=== PATIENT | female | born 1945 | race Caucasian/White ===

== ENCOUNTER → 2016-10-06 | Outpatient (CLI) | payer OTHER, BC ==
[~2016-10-06] MED LIST: CALCTAB5 PO; CENTTAB41; CEPH500C2 PO; CRS10 PO; FRS/40 PO; FSM70 PO; IRON; POTA20TA16 PO; PRM/45 PO; STLS
--- NOTE | 2016-10-06 10:29 | DIAGNOSTIC IMAGING REPORT ---
BILATERAL LOWER EXTREMITY VENOUS DOPPLER HISTORY: Pain BILAT CHRONIC EMBOLISM/THROMBOS COMPARISON STUDY: None. FINDINGS: There is normal compressibility, flow, and augmentation within the bilateral lower extremity deep venous systems. IMPRESSION: No DVT within the right or left lower extremity. Electronically signed by: Franco Hanson M.D. 10/06/2016 10:27 AM Dictated Date/Time: 10/06/2016 10:26 AM
== END | disposition home or self-care (01) ==
LOC: C.ULTR 09:40
PROVIDERS: ATTEND Podiatrist
DX: I70.293 Other atherosclerosis of native arteries of extremities, bilateral legs (principal); M79.675 Pain in left toe(s); M79.674 Pain in right toe(s)

== ENCOUNTER → 2017-11-19 | Outpatient (CLI) | payer OTHER, BC ==
[~2017-11-19] MED LIST changes: +POTA-639 PO; -POTA20TA16 PO
--- NOTE | 2017-11-19 12:46 | DIAGNOSTIC IMAGING REPORT ---
R TIBIA/FIBULA 2 VIEWS ROUTINE HISTORY: 72 years-old Female OSTEOPENIA acute right lower leg pain and swelling with fall. COMPARISON: None available TECHNIQUE: 2 views of the right tibia and fibula FINDINGS: The bones appear mildly demineralized. Mild marginal spurring about the tibial spines with mild medial and lateral compartment degenerative changes. Small calcified about the Achilles insertion site calcaneus. There is no acute fracture or dislocation. Peripheral arterial calcifications are noted. There is a focal area of soft tissue swelling within the superficial subcutaneous pretibial tissues measuring up to 3.6 x 0.8 cm. IMPRESSION: 1. No acute fracture. 2. Focal area of soft tissue swelling within the superficial subcutaneous pretibial tissues measures up to 3.6 cm in length. The above report was generated using voice recognition software. It may contain grammatical, syntax or spelling errors. Electronically signed by: Roger Mccabe M.D. 11/19/2017 12:45 PM Dictated Date/Time: 11/19/2017 12:43 PM
== END | disposition home or self-care (01) ==
LOC: C.RADBC 12:15
PROVIDERS: ATTEND Nurse Practitioner Family
DX: M85.88 Other specified disorders of bone density and structure, other site (principal)

== ENCOUNTER 2023-02-08 12:51 | Observation (INO) ==
[2023-02-08 14:02] LABS: Basophils # (auto) 0.03 K/uL (0.00-0.20); Basophils % (auto) 0.5 %; Eosinophils # (auto) 0.19 K/uL (0.00-0.50); Eosinophils % (auto) 3.1 %; Hematocrit (blood only) 39.1 % (37.0-47.0); Hemoglobin 13.5 g/dl (12.0-16.0); Immature Granulocytes # (auto) 0.01 K/uL (0.01-0.20); Immature Granulocytes % (auto) 0.2 %; Lymphocytes % (auto) 21.5 %; Mean Corpuscular Hemoglobin 32.1 pg (25.0-34.0); Mean Corpuscular Hgb Conc 34.5 g/dL (32.0-36.0); Mean Corpuscular Volume 93.1 fL (80.0-100.0); Monocytes # (auto) 0.33 K/uL (0.11-0.59); Monocytes % (auto) 5.4 %; Neutrophils % (auto) 69.3 %; Platelet Count 210 K/uL (130-400); RDW Coefficient of Variation 12.4 % (11.5-14.5); RDW Standard Deviation 42.2 fL (36.4-46.3); White Blood Count 6.06 K/ul (4.8-10.8)
[2023-02-08 14:19] LABS: Alanine Aminotransferase 12 U/L (7-52); Albumin Globulin Ratio 1.3 (0.9-2); Albumin Level 3.8 gm/dl (3.4-5.0); Alkaline Phosphatase 58 U/L (34-104); Anion Gap 6 (3-11); Aspartate Aminotransferase 18 U/L (13-39); BUN Creatinine Ratio 13.8 (10-20); Bilirubin,Total 0.5 mg/dl (0.2-1.0); Blood Urea Nitrogen 15 mg/dl (6-23); Carbon Dioxide 30 mmol/L (21-32); Chloride 103 mmol/L (98-107); Creatinine Clr Calc Pharmacy 31.5 ml/min; Est GFR (African American) 57.1 ml/min; Est GFR (Non-African American) 49.3 ml/min; Globulin 2.9 gm/dl (2.5-4.0); Glucose 179 mg/dl (70-99(Fasting)); Potassium 3.1 mmol/L (3.5-5.1); Sodium 139 mmol/L (136-145); Total Protein 6.7 gm/dl (6.0-8.3)
[2023-02-08 14:28] LABS: INR 0.9 (0.9-1.1); Partial Thromboplastin Ratio 0.9; Partial Thromboplastin Time 24.3 Seconds (21.0-31.0); Prothrombin Time 9.9 Seconds (9.0-12.0)
--- NOTE | 2023-02-08 16:21 | Ultrasound Report ---
LEFT LOWER EXTREMITY VENOUS DOPPLER HISTORY: Acute pain and swelling of the left lower leg Redness, swelling, pain,DVT COMPARISON STUDY: 01/29/2023. FINDINGS: There is normal compressibility, flow, and augmentation within the left lower extremity [place] p venous system. Subcutaneous edema. IMPRESSION: No DVT within the left lower extremity. ACT 112: Negative or not required by law. Electronically signed by: Zia Mccabe M.D. 02/08/2023 4:19 PM
[2023-02-08] MEDS ORDERED: VANCOMYCIN HCL 1,250 MG in SODIUM CHLORIDE 0.9% 500 ML IV ONE (16:36)
[2023-02-08] MEDS ORDERED: VANCOMYCIN CONSULT ACTIVE PRN (16:36)
--- NOTE | 2023-02-08 16:40 | Emergency Department Note ---
Impression & Plan Cellulitis ED Provider Note NAME: ARGENTINA GIVENS AGE: 77 SEX: F : 1945 ARRIVES VIA: Walk-In INFORMANT: Patient, ED PROVIDER(S): Delano Stock MD CHIEF COMPLAINT worsening cellulitis HPI: This is a 77-year-old female presenting for worsening cellulitis of the left lower extremity. Patient states that previously she had sustained an injury to this left lower extremity. She notes that she was seen in the ER for cellulitis and given Keflex. Since then she has noticed slight worsening of the pain. Similar in terms of her redness, swelling. She was seen at wound care today who advised her to come into the hospital for worsening infection. At this time she has reported no fevers, chills, nausea or vomiting. ROS: See above HPI for pertinent positives & negatives. A total of 10 systems reviewed and were otherwise negative. PAST MEDICAL HISTORY: See Below PAST SURGICAL HISTORY: See Below FAMILY HISTORY: See Below SOCIAL HISTORY: See Below HOME MEDICATIONS: See Below ALLERGIES: See Below VITALS: See Below PHYSICAL EXAMINATION: General: resting comfortably in no acute distress Head: Normocephalic and atraumatic Eyes: Normal inspection, extraocular muscles intact, no conjunctival pallor Ear, nose, throat: Normal external exam Neck: Normal range of motion Respiratory: Patient is in no respiratory distress, lungs clear to auscultation bilaterally Cardiovascular: RRR without murmur appreciated GI: soft, nontender, no guarding or rebound Extremities: No left lower extremity shows multiple wounds, posterior wound with area of opening, no significant pus drainage, significant cellulitis and moderate swelling/fluctuance Neuro: The patient awake and alert, appropriately conversive,no focal decifits Skin: Warm, dry, and intact MEDICAL DECISION MAKING: This is a 77-year-old female presenting for worsening cellulitis of left lower extremity. We will do x-ray to rule out DVT however low likelihood. Patient's DVT study is not revealing of blood clot. Otherwise patient's blood work is reviewed by me showingNo leukocytosis or anemia, electrolytes are within normal limits abdomen/hypokalemia. LFTs within normal limits. Will admit for worsening cellulitis despite p.o. antibiotics. Triage Nursing notes reviewed. Prior medical records reviewed Vital Signs: reviewed and remarkable for no significant abnormalities Differential diagnosis: Low concern for neck Fash, consider cellulitis, DVT ER treatment provided: See below Diagnostics interpreted by me: ECG: None Cardiac Monitoring: An order was placed for continuous cardiac monitoring. The monitor shows a rate of 64 with sinus rhythm. Laboratory studies: As stated above and show below. Imaging studies: See below. Radiographic imaging was reviewed by myself Consultation(s): None Past Med/Surg History Medical History (Updated 02/08/23 @ 18:55 by Delano Stock MD) Hypokalemia Hx of deep venous thrombosis Coronary artery disease HLD (hyperlipidemia) H/O: HTN (hypertension) Cat bite Chronic venous insufficiency Surgical History Status post endovenous radiofrequency ablation of saphenous vein Venoseal procedure done 2020 H/O bladder repair surgery Hx of CABG H/O: hysterectomy H/O hernia repair Family History Other No significant family history Social History Smoking Status: Never smoker Hx Alcohol Use: Yes Alcohol Intake Frequency Comment: Very seldom Hx Substance Use: No Preferred Language: [place]al[place] Communication Ability: Effective Visual Impairment: Limited Hearing Ability: Normal Beliefs That Will Affect Care: None marital status: Current Living Situation: Spouse current occupational status: unemployed How many Children do You have: 3 How many Children do You have Comment: 2 children are local, one may help with care as needed. Spouse also able to assist as needed. Feels Safe at Home: Yes Diet: regular during the past year weight has: remained stable Assistive Devices: Stair Lift Allergies Allergies Allergy/AdvReac Type Severity Reaction Status Date / Time No Known Allergies Allergy Verified 01/31/23 11:36 Home Meds Home Medications Medication Instructions Recorded Confirmed aspirin 81 mg tablet,delayed 81 mg PO QAM 02/14/19 02/08/23 release (Adult Low Dose Aspirin) chlorthalidone 25 mg tablet 25 mg PO QAM 02/14/19 02/08/23 furosemide 40 mg tablet 40 mg PO QAM 02/14/19 02/08/23 multivitamin 1 tab PO HS 02/14/19 02/08/23 rosuvastatin 40 mg tablet (Crestor) 40 mg PO HS 02/14/19 02/08/23 conjugated estrogens 1.25 mg 1.25 mg PO DAILY 08/31/20 02/08/23 tablet (Premarin) cholecalciferol (vitamin D3) 25 25 mcg PO DAILY 08/29/22 02/08/23 mcg (1,000 unit) capsule ferrous sulfate 325 mg (65 mg 325 mg PO DAILY 08/29/22 02/08/23 iron) tablet potassium chloride 20 mEq 60 meq PO TID 01/16/23 02/08/23 tablet,extended release(part/cryst) calcium carbonate 600 mg calcium 600 mg PO BID 02/08/23 02/08/23 (1,500 mg) tablet (Calcium) riboflavin (vitamin B2) 100 mg 100 mg PO QAM 02/08/23 02/08/23 tablet (Vitamin B-2) Results & Data (ED) Vital Signs Vital Signs - 24 hr 02/08/23 13:06 02/08/23 14:54 02/08/23 16:59 Temperature 36.7 C Temperature Source Skin Pulse Rate 84 Pulse Rate [Finger] 67 64 Respiratory Rate 18 16 18 Respiratory Effort / Characteristics Non-Labored Spontaneous Non-Labored Spontaneous Respiratory Depth Normal Normal Respiratory Pattern Regular Blood Pressure 108/63 Blood Pressure [Right Arm] 128/71 113/57 L Blood Pressure Mean 78 Blood Pressure Mean [Right Arm] 90 75 Pulse Oximetry 98 96 98 Oxygen Delivery Method Room Air Room Air Room Air Sepsis Recent Fever Within 48 Hours No Sepsis New/Unexplained Change in Mental Status No Sepsis Action Taken by Nursing No Action Required Laboratory Data 02/08/23 13:34 02/08/23 13:34 Lab Results 02/08/23 Range/Units 13:34 WBC 6.06 (4.8-10.8) K/ul RBC 4.20 (4.20-5.40) M/uL Hgb 13.5 (12.0-16.0) g/dl Hct 39.1 (37.0-47.0) % MCV 93.1 (80.0-100.0) fL MCH 32.1 (25.0-34.0) pg MCHC 34.5 (32.0-36.0) g/dL RDW Std Deviation 42.2 (36.4-46.3) fL RDW Coeff of Vanda 12.4 (11.5-14.5) % Plt Count 210 (130-400) K/uL MPV 11.0 (9.4-12.4) fL Immature Gran % (Auto) 0.2 % Neut % (Auto) 69.3 % Lymph % (Auto) 21.5 % Franklin % (Auto) 5.4 % Eos % (Auto) 3.1 % Baso % (Auto) 0.5 % Neut # (Auto) 4.20 (1.40-6.50) K/uL Lymph # (Auto) 1.30 (1.20-3.40) K/uL Franklin # (Auto) 0.33 (0.11-0.59) K/uL Eos # (Auto) 0.19 (0.00-0.50) K/uL Baso # (Auto) 0.03 (0.00-0.20) K/uL Immature Gran # (Auto) 0.01 (0.01-0.20) K/uL PT 9.9 (9.0-12.0) Seconds INR 0.9 (0.9-1.1) APTT 24.3 (21.0-31.0) Seconds PTT Ratio 0.9 Sodium 139 (136-145) mmol/L Potassium 3.1 L (3.5-5.1) mmol/L Chloride 103 (98-107) mmol/L Carbon Dioxide 30 (21-32) mmol/L Anion Gap 6 (3-11) BUN 15 (6-23) mg/dl Creatinine 1.09 (0.6-1.2) mg/dl Est Cr Clr Drug Dosing 31.5 ml/min Est GFR ( Amer) 57.1 ml/min Est GFR (Non-Af Amer) 49.3 ml/min BUN/Creatinine Ratio 13.8 (10-20) Glucose 179 H (70-99(Fasting)) mg/dl Calcium 10.0 (8.6-10.3) mg/dl Total Bilirubin 0.5 (0.2-1.0) mg/dl AST 18 (13-39) U/L ALT 12 (7-52) U/L Alkaline Phosphatase 58 (34-104) U/L Total Protein 6.7 (6.0-8.3) gm/dl Albumin 3.8 (3.4-5.0) gm/dl Globulin 2.9 (2.5-4.0) gm/dl Albumin/Globulin Ratio 1.3 (0.9-2) Administered Medications Vancomycin HCl 1,250 mg/ (Sodium Chloride) 525 mls @ 200 mls/hr IV NOW ONE Stop: 02/08/23 19:13 Last Admin: 02/08/23 16:54 Dose: 200 mls/hr Documented By: MT Imaging Data Radiologist's Impression: Venous Doppler Study 02/08/23 15:11 LEFT LOWER EXTREMITY VENOUS DOPPLER HISTORY: Acute pain and swelling of the left lower leg Redness, swelling, pain,DVT COMPARISON STUDY: 01/29/2023. FINDINGS: There is normal compressibility, flow, and augmentation within the left lower extremity deep venous system. Subcutaneous edema. IMPRESSION: No DVT within the left lower extremity. ACT 112: Negative or not required by law. Electronically signed by: Zia Mccabe M.D. 02/08/2023 4:19 PM Discharge Plan Visit Data Chief Complaint: Wound Stated Complaint: INFECTION IN WOUND, REF BY WOUND CENTER ED Provider: Delano Stock Discharge Problem: Cellulitis Forms Stand Alone Forms: My [facility] Prescriptions Prescriptions: No Action ferrous sulfate 325 mg (65 mg iron) tablet 325 mg PO DAILY cholecalciferol (vitamin D3) 25 mcg (1,000 unit) capsule 25 mcg PO DAILY aspirin [Adult Low Dose Aspirin] 81 mg tablet,delayed release (DR/EC) 81 mg PO QAM multivitamin tablet 1 tab PO HS Rx Instructions: gummy chlorthalidone 25 mg tablet 25 mg PO QAM furosemide 40 mg tablet 40 mg PO QAM rosuvastatin [Crestor] 40 mg tablet 40 mg PO HS riboflavin (vitamin B2) [Vitamin B-2] 100 mg Tablet 100 mg PO QAM calcium carbonate [Calcium 600] 600 mg calcium (1,500 mg) Tablet 600 mg PO BID Premarin 1.25 mg tablet 1.25 mg PO DAILY potassium chloride 20 mEq tablet,ER particles/crystals 60 meq PO TID Referrals Referrals: Amol Voss MD [Primary Care Provider] -
--- NOTE | 2023-02-08 17:52 | History & Physical Report ---
Date of Service February 08, 2023 Assessment & Plan (1) Cellulitis of left lower leg: Plan: Erythematous, edematous LLE x3 weeks Came in at the [facility] wound clinic Patient recently finished a course of Keflex 500 mg p.o. twice daily x10 days Afebrile No leukocytosis Wound culture pending Started on vancomycin while inpatient Continue vancomycin, will add on Unasyn 3000g IV every 6 hours MRSA nasal swab pending CRP pending Continue Lasix 40 mg p.o. QAM for LLE edema A.m. CBC, BMP (2) H/O: HTN (hypertension): Plan: Continue chlorthalidone, Lasix (3) Hx of deep venous thrombosis: Plan: 5 years ago per patient Venous Doppler of RLE on arrival was negative for DVT (4) HLD (hyperlipidemia): Plan: Continue rosuvastatin (5) Hypokalemia: Plan: K 3.1 on arrival; may be chronic Continue potassium supplementation 60mEq p.o. TID Consider holding Lasix if potassium continues to decline Monitor with daily BMPs Plan Disposition: Obs -admit to [facility] [place] Full code Regular diet VTE PPx: Heparin 5000 units q12h History of Present Illness Chief Complaint: Wound Primary Care Provider: Amol Voss MD Mary Carmen is a 77-year-old female with PMH of venous stasis ulcers, DVT, cellulitis of the LLE. She was referred by the wound clinic for worsening pain and swelling of the left calf x3 weeks. Her lower left calf swelling began after she hit a chair in December causing an open wound that got infected. She then had a second injury to the LLE 3 weeks ago when a car table fell on her lower leg. Patient states that the LLE has been actively draining and hot to touch. Previously seen in the ED on 01/29/2023 and started on a course of cephalexin 500 mg p.o. twice daily x10 days. Patient reports she took the full course of Keflex except for her last pill today. Patient also reports a course of outpatient Doxycycline in early December. She has been taking advil 1 tab in the morning and 2 tabs at night (intermittently) for left calf pain. No radiation above the knee. Left calf pain is alleviated when walking, worse when laying in bed. Venous Doppler today showed no DVT in the LLE. Hx of DVT 5y ago. Vitals stable at time of admission. ED course: Vancomycin 1250 mg ROS: Patient endorses intermittent LLE pain and numbness. Patient denies fever, chills, nightsweat, [place], dizziness, lightheadedness, CP, pleuritic CP, SOB, abdominal pain, N/V/D, urinary s/s, burning with urination. PMHx of DVT in 2018. No PMHx of NH, CVA, diabetes, or cancer. Allergies Allergy/AdvReac Type Severity Reaction Status Date / Time No Known Allergies Allergy Verified 01/31/23 11:36 Home Medications Medication Instructions Recorded Confirmed Type aspirin 81 mg tablet,delayed 81 mg PO QAM 02/14/19 02/08/23 History release (Adult Low Dose Aspirin) chlorthalidone 25 mg tablet 25 mg PO QAM 02/14/19 02/08/23 History furosemide 40 mg tablet 40 mg PO QAM 02/14/19 02/08/23 History multivitamin 1 tab PO HS 02/14/19 02/08/23 History rosuvastatin 40 mg tablet (Crestor) 40 mg PO HS 02/14/19 02/08/23 History conjugated estrogens 1.25 mg 1.25 mg PO DAILY 08/31/20 02/08/23 History tablet (Premarin) cholecalciferol (vitamin D3) 25 25 mcg PO DAILY 08/29/22 02/08/23 History mcg (1,000 unit) capsule ferrous sulfate 325 mg (65 mg 325 mg PO DAILY 08/29/22 02/08/23 History iron) tablet potassium chloride 20 mEq 60 meq PO TID 01/16/23 02/08/23 History tablet,extended release(part/cryst) calcium carbonate 600 mg calcium 600 mg PO BID 02/08/23 02/08/23 History (1,500 mg) tablet (Calcium) riboflavin (vitamin B2) 100 mg 100 mg PO QAM 02/08/23 02/08/23 History tablet (Vitamin B-2) Past Med/Surg History Medical History (Updated 02/08/23 @ 18:55 by Delano Stock MD) Hypokalemia Hx of deep venous thrombosis Coronary artery disease HLD (hyperlipidemia) H/O: HTN (hypertension) Cat bite Chronic venous insufficiency Surgical History Status post endovenous radiofrequency ablation of saphenous vein Venoseal procedure done 2020 H/O bladder repair surgery Hx of CABG H/O: hysterectomy H/O hernia repair Family History Other No significant family history Social History Smoking Status: Former smoker Hx Alcohol Use: No Hx Substance Use: No Preferred Language: Kazakh Communication Ability: Effective Visual Impairment: Limited Hearing Ability: Normal Beliefs That Will Affect Care: None marital status: Current Living Situation: Spouse current occupational status: unemployed How many Children do You have: 3 How many Children do You have Comment: 2 children are local, one may help with care as needed. Spouse also able to assist as needed. Feels Safe at Home: Yes Safety Concerns: Feels Safe At This Time Diet: regular during the past year weight has: remained stable Assistive Devices: None Review of Systems 2 Review of Systems: See HPI above Physical Exam 2 Physical Exam: General: no acute distress; non-toxic appearing; well-nourished; cooperative HEENT: normocephalic, atraumatic; no scleral icterus; PERRLA w/ EOMs intact; moist mucus membrane; vision and hearing grossly intact Neck: supple; no JVD; no lymphadenopathy; trachea midline Skin: warm, dry without signs of tenting; no cyanosis; no rashes, bruising, lesions, or erythema noted CV: chest wall NTP; RRR; S1/S2 normal; no murmurs/rubs/gallops; pulses intact and symmetric at radial, DP, and PT Lungs: no acute respiratory distress; symmetrical chest wall expansion; clear breath sounds across all lung metcalf w/o adventitious sounds; no wheezing ABD: Soft, NTP; BS present; no rebound/guarding; no ascites; no distention; negative CVA tenderness RLE: Not warm to touch; nonerythematous; edematous LLE: Warm to touch; erythematous; edematous; wounds dressed on the posterior lower calf and mid lateral tibia MSK: no tics or fasciculations; patient exhibits the ability to wiggle toes; full ROM of LEs; +5/5 strength in the LEs b/l; bruising on right knee Neuro: A&Ox3; normal mood and affect; fluent speech; no focal deficits; sensation grossly intact in the LEs B/l Results & Data Results & Data Vital Signs (Past 12 Hours) Vital Signs Temp Pulse Pulse Resp BP BP Pulse Ox 02/08/23 16:59 64 18 113/57 L 98 02/08/23 14:54 67 16 128/71 96 02/08/23 13:06 36.7 C 84 18 108/63 98 O2 Del Method 02/08/23 16:59 Room Air 02/08/23 14:54 Room Air 02/08/23 13:06 Room Air Laboratory Results Abnormal lab results 02/08/23 Range/Units 13:34 Potassium 3.1 L (3.5-5.1) mmol/L Glucose 179 H (70-99(Fasting)) mg/dl Diagnostic Findings Venous Doppler Study 02/08/23 15:11 LEFT LOWER EXTREMITY VENOUS DOPPLER HISTORY: Acute pain and swelling of the left lower leg Redness, swelling, pain,DVT COMPARISON STUDY: 01/29/2023. FINDINGS: There is normal compressibility, flow, and augmentation within the left lower extremity deep venous system. Subcutaneous edema. IMPRESSION: No DVT within the left lower extremity. ACT 112: Negative or not required by law. Electronically signed by: Zia Mccabe M.D. 02/08/2023 4:19 PM Code Status & VTE Plan Code Status Full code VTE Prophylaxis Plan VTE Prophylaxis will be ordered: Yes Supervising Physician Co-Signing Physician Notes Patient seen and examined, chart reviewed, case discussed with Georges Valentino PA-C and I agree with the assessment and plan as above except as otherwise noted above. 77yo F who presents with LLE warmth, tenderness, erythema, and swelling unimproved after keflex. ON exam leg is w/ asymmetrical warmth with demarcated erythema, tenderness, and swelling. NO popliteral tenderness. Doppler for DVT. Nontoxic, no sepsis. Agree w/ coverage for cellulitis failing inpatient tx. UNasyn/vanc reasonable, wean vanc if MRSA swab negative. IF improved can target Augmentin for dc. Agree w/ assessment and management above PG Care Time/CCT Total # of Minutes Spent Total Time Spent with Patient: Total time spent is greater than 50% in coordination of care (as documented) at patient's floor/unit and/or counseling patient: Coding [place] [address] INT INP/OBS CARE 40MIN Patient Type Established Medical Decision Making Low Complexity Diagnoses Cellulitis of left lower leg L03.116 H/O: HTN (hypertension) Z86.79 Hx of deep venous thrombosis Z86.718 HLD (hyperlipidemia) E78.5 Hypokalemia E87.6
[2023-02-08 19:08] LABS: C Reactive Protein < 0.50 mg/dl (0-0.5)
[2023-02-08] MEDS ORDERED: ACETAMINOPHEN 325 MG TAB PO PRN (21:09)
[2023-02-08] MEDS: HEPARIN SOD 5,000 UNIT/0.5 ML VIAL SQ SCH (22:21)
[2023-02-08] MEDS: AMPICILLIN/SULBACTAM SOD 3,000 MG in SODIUM CHLOR 0.9% MINI-B 100 ML IV SCH (22:21)
[2023-02-08] MEDS: ROSUVASTATIN CALCIUM 20 MG TAB PO SCH (22:22)
[2023-02-08] MEDS: POTASSIUM CHLORIDE CRTAB 20 MEQ TABCR PO SCH (22:22)
[2023-02-09] MEDS: AMPICILLIN/SULBACTAM SOD 3,000 MG in SODIUM CHLOR 0.9% MINI-B 100 ML IV SCH ×4 (04:02→21:58)
[2023-02-09 07:30] LABS: Basophils # (auto) 0.04 K/uL (0.00-0.20); Basophils % (auto) 0.7 %; Eosinophils # (auto) 0.39 K/uL (0.00-0.50); Eosinophils % (auto) 6.8 %; Hematocrit (blood only) 35.7 % (37.0-47.0); Hemoglobin 12.4 g/dl (12.0-16.0); Immature Granulocytes # (auto) 0.01 K/uL (0.01-0.20); Immature Granulocytes % (auto) 0.2 %; Lymphocytes % (auto) 22.6 %; Mean Corpuscular Hemoglobin 32.3 pg (25.0-34.0); Mean Corpuscular Hgb Conc 34.7 g/dL (32.0-36.0); Mean Platelet Volume 10.8 fL (9.4-12.4); Monocytes # (auto) 0.54 K/uL (0.11-0.59); Monocytes % (auto) 9.4 %; Neutrophils # (auto) 3.46 K/uL (1.40-6.50); Neutrophils % (auto) 60.3 %; Platelet Count 181 K/uL (130-400); RDW Coefficient of Variation 12.5 % (11.5-14.5); RDW Standard Deviation 42.6 fL (36.4-46.3); Red Blood Count 3.84 M/uL (4.20-5.40); White Blood Count 5.74 K/ul (4.8-10.8)
[2023-02-09 07:51] LABS: BUN Creatinine Ratio 14.8 (10-20); Calcium 8.5 mg/dl (8.6-10.3); Creatinine Clr Calc Pharmacy 39.1 ml/min; Est GFR (Non-African American) 63.8 ml/min; Potassium 3.4 mmol/L (3.5-5.1)
[2023-02-09] MEDS: ESTROGENS, CONJUGATED 0.625 MG TAB PO SCH (07:59)
[2023-02-09] MEDS: POTASSIUM CHLORIDE CRTAB 20 MEQ TABCR PO SCH ×3 (08:00→20:21)
[2023-02-09] MEDS: CHLORTHALIDONE 25 MG TAB PO SCH (08:00)
[2023-02-09] MEDS: ASPIRIN 81 MG ECTAB PO SCH (08:00)
[2023-02-09] MEDS: FERROUS SULFATE 325 MG TAB PO SCH (08:00)
[2023-02-09] MEDS: FUROSEMIDE 40 MG TAB PO SCH (08:00)
[2023-02-09] MEDS: HEPARIN SOD 5,000 UNIT/0.5 ML VIAL SQ SCH ×2 (08:01→20:21)
--- NOTE | 2023-02-09 09:36 | Pharmacy Report ---
Pharmacy PK ABX Note - Date of Service February 09, 2023 - Assessment and Plan Assessment 77 year old F receiving empiric vancomycin and ampicillin/sulbactam for treatment of LLE cellulitis. Pertinent microbiologic data includes: MRSA nasal swab is negative, right leg cultures are pending, left leg cultures from December/ this month show no growth. Patient recently finished two outpatient antibiotic courses w/ cephalexin and doxycycline. Day # 2 of antimicrobial therapy. Plan Vancomycin * Loading dose: 1250 mg IV x 1 * Maintenance dose: 1000 mg IV every 24 hours * Regimen is predicted to achieve target AUC/IRVING of 400-600 mg/L.hr * Random level ordered for: 02/11/23 Ampicillin/sulbactam * 3 g IV q6h - appropriately dosed, no change Pharmacy will continue to follow and will adjust dose/frequency as necessary. Thank you. Pharmacy has transitioned to AUC monitoring for vancomycin. AUC/IRVING is the preferred PK/PD target and is associated with decreased risk of nephrotoxicity compared to traditional trough targets.
[2023-02-09] MEDS: VANCOMYCIN HCL 1,000 MG in SODIUM CHLORIDE 0.9% 250 ML IV SCH (11:26)
[2023-02-09] MEDS ORDERED: PNEUMOCOCCAL VACCINE (PCV20) 20-VAL CONJ-DIP CRM/PF 0.5 ML SYR IM ONE (12:45)
[2023-02-09] MEDS ORDERED: VANCOMYCIN HCL 750 MG in SODIUM CHLORIDE 0.9% 250 ML IV SCH (14:00)
[2023-02-09] MEDS: COLLAGENASE OINT 30 GM TUBE EXT SCH (15:44)
--- NOTE | 2023-02-09 16:42 | Hospitalist Progress Note ---
Date of Service February 09, 2023 Assessment & Plan (1) Cellulitis of left lower leg: Plan: Erythematous, edematous LLE x3 weeks referral by wound clinic Patient recently finished a course of Keflex 500 mg p.o. twice daily x10 days Wound culture pending Started on vancomycin and Unasyn 3000g IV every 6 hours MRSA nasal swab negative usually does not correlate will outside of pneumonia Continue Lasix 40 mg p.o. QAM for LLE edema (2) H/O: HTN (hypertension): Plan: Continue chlorthalidone, Lasix (3) Hx of deep venous thrombosis: Plan: 5 years ago per patient Venous Doppler of RLE on arrival was negative for DVT (4) HLD (hyperlipidemia): Plan: Continue rosuvastatin (5) Hypokalemia: Plan: K 3.1 on arrival; may be chronic, repeat 3.4 Continue potassium supplementation 60mEq p.o. TID Consider holding Lasix if potassium continues to decline Plan Full code Regular diet VTE PPx: Heparin 5000 units q12h Admission and Anticipated Discharge Date Admission Date: February 08, 2023 Subjective pt has leg swelling and discoloration to LLE has multiple wounds from self inflicted trauma failed outpt antibiotics now on vancomycin and unasyn Physical Exam Physical Exam: Lower extremities have changes of chronic venous stasis bilaterally. Capillary refill is brisk and equal bilaterally. Patient has some discoloration to her left lower extremity with some swelling mostly in the lower calf area there is no fluctuance or tenderness there are no cords Results & Data Results & Data Vital Signs (Past 12 Hours) Vital Signs Temp Pulse Resp BP Pulse Ox O2 Del Method 02/09/23 15:08 97.7 F 65 16 107/69 97 Room Air 02/09/23 07:48 98.1 F 70 16 101/62 96 Room Air PG Care Time/CCT Total # of Minutes Spent Total Time Spent with Patient: Total time spent is greater than 50% in coordination of care (as documented) at patient's floor/unit and/or counseling patient: Coding Level of Care Code 48315 SUB INP/OBS CARE 2/35MIN Diagnoses Cellulitis of left lower leg L03.116 H/O: HTN (hypertension) Z86.79 Hx of deep venous thrombosis Z86.718 HLD (hyperlipidemia) E78.5 Hypokalemia E87.6
[2023-02-09] MEDS: ROSUVASTATIN CALCIUM 20 MG TAB PO SCH (20:21)
[2023-02-10] MEDS: AMPICILLIN/SULBACTAM SOD 3,000 MG in SODIUM CHLOR 0.9% MINI-B 100 ML IV SCH ×2 (04:00→09:54)
[2023-02-10] MEDS: ASPIRIN 81 MG ECTAB PO SCH (08:35)
[2023-02-10] MEDS: HEPARIN SOD 5,000 UNIT/0.5 ML VIAL SQ SCH (08:35)
[2023-02-10] MEDS: ESTROGENS, CONJUGATED 0.625 MG TAB PO SCH (08:35)
[2023-02-10] MEDS: COLLAGENASE OINT 30 GM TUBE EXT SCH (08:35)
[2023-02-10] MEDS: FERROUS SULFATE 325 MG TAB PO SCH (08:35)
[2023-02-10] MEDS: FUROSEMIDE 40 MG TAB PO SCH (08:35)
[2023-02-10] MEDS: CHLORTHALIDONE 25 MG TAB PO SCH (08:35)
[2023-02-10] MEDS: POTASSIUM CHLORIDE CRTAB 20 MEQ TABCR PO SCH (08:36)
[2023-02-10 10:28] LABS: Basophils # (auto) 0.03 K/uL (0.00-0.20); Basophils % (auto) 0.5 %; Eosinophils # (auto) 0.35 K/uL (0.00-0.50); Eosinophils % (auto) 6.2 %; Hematocrit (blood only) 40.3 % (37.0-47.0); Hemoglobin 13.3 g/dl (12.0-16.0); Immature Granulocytes # (auto) 0.01 K/uL (0.01-0.20); Immature Granulocytes % (auto) 0.2 %; Lymphocytes # (auto) 1.29 K/uL (1.20-3.40); Lymphocytes % (auto) 22.8 %; Mean Corpuscular Volume 96.9 fL (80.0-100.0); Mean Platelet Volume 10.8 fL (9.4-12.4); Monocytes # (auto) 0.56 K/uL (0.11-0.59); Monocytes % (auto) 9.9 %; Neutrophils # (auto) 3.43 K/uL (1.40-6.50); Neutrophils % (auto) 60.4 %; Platelet Count 187 K/uL (130-400); RDW Coefficient of Variation 12.7 % (11.5-14.5); RDW Standard Deviation 44.7 fL (36.4-46.3); Red Blood Count 4.16 M/uL (4.20-5.40); White Blood Count 5.67 K/ul (4.8-10.8)
[2023-02-10] MEDS: VANCOMYCIN HCL 1,000 MG in SODIUM CHLORIDE 0.9% 250 ML IV SCH (10:33)
[2023-02-10 10:38] LABS: BUN Creatinine Ratio 11.1 (10-20); Creatinine Clr Calc Pharmacy 27.3 ml/min; Est GFR (African American) 47.9 ml/min; Est GFR (Non-African American) 41.4 ml/min; Potassium 3.9 mmol/L (3.5-5.1)
--- NOTE | 2023-02-10 12:20 | Discharge Summary ---
Date of Service February 10, 2023 Admission HPI Per Admitting Provider Mary Carmen is a 77-year-old female with PMH of venous stasis ulcers, DVT, cellulitis of the LLE. She was referred by the wound clinic for worsening pain and swelling of the left calf x3 weeks. Her lower left calf swelling began after she hit a chair in December causing an open wound that got infected. She then had a second injury to the LLE 3 weeks ago when a car table fell on her lower leg. Patient states that the LLE has been actively draining and hot to touch. Previously seen in the ED on 01/29/2023 and started on a course of cephalexin 500 mg p.o. twice daily x10 days. Patient reports she took the full course of Keflex except for her last pill today. Patient also reports a course of outpatient Doxycycline in early December. She has been taking advil 1 tab in the morning and 2 tabs at night (intermittently) for left calf pain. No radiation above the knee. Left calf pain is alleviated when walking, worse when laying in bed. Venous Doppler today showed no DVT in the LLE. Hx of DVT 5y ago. Vitals stable at time of admission. ED course: Vancomycin 1250 mg ROS: Patient endorses intermittent LLE pain and numbness. Patient denies fever, chills, nightsweat, [place], dizziness, lightheadedness, CP, p leuritic CP, SOB, abdominal pain, N/V/D, urinary s/s, burning with urination. PMHx of DVT in 2018. No PMHx of HI, CVA, diabetes, or cancer. Principal Diagnosis left lower extremity cellulitis Discharge Exam patient awake alert appropriate. Card exam is regular lungs are clear. Her left lower extremity has improved greatly from 1 day prior and she will be discharged home on linezolid antibiotics Discharge Data Allergies Allergy/AdvReac Type Severity Reaction Status Date / Time No Known Allergies Allergy Verified 01/31/23 11:36 Consultations 02/08/23 17:48 ED Decision to Admit Stat Ordered Studies 02/08/23 15:11 US venous doppler LE Stat Hospital Course (1) Cellulitis of left lower leg: Erythematous, edematous LLE x3 weeks referral by wound clinic Patient recently finished a course of Keflex 500 mg p.o. twice daily x10 days Wound culture pinpoint growth recommitting wound Gram stain showed no growth from 02/08/2023 Started on vancomycin and Unasyn 3000g IV every 6 hourspatient be sent home on linezolid 600 twice daily to complete 1 week total therapy last dose will be 02/15/2023 MRSA nasal swab negative usually does not correlate will outside of pneumonia Continue Lasix 40 mg p.o. QAM for LLE edema (2) H/O: HTN (hypertension): Continue chlorthalidone, Lasix (3) Hx of deep venous thrombosis: 5 years ago per patient Venous Doppler of RLE on arrival was negative for DVT (4) HLD (hyperlipidemia): Continue rosuvastatin (5) Hypokalemia: replete Total Time Total Time Spent Total Time Spent (In Minutes): it required greater than 30 minutes to prepare this patient for discharge Discharge Plan Discharge Items Patient Disposition: Home - Self-Care Reason For Visit: LLE CELLULITIS Discharge Diagnosis: left lower extremity cellulitis Activity: Resume your previous activity Activity Comment: keep legs elevated Non-emergency contact: Primary Care Provider Call non-emergency contact if: your symptoms worsen Follow-up/Referrals: Amol Voss MD [Primary Care Provider] - Diet: Low Sodium (2gm) Addtl Attending Provider Instructions: Please keep legs elevated, eat a lower salt diet and follow up with wound care this coming week please wash wounds daily with gentle soap and water, dry and keep covered Pending Studies at Discharge: No Stand-Alone Forms: My [facility] [place], Smoking Cessation Medications and DC Order Prescriptions: New linezolid 600 mg tablet 600 mg PO BID Qty: 11 0RF Continued ferrous sulfate 325 mg (65 mg iron) tablet 325 mg PO DAILY cholecalciferol (vitamin D3) 25 mcg (1,000 unit) capsule 25 mcg PO DAILY aspirin [Adult Low Dose Aspirin] 81 mg tablet,delayed release (DR/EC) 81 mg PO QAM multivitamin tablet 1 tab PO HS Rx Instructions: gummy chlorthalidone 25 mg tablet 25 mg PO QAM furosemide 40 mg tablet 40 mg PO QAM rosuvastatin [Crestor] 40 mg tablet 40 mg PO HS riboflavin (vitamin B2) [Vitamin B-2] 100 mg Tablet 100 mg PO QAM calcium carbonate [Calcium 600] 600 mg calcium (1,500 mg) Tablet 600 mg PO BID Premarin 1.25 mg tablet 1.25 mg PO DAILY potassium chloride 20 mEq tablet,ER particles/crystals 60 meq PO TID Discharge Orders: Discharge Order (Routine); Ordered 02/10/23 Ordered By: Edwin Donohue Admission Data Admit Date/Time: 02/08/23 18:29 Attending Provider: Edwin Donohue Admit Provider: Spencer Alejandro Primary Care Provider: Amol Voss Other Providers: Spencer Alejandro Other Interventions: Discharge Summary Assessment (RN) Last Done: 02/10/23 11:23 Coding Level of Care Code 76178 INP/OBS DISCH >30 MIN Diagnoses Cellulitis of left lower leg L03.116 H/O: HTN (hypertension) Z86.79 Hx of deep venous thrombosis Z86.718 HLD (hyperlipidemia) E78.5 Hypokalemia E87.6
--- OUTSIDE RECORDS SUMMARY | 2023-02-12 11:50 | External Medical Summary | Continuity of Care Document ---
Author Name Unknown Organization [facility] [address] Address [address] [place], [place] [id number] Care Team Providers Care Private Investigator Name Role Phone Amol Voss Primary Care Physician [phone] [id number] Date(s): 12/11/22 - 12/11/22 [facility] [address] [facility] [address], [address] [place], [place] [phone] Encounter Diagnosis Hypokalemia(Final) - Discharge Disposition: Home or Self Care Attending Physician: MD Voss Michael P Referring Physician: MD Voss Michael P Allergies, Adverse Reactions, Alerts No Known Allergies Immunizations Given and Recorded Vaccine Date Status Refusal Reason SARS-CoV-2 mRNA ([id number]) 1 08/16/21 Recorded SARS-CoV-2 (COVID-19) mRNA BNT-162b2 vax 2 12/29/20 Recorded SARS-CoV-2 (COVID-19) mRNA BNT-162b2 vax 3 05/29/20 Recorded SARS-CoV-2 (COVID-19) mRNA BNT-162b2 vax 4 05/08/20 Recorded influenza virus vaccine, inactivated 12/09/19 Lobito rded zoster vaccine, inactivated 09/20/17 Recorded tetanus toxoids-diphtheria, Td (Adult) 05/23/16 Gi indira zoster vaccine live 05/20/14 Recorded 1Result Comment: 2022-01-05: Historical information-source unspecified 2Result Comment: 2022-01-05: Historical information-source unspecified 3Result Comment: 2022-01-05: Historical information-source unspecified 4Result Comment: 2022-01-05: Historical information-source unspecified Medications Aspirin Low Dose Start: 04/20/15 10:22:00, 81 mg =, PO, Daily Start Date: 04/20/15 Status: Ordered biotin Start: 05/27/20 9:24:00 EST Start Date: 05/27/20 Status: Ordered Calcium 600+D Start: 08/24/10 10:34:00, 1 tab, PO, Daily Start Date: 08/24/10 Status: Ordered chlorthalidone 25 mg oral tablet Start: 08/25/14 11:10:00, 1 tab, PO, Daily Start Date: 08/25/14 Status: Ordered Crestor 40 mg oral tablet Start: 02/08/22 15:17:00 EST, 1 tab, PO, Daily, Disp# 90 tab, Refills: 3, Pharmacy: [facility] Start Date: 02/08/22 Status: Ordered ferrous sulfate Start: 08/24/10 10:33:00, 325 mg =, PO, Daily, tab Start Date: 08/24/10 Status: Ordered Klor-Con M20 oral tablet, extended release Start: 01/16/22 14:45:00 EDT, 3 tab, PO, bid, Disp# 540 tab, Refills: 2, Pharmacy: [facility] Start Date: 01/16/22 Stop Date: 10/13/22 Status: Ordered multivitamin Start: 08/24/10 10:34:00, 1 tab, PO, Daily Start Date: 08/24/10 Status: Ordered Percocet 5 mg-325 mg oral tablet Start: 08/04/22 12:37:00 EDT, 1 tab, PO, q6h, Disp# 20 tab, Refills: 0, PRN: as needed for pain, Pharmacy: [facility] Start Date: 08/04/22 Stop Date: 08/09/22 Status: Ordered Premarin 1.25 mg oral tablet Start: 01/17/22 13:11:00 EDT, See Instructions, Disp# 90 tab, Refills: 3, Take one (1) tablet(s) daily for menopausals ymptoms, Pharmacy: [facility] Start Date: 01/17/22 Status: Ordered Problem List Condition Confirmation Course Effective Dates Status H ealth Status Informant Coronary arteriosclerosis Confirmed Active Difficulty swallowing Confirmed Active Hyperlipidemia Confirmed Active Hypokalemia Confirmed Active Leg wound, right Confirmed Active Procedures Procedure Date Related Diagnosis Body Site Status Shave biopsy and cauterization of skin 04/05/22 Completed Shave biopsy and cauterizati on of skin 1 11/25/19 Completed DXA of axial and appendicular skeleton 01/17/18 Completed Mammogram 2, 3 12/14/15 Completed Mohs surgery 4 09/14/15 Completed Mammogram 5 06/09/15 Completed DEXA - Dual energy X-ray len ton absorptiometry 6 06/03/15 Completed Mammogram 7 06/03/15 Completed PFT - lung volume testing 8 09/01/14 Completed Bypass 9 Completed Hernia 10 Completed Hysterectomy Completed 1left forearm 2Stable sonographic appearance of, located cyst versus benign solid masses on ultrasound in nthe 8:30 right breast, and 11:30 to 12:30 left breast. Although the overall mammographic picture is probably benign, most likely representing fibrocytic changes, another follow-up bilateral mammogram in 6 months is recommended. 3bilat with targeted u/s; stable bilsy mammograms with multi bilat circumscribed subcentimeter massis in breasts as well as diffuse bilat scattered and grouped benign-appearing mircocalcifications-- Repeat 6 months recommended 4SCC, left chest. 51. hypoechoic 9mm mass in the left breast at 11:30, which corresponds with one of the mammographic masses and is probably benign and likely represents a complicated cyst versus a fibroadenpoma. 2. circumscribed 5mm mass in the right breast at 8:30, which corresponds with one of the mammographic masses and and is probaly benign and likely represents a complicated cyst.recommend follow-up diagnostic mammogram in 6 months to comfirm stability. 3.Loosely grouped calcification in the right upper quadrant, which are probaly benign and recommended follow-up diagnostic mammogram in 6 months to comfirm stability. 4. Benign 7mm simple cyst in the left breast at 12;00, which corresponds with the other mammographic mass. A follow-up bilateral diagnostic mammogram and an US in 6months is recommended 6Fracture risk is moderate. Treatment advised. Follow-up exam in May 2017. 7Bilateral breast masses and right upper outer quadrant calcifications, for which additional imagingevaluation is recommended given no priors to document stability. The patient will be called to schedule an appointment. 8Baseline spirometry is within normal limits. 9double bypass of heart 10Repaired Results Laboratory List Name Date Comprehensive Metabolic Panel (COMP META B PANEL) 12/11/22 Most recent to oldest [Reference Range]: 1 eGFR CKD-EPI [>60 mL/min/1.73 m2] 59 mL/ min/1.73 m2 1 *LOW* (12/11/22 10:27 AM) Estimated CrCl 35.14 mL/min (12/11/22 11:16 AM) Anion Gap [5-14 mmol/L] 5 mmol/L (12/11/22 10:27 AM) Alb [3.5-5.0 g/dL] 3.9 g/dL (12/11/22 10:27 AM) Alk Phos [38-126 unit/L] 67 unit/L (12/11/22 10: AM) ALT [<35 unit/L] 18 unit/L (12/11/22 10:27 AM) AST [15-46 unit/L] 25 unit/L (12/11/22 10:27 AM) BUN [7-20 mg/dL] 16 mg/dL (12/11/22 10:27 AM) Ca [8.4-10.2 mg/dL] 9.9 mg/dL (12/11/22 10:27 AM) Cl- [96-107 mmol/L] 100 mmol/L (12/11/22 10:27 AM) HCO3 [22-30 mmol/L] 33 mmol/L *HI* (12/11/22 10:27 AM) Cret [0.60-1.00 mg/dL] 0.99 mg/dL (12/11/22 10:27 AM) Glu [74-106 mg/dL] 89 mg/dL (12/11/22 10:27 AM) K [3.5-5.1 mmol/L] 3.5 mmol/L (12/11/22 10:27 AM) Na [137-145 mmol/L] 138 mmol/L (12/11/22 10:27 AM) T Bili [0.2-1.3 mg/dL] 0.5 mg/dL (12/11/22 10:27 AM) Prot [6.3-8.2 g/dL] 6.9 g/dL (12/11/22 10:27 AM) 1Result Comment: Testing Performed By: Dept of Pathology [facility] [address], [address], [place] [address] Social History Social History Type Response Tobacco Former smoker, Cigar ettes 1 Smoking Status Never smoked cigaret sunny Sex Female 1Quit smoking 10 years ago Patient Care team information Care Team Personnel Name: MD Shanika, Amol Medina Position: Physician - Internal Med Member Role: Primary Care Provider Address: Address: [address] [place] [address] [address] [place] [address] [place] Care Team Related Persons Name: Sabino GIVENS Address: home [address] [place] [address], [place] [id number]
--- OUTSIDE RECORDS SUMMARY | 2023-02-12 11:50 | External Medical Summary | Continuity of Care Document ---
Author Name Unknown Organization [facility] [address] Address [address] [place], [place] [id number] Care Team Providers Care Graduate School Dean Name Role Phone Amol Voss Primary Care Physician [phone] [id number] Date(s): 01/26/23 - 01/26/23 [facility] [address] [facility] [address], [address] [place], [place] [phone] Encounter Diagnosis Hypokalemia(Final) - Discharge Disposition: Home or Self Care Attending Physician: MD Voss Michael P Referring Physician: MD Voss Michael P Allergies, Adverse Reactions, Alerts No Known Allergies Immunizations Given and Recorded Vaccine Date Status Refusal Reason SARS-CoV-2 mRNA ([id number]) 1 08/16/21 Recorded SARS-CoV-2 (COVID-19) mRNA BNT-162b2 [...] Daily, Disp# 90 tab, Refills: 3, Pharmacy: [facility] Start Date: 02/08/22 Status: Ordered ferrous sulfate Start: 08/24/10 10:33:00, 325 mg =, PO, Daily, tab Start Date: 08/24/10 Status: Ordered Klor-Con M20 oral tablet, extended release Start: 01/05/23 17:49:00 EDT, 2 tab, PO, tid, Disp# 180 tab, Refills: 0, Pharmacy: [facility] Start Date: 01/05/23 Stop Date: 02/04/23 Status: Ordered multivitamin Start: 08/24/10 10:34:00, 1 tab, PO, Daily Start Date: 08/24/10 Status: Ordered Premarin 1.25 mg oral tablet Start: 01/09/23 12:10:00 EDT, See Instructions, Disp# 90 tab, Refills: 3, Take one (1) tablet(s) daily for menopausals ymptoms, Pharmacy: [facility] Start Date: 01/09/23 Status: Ordered Vitamin B2 Start: 12/28/22 9:08:00 EDT Start Date: 12/28/22 Status: Ordered Problem List Condition Confirmation Course [...] heart 10Repaired Results Laboratory List Name Date Magnesium Level (MAGNESIUM) 01/26/23 Potassium Level (POTASSIUM) 01/26/23 Most recent to oldest [Reference Range]: 1 K [3.5-5.1 mmol/L] 3.8 mmol/L 1 (01/26/23 9:17 AM) Mg [1.6-2.3 mg/dL] 2.1 mg/dL 2 (01/26/23 9:17 AM) 1Result Comment: Testing Performed By: Dept of Pathology [facility] [address], [address] [place] [address] 2Result Comment: Testing Performed By: Dept of Pathology [facility] [address], [address] [place] [address] Social History Social History Type Response Tobacco Former smoker, Cigar ettes 1 Smoking Status Former Smoker, quit > 1 yr Sex Female 1Quit smoking 10 years ago Patient Care team information Care Team Personnel Name: MD Shanika, Amol Medina Position: Physician - Internal Med Member Role: Primary Care Provider Address: Address: [address] [place] [address], [place] [address] [place] Care Team Related Persons Name: Sabino GIVENS Address: home [address] [place] [address], [place] [phone]
--- OUTSIDE RECORDS SUMMARY | 2023-02-12 11:50 | External Medical Summary | Summary of Care ---
Author Name Unknown Organization [facility] Address [address] [place] [address] Phone [phone] Care Team Providers Care Liner Machine Operator Name Role Phone Ta Voss MD Primary Care Provider + Encounter Details Date Type Department Care Team Description 09/14/2022 Abstract Gastroenterology, [facility] [address] [place] [address] Damaris Abarca MD [address] [facility] [place] [address] Allergies No known active allergiesdocumented as of this encounter (statuses as of 09/14/2022) Medications Medication Sig Dispensed Refills Start Date End Date Status CALCIUM + D 600-200 MG-UNIT PO TABS two daily 0 Active DAILY VITAMINS PO TABS daily 0 Active ASPIRIN EC 81 MG PO TBECIndications:Aorto coronary bypass status 1 TABLET DAILY 90 Tab 99 07/21/2011 Active CRESTOR 40 MG PO TABS Take by mouth. Takes in the evening 0 Active PREMARIN 1.25 MG PO TABS 1 daily 0 Active Ferrous Sulfate (IRON) 325 (65 Fe) MG TABS 1 Tablet in the morning. 0 Active Biotin 1000 MCG Tablet Take 1 Tablet by mouth in the morning. 0 Active Vitamin D 25 MCG (1000 UT) Oral Tablet Take by mouth. 0 Active Vitamin B Complex Oral Tablet Take 1 Tablet by mouth in the morning. 0 Active Probiotic Acidophilus BioBeads Oral Capsule Take by mouth 1 Capsule in the morning. 0 Active Furosemide 40 MG Oral Tablet (Lasix)Indications:Ao rtocoronary bypass status Take 1 Tablet (40 mg) by mouth in the morning. 90 Tablet 4 03/14/2022 Active Potassium Chloride ER 20 MEQ Oral Tablet Extended Release Take 3 Tablets by mouth in the morning and 3 Tablets before bedtime. 0 Active Chlorthalidone 25 MG Oral Tablet (Hygroton)Indications :Aortocoronary bypass status TAKE ONE TABLET BY MOUTH EVERY DAY 90 Tablet 3 04/18/2022 Active Ibuprofen 200 MG Oral Tablet (Motrin IB) Take 1 Tablet by mouth every 4 hours as needed. 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 SUMMARY: Goal: Establish test characteristics (sensitivity, specificity, PPV, NPV) of a circulating tumor DNA (ctDNA)-based test for cancer. Hypothesis: Circulating tumor DNA (ctDNA) and elevated protein biomarkers (together, the marker panel) can be detected in asymptomatic individuals with early cancer. Specific Aim 1: Determine the prevalence of a positive marker panel test in a prospective clinical cohort of 10,000 asymptomatic women ages 65 to 75 years. Specific Aim 2: Determine the sensitivity, specificity, positive predictive value (PPV) and negative predictive value (NPV) of a marker panel test to identify histologically proven cancers that develop within 5-years of the marker panel evaluation. CONTACTS: During normal business hours, contact study staff at ; after hours Tube Room Cashier via the [facility] hospital multiple knife edge trimmer operator . Please contact study team before resolving/deleting from patients problem list. Study phone number: [phone]. Diagnosis changed due to Research Module. Go to Snapshot for study details. Encounter for examination fo r normal comparison and control in clinical research program 11/05/2017 12/01/2021 Overview: DO NOT DELETE - [facility] Study: Project # [id number], Tube Room Cashier: Shankar Wolfe, MS, MPH. SUMMARY: Goal: Establish test characteristics (sensitivity, specificity, PPV, NPV) of a circulating tumor DNA (ctDNA)-based test for cancer. - Hypothesis: Circulating tumor DNA (ctDNA) and elevated protein biomarkers (together, the marker panel) can be detected in asymptomatic individuals with early cancer. - Specific Aim 1: Determine the prevalence of a positive marker panel test in a prospective clinical cohort of 10,000 asymptomatic women ages 65 to 75 years. - Specific Aim 2: Determine the sensitivity, specificity, positive predictive value (PPV) and negative predictive value (NPV) of a marker panel test to identify histologically proven cancers that develop within 5-years of the marker panel evaluation. - CONTACTS: During normal business hours, contact study staff at ; after hours Tube Room Cashier via the [facility] hospital multiple knife edge trimmer operator . - Please contact study team before resolving/deleting from patients problem list. Study phone number: [phone]. Diagnosis changed due to Research Module. Go to [employer] for study details. documented as of this encounter (statuses as of 09/14/2022) Immunizations Name Administration Dates Next Due COVID-19 mRNA, LNP-s, No Pre serve, 2-Dose Series (Verteego (Emerald Vision)) 12/29/2020,05/29/2020,05/08/2020 COVID-19, LNP-s, No Preserve , Delfino-sucrose, Ages 12+ (Pfizer) 08/16/2021 Seasonal Influenza, Quadriva lent Hd (Fluzone Hd) 03/20/2022 TD - Tetanus/Diptheria (ADULT) 05/23/2016 Varicella Zoster Vaccine (Adult) 05/20/2014 Zoster Vaccine Recombinant (Shingrix) 03/15/2018 ,09/20/2017 documented as of this encounter Social History Tobacco Use Types Packs/Day Years Used Date Smoking Tobacco: Former Cigarettes 1 42 Q uit: 07/20/2005 Smokeless Tobacco: Never Tobacco Cessation:Counseling Given: Not Answered Alcohol Use Standard Drinks/Week Comments Yes 0 (1 standard drink = 0.6 oz pur e alcohol) rare Sex Assigned at Date Recorded Not on file Job Start Date Occupation Industry Not on file Not on file Not on file documented as of this encounter Plan of Treatment Upcoming Encounters Date Type Specialty Care Team Description 12/28/2022 Office Visit Gastroenterology Damaris Abarca MD [address] [place] [address] 03/02/2023 Office Visit Cardiology Franco Lindsay PA-C [address] [place] [address] Health Maintenance Due Date Last Done Comments Depression Screening, Annual for Pts 12 and Over 1957 Hepatitis C Screening 1963 Pneumococcal Vaccine: 65+ Years (1 - PCV) 09/11/2011 DTaP,Tdap,and Td Vaccines (1 - Tdap) 05/24/2016 05/23/2016, 05/23/2016 DXA Scan 04/12/2017 04/12/2010 COVID-19 Vaccine (5 - Pfizer series) 10/11/2021 08/16/2021, 12/29/2020, 05/29/2020, Additional history exists Fecal Occult Blood Test Discontinued 01/27/2006 Colonoscopy Discontinued 07/14/2009, 02/14/2006 Colorectal Cancer Screening Discontinued Zoster Vaccines Completed 03/15/2018, 09/01, 05/20/2014 Influenza Vaccine (FLU shot) Completed 03/20/2022 Cologuard Discontinued GARDASIL-HPV IMMUNIZATION SERIES Aged Out No longer eligible based on patient's age to complete this topic Hepatitis B Aged Out No longer eligi ble based on patient's age to complete this topic MENINGOCOCCAL (MENACTRA/MENVEO) Aged Out No longer eligible based on patient's age to complete this topic Sigmoidoscopy Discontinued documented as of this encounter Medical Devices Implanted Type Area Bridge Repairer Device Identifier Shelf Expiration Date Model / Serial / Lot Mx60 Lens Implanted:Qty: 1 on 05/08/2017 by Toro Schultz MD at [facility] Left: Eye 10/30/2018 MX60 / [id number] / Lens 13.0 Mx60 - [id number] - [id number] Implanted:Qty: 1 on 05/15/2017 by Toro Schultz MD at OR [facility] Right: Eye [employer]OM[employer] : SURGICAL 01/30/2018 [id number] / [id number] / documented as of this encounter Advance Directives Latest Code Status on File Code Status Date Activated Date Inactivated Comments Full Code 05/15/2017 6:36 AM 05/15/2017 1:33 PM This order reflects the patients wishes and were consensually agreed upon. Code Status History Code Status Date Activated Date Inactivated Comments Full Code 05/08/2017 8:16 AM 05/08/2017 1:57 PM This or smitha reflects the patients wishes and were consensually agreed upon. Care Teams Liner Machine Operator Relationship Specialty Start Date End Date Ta Voss MD [address] [place] [id number] PCP - General Sports Medicine 08/23/22 documented as of this encounter
--- OUTSIDE RECORDS SUMMARY | 2023-02-12 11:50 | External Medical Summary | Summary of Care ---
Author Name Unknown Organization [facility] Address [address] [place] [address] Phone [phone] Care Team Providers Care Director Decision Support Name Role Phone Unavailable Primary Care Provider Unavailabl e Reason for Visit * Reason Onset Date Comments Appointment 08/16/2022 Encounter Details Date Type Department Care Team Description 08/16/2022 Telephone Cardiology, [facility] [place] [address] Tosin Atkins CRNP [address] [facility] [address] App[facility] Allergies No known active allergiesdocumented as of this encounter (statuses as of 08/16/2022) Medications Medication Sig Dispensed Refills Start Date End Date Status CALCIUM + D 600-200 MG-UNIT PO TABS two daily 0 Active DAILY VITAMINS PO TABS daily 0 Active ASPIRIN EC 81 MG PO TBECIndications:Aorto coronary bypass status 1 TABLET DAILY 90 Tab 99 07/21/2011 Active CRESTOR 40 MG PO TABS 1 daily 0 Act johan PREMARIN 1.25 MG PO TABS 1 daily [...] EVERY DAY 90 Tablet 3 04/18/2022 Active documented as of this encounter (statuses as of 08/16/2022) Active Problems Problem Noted Date Diaphragmatic hernia 09/20/2009 Other acute embolism veins 05/09/2006 Aortocoronary bypass status 05/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 SUMMARY: Goal: Establish test [...] contact study staff at ; after hours Education Program Associate via the [facility] punch operator . Please contact study team before resolving/deleting from patients problem list. Study phone number: [phone]. Diagnosis changed due to Research Module. Go to Snapshot for study details. Encounter for examination fo r normal comparison and control in clinical research program 11/05/2017 12/01/2021 Overview: DO NOT DELETE - [facility] Study: Project # [id number], Education Program Associate: Shankar Wolfe, MS, MPH. SUMMARY: Goal: Establish [...] contact study staff at ; after hours Education Program Associate via the [facility] hospital center punch operator . - Please contact study team before resolving/deleting from patients problem list. Study phone number: [phone]. Diagnosis changed due to Research Module. Go to Snapshot for study details. documented as of this encounter (statuses as of 08/16/2022) Immunizations Name Administration Dates Next Due COVID-19 mRNA, LNP-s, No Pre serve, 2-Dose Series (Weibu) 12/29/2020,05/29/2020,05/08/2020 COVID-19, LNP-s, No Preserve , Delfino-sucrose, Ages 12+ (Weibu) 08/16/2021 Seasonal Influenza, Quadriva lent Hd (Fluzone Hd) 03/20/2022 TD - Tetanus/Diptheria (ADULT) 05/23/2016 Varicella Zoster Vaccine (Adult) 05/20/2014 Zoster Vaccine Recombinant (Shingrix) 03/15/2018 ,09/20/2017 documented as of this encounter Social History Tobacco Use Types Packs/Day Years Used Date Smoking Tobacco: Former Cigarettes 1 42 Q uit: 07/20/2005 Smokeless Tobacco: Never Alcohol Use Standard Drinks/Week Comments Yes 0 (1 standard drink = 0.6 oz pur e alcohol) rare Sex Assigned at Date Recorded Not on file Job Start Date Occupation Industry Not on file Not on file Not on file documented as of this encounter Miscellaneous Notes * Telephone Encounter - CANDY Shabazz - 08/16/2022 1:46 PM EDT Spoke with pt. Pt is scheduled 03/02/23 with Franco. * Telephone Encounter - Felton Burt RN - 08/16/2022 1:40 PM EDT Patient phoned the clinic and is asking who will be taking care of refilling her scripts since Dr. Forte is no longer with us. I told he will will refill her scripts when they are do and she statedshe always has a yearly appointment with cardiology. She was just seen by Dr. Forte in 03/2022. Iexplained scheduling will call her back to schedule yearly appointment. documented in this encounter Plan of Treatment Upcoming Encounters Date Type Specialty Care Team Description 12/28/2022 Office Visit Gastroenterology Damaris Abarca MD [address] [place] [id number] 03/02/2023 Office Visit Cardiology Franco Lindsay PA-C [address] [place] [id number] Health Maintenance Due Date Last Done Comments Depression Screening, Annual for Pts 12 and Over 1957 Hepatitis C Screening 1963 Pneumococcal Vaccine: 65+ Years (1 - PCV) 09/11/2011 DTaP,Tdap,and Td Vaccines (1 - Tdap) 05/24/2016 05/23/2016 DXA Scan 04/12/2017 04/12/2010 COVID-19 Vaccine (5 - Booster for Pfizer series) 10/11/2021 08/16/2021, 12/29/2020, 05/29/2020, Additional [...] this encounter Medical Devices Implanted Type Area Wood Chopper Device Identifier Shelf Expiration Date Model / Serial / Lot Mx60 Lens Implanted:Qty: 1 on 05/08/2017 by Toro Schultz MD at OR [facility] Left: Eye 10/30/2018 MX60 / [id number] / Lens 13.0 Mx60 - [id number] - [id number] Implanted:Qty: 1 on 05/15/2017 by Toro Schultz MD at OR [facility] Right: Eye [employer] : SURGICAL 01/30/2018 MX60-13.0 / [id number] / documented as of this encounter Advance [...]
--- OUTSIDE RECORDS SUMMARY | 2023-02-12 11:50 | External Medical Summary | Continuity of Care Document ---
Author Name Unknown Organization [facility] [address] Address [address] [place], [place] [id number] Care Team Providers Care Creel Operator Name Role Phone Amol Voss Primary Care Physician [phone] [id number]s): 01/03/23 - 01/03/23 [facility] [address] [facility] [address], [address] [place], [place] [phone] Encounter Diagnosis Hypokalemia(Final) - Other specified disorders of veins(Final) - Atherosclerotic heart disease of [place] coronary artery without angina pectoris (Final) - Discharge Disposition: Home or Self Care Attending Physician: MD Voss Michael P Referring Physician: MD Voss Michael P Allergies, Adverse Reactions, Alerts No Known Allergies Immunizations Given and Recorded Vaccine Date Status Refusal Reason SARS-CoV-2 mRNA (cuaysrpyjvf-yohe-dvw) 1 08/16/21 Recorded SARS-CoV-2 (COVID-19) mRNA BNT-162b2 [...] Daily, Disp# 90 tab, Refills: 3, Pharmacy: [facility] Start Date: 02/08/22 Status: Ordered ferrous sulfate Start: 08/24/10 10:33:00, 325 mg =, PO, Daily, tab Start Date: 08/24/10 Status: Ordered Klor-Con M20 oral tablet, extended release Start: 01/05/23 17:49:00 EDT, 2 tab, PO, tid, Disp# 180 tab, Refills: 0, Pharmacy: [facility] Start Date: 01/05/23 Stop Date: 02/04/23 Status: Ordered multivitamin Start: 08/24/10 10:34:00, 1 tab, PO, Daily Start Date: 08/24/10 Status: Ordered Premarin 1.25 mg oral tablet Start: 01/17/22 13:11:00 EDT, See Instructions, Disp# 90 tab, Refills: 3, Take one (1) tablet(s) daily for menopausals ymptoms, Pharmacy: [facility] Start Date: 01/17/22 Status: Ordered Vitamin B2 Start: 12/28/22 9:08:00 [...] Comprehensive Metabolic Panel (COMP META B PANEL) 01/03/23 Creatinine, Urine, Random (CREATININE, R D URINE) 01/03/23 Phosphorus Level (PHOSPHORUS) 01/03/23 Potassium, Urine, Random (POTASSIUM, RD URINE) 01/03/23 Most recent to oldest [Reference Range]: 1 eGFR CKD-EPI [>60 mL/min/1.73 m2] 66 mL/ min/1.73 m2 1 (01/03/23 9:45 AM) Estimated CrCl 38.65 mL/min (01/03/23 10:15 AM) Anion Gap [5-14 mmol/L] 5 mmol/L (01/03/23:45 AM) Alb [3.5-5.0 g/dL] 3.6 g/dL (01/03/23:45 AM) Alk Phos [38-126 unit/L] 59 unit/L (01/03/23:45 AM) ALT [<35 unit/L] 15 unit/L (01/03/23:45 AM) AST [15-46 unit/L] 23 unit/L (01/03/23:45 AM) BUN [7-20 mg/dL] 18 mg/dL (01/03/23:45 AM) Ca [8.4-10.2 mg/dL] 9.5 mg/dL (01/03/23 9:45 AM) Cl- [96-107 mmol/L] 100 mmol/L (01/03/23 9:45 AM) HCO3 [22-30 mmol/L] 33 mmol/L *HI* (01/03/23 9:45 AM) Cret [0.60-1.00 mg/dL] 0.90 mg/dL (01/03/23 9:45 AM) Glu [74-106 mg/dL] 70 mg/dL *LOW* (01/03/23:45 AM) K [3.5-5.1 mmol/L] 3.1 mmol/L *LOW* (01/03/23:45 AM) Na [137-145 mmol/L] 138 mmol/L (01/03/23 9:45 AM) PO4 [2.5-4.5 mg/dL] 2.9 mg/dL 2 (01/03/23 9:45 AM) T Bili [0.2-1.3 mg/dL] 0.4 mg/dL (01/03/23 9:45 AM) Prot [6.3-8.2 g/dL] 6.8 g/dL (01/03/23 9:45 AM) Creat (u) 13.34 mg/dL 3 (01/03/23 9:45 AM) K (u) 81.1 mmol/L 4 (01/03/23 9:45 AM) 1Result Comment: Testing Performed By: [facility] [address], [address] [place] [address] 2Result Comment: Testing Performed By: Dept of Path[facility] [address], [address] [place] [address] 3Result Comment: Reference Range for Random Urine Not Established. 4Result Comment: Reference Range for Random Urine Not Established. Social History Social History Type Response Tobacco Former smoker, Cigar ettes 1 Smoking Status Former Smoker, quit > 1 yr Sex Female 1Quit smoking 10 years ago Patient Care team information Care Team Personnel Name: MD Shanika, Amol Medina Position: Physician - Internal Med Member Role: Primary Care Provider Address: Address: [address] [place] [address], [place] [address] [place] Care Team Related Persons Name: Sabino GIVENS Address: home [address] [facility], [place] [phone]
--- OUTSIDE RECORDS SUMMARY | 2023-02-12 11:50 | External Medical Summary | Continuity of Care Document ---
Author Name Unknown Organization [address] Address [address] [place] [address] [place] [id number] Care Team Providers Care Continuous Process Machine Operator Name Role Phone ShanikaAmol stafford Adam Primary Care Physician [phone] Encounter [facility] [id number] Date(s): 08/14/22 - 08/14/[address] [place] [address], [address] [place] [phone] Encounter Diagnosis Leg wound, right(Discharge Diagnosis) - 08/14/22 Difficulty swallowing(Discharge Diagnosis) - 08/14/22 Discharge Disposition: Home or Self Care Attending Physician: MD Bustos Ravishankar E Referring Physician: MD Bustos Ravishankar E Allergies, Adverse Reactions, Alerts No Known Allergies Assessment and Plan Extracted from: Title:Office Visit Note Author:DO Salas Vinay Date:08/14/22 1.Leg wound, right chronic, not controlled -healing wound R LE for past 5 months s/p hitting leg on object -does not appear infected at this time -Pt has risk factors for slow wound healing. Referred to wound care for further management. -f/u prn 2.Difficulty swallowing chronic, not controlled -gradually worsening difficulty swallowing over past few years. Possible achalasia. Family history of esophageal narrowing. -previously seen by Dr. Abarca. Referred to GI. Immunizations Given and Recorded Vaccine Date Status Refusal Reason SARS-CoV-2 mRNA (elgxtxuzajs-vauu-pxo) 1 08/16/21 Recorded SARS-CoV-2 (COVID-19) mRNA BNT-162b2 [...] Daily, Disp# 90 tab, Refills: 3, Pharmacy: [facility] Start Date: 02/08/22 Status: Ordered ferrous sulfate Start: 08/24/10 10:33:00, 325 mg =, PO, Daily, tab Start Date: 08/24/10 Status: Ordered Klor-Con M20 oral tablet, extended release Start: 01/16/22 14:45:00 EDT, 3 tab, PO, bid, Disp# 540 tab, Refills: 2, Pharmacy: [facility] Start Date: 01/16/22 Stop Date: 10/13/22 Status: Ordered multivitamin Start: 08/24/10 10:34:00, 1 tab, PO, Daily Start Date: 08/24/10 Status: Ordered Percocet 5 mg-325 mg oral tablet Start: 08/04/22 12:37:00 EDT, 1 tab, PO, q6h, Disp# 20 tab, Refills: 0, PRN: as needed for pain, Pharmacy: [id number] Start Date: 08/04/22 Stop Date: 08/09/22 Status: Ordered Premarin 1.25 mg oral tablet Start: 01/17/22 13:11:00 EDT, See Instructions, Disp# 90 tab, Refills: 3, Take one (1) tablet(s) daily for menopausals ymptoms, Pharmacy: [facility] Start Date: 01/17/22 Status: Ordered Mental Status 08/14/22 Barriers to Learning one year None evide nt Mandatory Health Literacy Documentation Yes Health Literacy Communication Barriers N ever Primary Language Telugu Problem List Condition Confirmation Course Effective Dates Status H ealth Status Informant Coronary arteriosclerosis Confirmed Active Difficulty swallowing Confirmed Active Hyperlipidemia Confirmed Active Hypokalemia Confirmed Active Leg wound, right Confirmed Active Diagnosis Diagnosis Type Effective Dates Health Status Clinical Service Informant Leg wound, right Discharge Diagnosis 08/14/22 Difficulty swallowing Discharge Diagnosis 08/14/22 Procedures Procedure Date Related Diagnosis Body Site [...] normal limits. 9double bypass of heart 10Repaired Vital Signs Most recent to oldest [Reference Range]: 1 Patient Weight 52.1 kg (08/14/22 2:51 PM) Temperature [36.5-37.9 DegC] 36.7 DegC (08/14/22 2:51 PM) Blood Pressure 120/68mmHg (08/14/22 2:51 PM) Cuff Pulse Pressure 52 mmHg (08/14/22 2:51 PM) Social History Social History Type Response Tobacco Former smoker, Cigar ettes 1 Smoking Status Never smoked cigaret sunny Sex Female 1Quit smoking 10 years ago FCM Outpt Note * MD Akash, Tarun E: MODIFY MD Bustos Ravishankar E: MODIFY Event Display: FCM Outpt Note Authored Date: [id number] Chief Complaint [facility] It is weeping and smells R lower leg. History of Present Illness 76 yo female presents to clinic for leg wound. Also wants to discuss swallowing issue. Leg wound -hit R lower leg on object in Mar 2023. Was seen in clinic Apr 2021 and advised to let wound heal on its own. No antibiotics indicated at that time. Pt has h/o slow wound healing 2/2 CAD, HLD, venousstasis. Does follow with cardiology. -wound currently scabbed over with no surrounding erythema. Does have intermittent clear discharge but also with chronic edema bilaterally. -currently uses a bandage over wound intermittently otherwise does not use any topicals Difficulty swallowing, worsening -Sometimes feels food getting stuck in esophagus. Will stand up after eating to have food continue down GI tract. With these episodes has some associated sob. -previously seen by Dr. Abarca ([facility]). Has had barium swallow study 20+ years ago for unknown reason which was negative at the time -pt's mom had similar issues and had to have esophagus "stretched" Review of Systems As stated above in HPI and below: Constitutional: denies fevers, fatigue CV: denies chest pain Resp: denies shortness of breath GI: denies abdominal pain,nausea, vomiting, constipation, diarrhea : denies pain with urination, change in urinary frequency Physical Exam Vitals & Measurements T:36.7C BP:120/68 SpO2:99% WT:52.1kg WT:52.100kg(Dosing) PHQ2 Data(Data Documented on:08/14/2022 14:51) Emotional health assessment NEGATIVE General:in no acute distress, pleasant Lungs:CTAB Cardiovascular:RRR.2+ bilateral LE pitting edema. 1+ distal peripheral pulses. Skin: healing scabbed over wound R LE with mild serosanguineous drainage, no surrounding erythema, not warm, minimally tender to palpation Assessment/Plan 1.Leg wound, right chronic, not controlled -healing wound R LE for past 5 months s/p hitting leg on object -does not appear infected at this time -Pt has risk factors for slow wound healing. Referred to wound care for further management. -f/u prn 2.Difficulty swallowing chronic, not controlled -gradually worsening difficulty swallowing over past few years. Possible achalasia. Family history of esophageal narrowing. -previously seen by Dr. Abarca. Referred to GI. Attestation ATTENDING PHYSICIAN ATTESTATION: I saw the patient and confirmed ty portions of the history and physical exam and agree with the resident impression and plan as above. Dr. Tarun Bustos MD Problem List/Past Medical History Ongoing Coronary arteriosclerosis Difficulty swallowing Hyperlipidemia Hypokalemia Leg wound, right Historical Breath shortness Edema Neoplasm of uncertain behavior of skin Osteoporosis Procedure/Surgical History Shave biopsy and cauterization of skin (04/05/2022)Shave biopsy and cauterization of skin (11/25/2019)DXA of axial and appendicular skeleton (01/17/2018)Mammogram (12/14/2015)Mohs surgery (09/14/2015)Mammogram (06/09/2015)DEXA - Dual energy X-ray photon absorptiometry ()Mammogram (06/03/2015)PFT - lung volume testing (09/01/2014)HerniaHysterectomyBypass Medications acetaminophen-oxyCODONE(Percocet 5 mg-325 mg oral tablet), 1 tab, PO, q6h, PRN aspirin(Aspirin Low Dose), 81 mg, PO, Daily biotin calcium and vitamin D combination(Calcium 600+D), 1 tab, PO, Daily chlorthalidone(chlorthalidone 25 mg oral tablet), 25 mg= 1 tab, PO, Daily conjugated estrogens(Premarin 1.25 mg oral tablet), See Instructions, 3 refills ferrous sulfate, 325 mg, PO, Daily multivitamin, 1 tab, PO, Daily potassium chloride(Klor-Con M20 oral tablet, extended release), 60 mEq= 3 tab, PO, bid, 2 refills rosuvastatin(Crestor 40 mg oral tablet), 40 mg= 1 tab, PO, Daily, 3 refills Allergies NKA Social History Smoking Status Never smoked cigarettes Tobacco - Denies Tobacco Use Use:Former smoker Type:Cigarettes - Comments: Quit smoking 10 years ago Family History Heart attack: Father and Sister. Health Status Family Member(s) Immunizations Vaccine Date Status SARS-CoV-2 mRNA (xaokfvlrdkt-oskl-trt) 08/16/2021 Recorded Comments : 2022-01-05: Historical information-source unspecified SARS-CoV-2 (COVID-19) mRNA BNT-162b2 vax 12/29/2020 Recorded Comments : 2022-01-05: Historical information-source unspecified SARS-CoV-2 (COVID-19) mRNA BNT-162b2 vax 05/29/2020 Recorded Comments : 2022-01-05: Historical information-source unspecified SARS-CoV-2 (COVID-19) mRNA BNT-162b2 vax 05/08/2020 Recorded Comments : 2022-01-05: Historical information-source unspecified influenza virus vaccine, inactivated 12/09/2019 Recorded zoster vaccine, inactivated 09/20/2017 Recorded tetanus toxoids-diphtheria, Td (Adult) 05/23/2016 Given zoster vaccine live 05/20/2014 Recorded Recommendations Health Maintenance Pending(in the next year) OverDue Adult Influenza Vaccine due09/30/21and every 1year Due Colorectal Cancer Screening due08/14/22Unknown Frequency Hepatitis C Screening due08/14/22One-time only Medicare Annual Wellness Visit due08/14/22and every 1year Pneumococcal Vaccine Older Adults due08/14/22One-time only Shingles Vaccine due08/14/22One-time only Due In Future Body Mass Index not due until08/14/23and every 1year Satisfied(in the past 1 year) Satisfied Adult COVID-19 Vaccination on08/16/21.Satisfied by DANIEL Vargas Angela Body Mass Index on04/24/22.Satisfied by DANIEL Vargas Angela Lipid Screening on01/16/22.Satisfied by [employer] Osteoporosis Screening on06/12/22.Satisfied by DANIEL Patel Kiara Electronic Signature on File Electronically Reviewed/Signed by: Roman Salas MD Author Signature Dt/Tm:08/14/2022 04:39 PM Resident Department of Family Medicine Electronically Reviewed/Signed by: Tarun Bustos MD Cosigner Signature Dt/Tm: 08/14/2022 04:42PM Department of Family Medicine [facility] Patient Care team information Care Team Personnel Name: MD Shanika, Amol Medina Position: Physician - Internal Med Member Role: Primary Care Provider Address: Address: [address] [place] [address], [place] [address] [place] Care Team Related Persons Name: Sabino GIVENS Address: home [address] [place] [address], [place] [id number]
--- OUTSIDE RECORDS SUMMARY | 2023-02-12 11:50 | External Medical Summary | Continuity of Care Document ---
Author Name Unknown Organization [facility] [address] Address [address] [place], [place] [id number] Care Team Providers Care Potato Seed Cutter Name Role Phone Amol Voss Primary Care Physician [phone] [id number] Date[facility]s): 01/16/23 - 01/16/23 [facility] [address] [facility] [address], [facility] [address] [place], [phone] Encounter Diagnosis Hypokalemia(Final) - Other specified disorders of veins(Final) - Atherosclerotic heart disease of [place] coronary artery without angina pectoris (Final) - Hypokalemia(Discharge Diagnosis) - 01/17/23 Discharge Disposition: Home or Self Care Attending Physician: MD Voss Michael P Referring Physician: MD Voss Michael P Allergies, Adverse Reactions, Alerts No Known Allergies Immunizations Given and Recorded Vaccine Date Status Refusal Reason SARS-CoV-2 mRNA (qbxsskbotkl-gjyn-jam) 1 08/16/21 Recorded SARS-CoV-2 (COVID-19) mRNA BNT-162b2 [...] Daily, Disp# 90 tab, Refills: 3, Pharmacy: [facility] Start Date: 02/08/22 Status: Ordered ferrous sulfate Start: 08/24/10 10:33:00, 325 mg =, PO, Daily, tab Start Date: 08/24/10 Status: Ordered Klor-Con M20 oral tablet, extended release Start: 01/05/23 17:49:00 EDT, 2 tab, PO, tid, Disp# 180 tab, Refills: 0, Pharmacy: [facility] Start Date: 01/05/23 Stop Date: 02/04/23 Status: Ordered multivitamin Start: 08/24/10 10:34:00, 1 tab, PO, Daily Start Date: 08/24/10 Status: Ordered Premarin 1.25 mg oral tablet Start: 01/09/23 12:10:00 EDT, See Instructions, Disp# 90 tab, Refills: 3, Take one (1) tablet(s) daily for menopausals ymptoms, Pharmacy: [facility] Start Date: 01/09/23 Status: Ordered Vitamin B2 Start: 12/28/22 9:08:00 EDT Start Date: 12/28/22 Status: Ordered Problem List Condition Confirmation Course Effective Dates Status H ealth Status Informant Coronary arteriosclerosis Confirmed Active Difficulty swallowing Confirmed Active Hyperlipidemia Confirmed Active Hypokalemia Confirmed Active Leg wound, right Confirmed Active Diagnosis Diagnosis Type Effective Dates Health Status Clini thu Service Informant Hypokalemia Discharge Diagnosis 01/17/23 Non-Specified Procedures Procedure Date Related Diagnosis Body Site [...] heart 10Repaired Results Laboratory List Name Date Aldosterone (ALDOSTERONE) 01/16/23 Potassium Level (POTASSIUM) 01/16/23 Most recent to oldest [Reference Range]: 1 Aldosterone 40.5 1 (01/16/23 10:07 AM) K [3.5-5.1 mmol/L] 3.1 mmol/L 2 *LOW* (01/16/23 10:07 AM) 1Result Comment: Unit: ng/dL INTERPRETIVE INFORMATION: Aldosterone, Serum Reference intervals for age 15 and older: Upright ......... 4.0 - 31.0 ng/dL Supine .......... Less than or equal to 16.0 ng/dL Unspecified ..... Less than or equal to 31.0 ng/dL Normal serum levels of aldosterone are dependent on the sodium intake and whether the patient is upright or supine. High sodium intake will tend to suppress serum aldosterone, whereas low sodium intake will elevate serum aldosterone. The reference intervals for serum aldosterone are based on normal sodium intake. Access complete set of age- and/or gender-specific reference intervals for this test in the [facility] Test Directory ([employer]). Performed By: [facility] [address] [place] [address] Smooth Plater: Luis Alfredo Greene MD, PhD CLIA Number: [id number] 2Result Comment: Testing Performed By: Dept of Pathology [facility] [address], [address] [place] [address] Social History Social History Type Response Tobacco Former smoker, Cigar ettes 1 Smoking Status Former Smoker, quit > 1 yr Sex Female 1Quit smoking 10 years ago Patient Care team information Care Team Personnel Name: MD Shanika, Amol Medina Position: Physician - Internal Med Member Role: Primary Care Provider Address: Address: [address] [place] [address] [place] Care Team Related Persons Name: Sabino GIVENS Address: home [address] [facility], [place] [id number]
--- OUTSIDE RECORDS SUMMARY | 2023-02-12 11:50 | External Medical Summary | Summary of Care ---
Author Name Unknown Organization [facility] Address [address] [place] [address] Phone [phone] Care Team Providers Care Box Person Name Role Phone Ta Alanis MD Primary Care Provider + Reason for Visit * Auth/Cert Specialty Diagnoses / Procedures Referred By Aaron lópez Referred To Contact Diagnoses Difficulty swallowing Achalasia Difficulty swallowing [R13.10] Achalasia [K22.0] Procedures EGD, FLEXIBLE, DIAGNOSTIC ESOPHAGOGASTRODUODENOSCOPY (EGD), FLEXIBLE, TRANSORAL, DIAGNOSTIC Referral ID Status Reason Start Date Expiration Date Visits Re quested Visits Authorized [id number] Encounter Details Date Type Department Care Team Description 08/23/2022 Hospital Encounter ENDO [facility], Endoscopy Room [facility] [address] [place] [phone] Damaris Abarca MD [address] [place] [address] Upper GI Endoscopy Allergies No known active allergiesdocumented as of this encounter (statuses as of 08/24/2022) Medications Medication Sig Dispensed Refills Start Date [...] as of this encounter (statuses as of 08/24/2022) Active Problems Problem Noted Date Diaphragmatic hernia 09/20/2009 Other acute embolism veins 05/09/2006 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 SUMMARY: Goal: Establish test [...] contact study staff at ; after hours Nuclear Waste Process Operator via the [facility] hospital roller mill operator . Please contact study team before resolving/deleting from patients problem list. Study phone number: [phone]. Diagnosis changed due to Research Module. Go to [employer] for study details. Encounter for examination fo r normal comparison and control in clinical research program 11/05/2017 12/01/2021 Overview: DO NOT DELETE - [facility] [place] ALBERT Study: Project # [id number], Nuclear Waste Process Operator: Shankar Wolfe, MS, MPH. SUMMARY: Goal: Establish [...] contact study staff at ; after hours Nuclear Waste Process Operator via the [facility] roller mill operator . - Please contact study team before resolving/deleting from patients problem list. Study phone number: [phone]. Diagnosis changed due to Research Module. Go to [employer] for study details. documented as of this encounter (statuses as of 08/24/2022) Immunizations Name Administration Dates Next Due COVID-19 mRNA, LNP-s, No Pre serve, 2-Dose Series (Dynamics Direct) 12/29/2020,05/29/2020,05/08/2020 COVID-19, LNP-s, No Preserve , Delfino-sucrose, [...] on file documented as of this encounter Last Filed Vital Signs Vital Sign Reading Time Taken Comments Blood Pressure 99/48 08/23/2022 12:39 PM EDT Pulse 58 08/23/2022 12:39 PM EDT Temperature 2.2 C (36 F) 08/23/2022 12:23 PM EDT Respiratory Rate 18 08/23/2022 12:39 PM EDT Oxygen Saturation 97% 08/23/2022 12:39 PM EDT Inhaled Oxygen Concentration - - Weight 52.2 kg (115 lb) 08/21/2022 9:36 AM EDT Height 152.4 cm (5') 08/21/2022 9:36 AM EDT Body Mass Index 22.46 08/21/2022 9:36 AM EDT documented in this encounter H&P Notes * Damaris Abarca MD - 08/23/2022 11:56 AM EDT Endoscopy Pre-Procedure Assessment Name: Mary Carmen Heaton Date: 08/23/2022 Time: 11:56 AM Procedure(s): Upper GI Endoscopy; with Indication(s) of dysphagia or odynophagia Endoscopy Pre-Procedure Assessment: Prior to the procedure, the patient is identified. The patient's history, medications and allergieshave been reviewed. The patient is competent. The risks and benefits of the proposed procedure and the planned sedation have been discussed with the patient. All questions have been answered and informed consent for the procedure has been obtained. Prior to Admission medications Medication Sig Last Dose Discont. Ibuprofen 200 MG Oral Tablet (Motrin IB) Take 1 Tablet by mouth every 4 hours as needed. 08/22/2022 Chlorthalidone 25 MG Oral Tablet (Hygroton) TAKE ONE TABLET BY MOUTH EVERY DAY Past Week Potassium Chloride ER 20 MEQ Oral Tablet Extended Release Take 3 Tablets by mouth in the morning and 3 Tablets before bedtime. Past Week Furosemide 40 MG Oral Tablet (Lasix) Take 1 Tablet (40 mg) by mouth in the morning. 08/21/2022 Probiotic Acidophilus BioBeads Oral Capsule Take by mouth 1 Capsule in the morning. Past Week Vitamin B Complex Oral Tablet Take 1 Tablet by mouth in the morning. Past Week Vitamin D 25 MCG (1000 UT) Oral Tablet Take by mouth. Past Week Biotin 1000 MCG Tablet Take 1 Tablet by mouth in the morning. Past Week Ferrous Sulfate (IRON) 325 (65 Fe) MG TABS 1 Tablet in the morning. Past Week CRESTOR 40 MG PO TABS Take by mouth. Takes in the evening Past Week PREMARIN 1.25 MG PO TABS 1 daily Past Week ASPIRIN EC 81 MG PO TBEC 1 TABLET DAILY Past Week CALCIUM + D 600-200 MG-UNIT PO TABS two daily Past Week DAILY VITAMINS PO TABS daily Past Week Review of patient's allergies indicates: No Known Allergies BP 105/50 | Pulse 53 | Temp 35.9 C (96.6 F) (Tympanic) | Resp 18 | Ht 1.524 m (5') | Wt 52.2 kg(115 lb) | SpO2 96% | BMI 22.46 kg/m | BSA 1.49 m Physical Exam: Mental Status Examination: alert and oriented. Airway Examination: normal oropharyngeal airway and neck mobility. Respiratory Examination: clear to auscultation. CV Examination: normal. ASA Grade: II - A patient with mild systemic disease. Abdomen: negative This patient has undergone a preprocedural evaluation. A determination has been made to proceed with the planned procedure under [facility] procedural guidelines and the [facility] Non-Emergent, Elective Medical Services and Treatment Recommendations (published on 07-08-19). The community and hospital prevalence of COVID-19 has been discussed as well as this patient's specific risks associated with SARS-CoV-19 infection. Based upon the clinical acuity and patient-specific care considerations, this procedure is deemed a Tier II - Intermediate acuity treatment or service with either progression or the threat of progressive disease related to the delay in treatment. Not providing the service has the potential for increasing morbidity or mortality. After reviewing the risks and benefits, the patient is deemed in satisfactory condition to undergo the procedure. The anesthesia plan is to use general anesthesia. Damaris Abarca MD 08/23/2022 documented in this encounter Procedure Notes * Ta Alanis MD - 08/23/2022 12:07 PM EDTAssociated Order(s): UPPER GI ENDOSCOPY [facility] Patient Name: Mary Carmen Heaton Procedure Date: 08/23/2022 12:07 PM Date of : 1945 Admit Type: Outpatient Note Status: Finalized Date of : 1945 Admit Type: Outpatient Age: 76 Room: [facility] 3 Gender: Female Note Status: Finalized Procedure: Upper GI endoscopy Indications: Dysphagia Providers: Damaris Abarca MD (Doctor) Referring MD: Ta Alanis MD (Referring MD) Medicines: See the Anesthesia note for documentation of the administered medications Complications: No immediate complications. Procedure: Pre-Anesthesia Assessment: - ASA Grade Assessment: II - A patient with mild systemic disease. - Prior to the procedure, a History and Physical was performed, and patient medication allergies have been reviewed. The patient's tolerance of previous anesthesia has been reviewed. - Respiratory Examination: clear to auscultation. - CV Examination: normal. - The risks and benefits of the procedure and the sedation options and risks were discussed with the patient. All questions were answered and informed consent was obtained. - Patient identification and proposed procedure were verified prior to the procedure by the physician, the nurse and the e commerce architect. The procedure was verified in the pre-procedure area in the procedure room. - The medication list for this patient has been reviewed prior to the procedure and has been determined that the patient may proceed with the planned study. Any medication changes made as a result of the findings of this procedure have been discussed with the patient and/or primary care sales representative at the time of discharge from the facility. After obtaining informed consent, the endoscope was passed under direct vision. All instruments were visually inspected immediately before and after removal from the patient to ensure they are fully intact. Throughout the procedure, the patient's blood pressure, pulse, and oxygen saturations were monitored continuously. The [id number]-[id number] Endoscope ([id number]) was introduced through the mouth, and advanced to the second part of duodenum. The upper GI endoscopy was accomplished without difficulty. The patient tolerated the procedure well. Findings & Specimens: The Z-line was found 30 cm from the incisors. The distal esophagus was moderately tortuous. A few tertiary contractions were seen. There was no retained food or fluid in the esophagus. The GE junction was not snug to intubation. A 2 cm hiatal hernia was present. Hill 2. The stomach was normal. There were multiple shallow erosions in the duodenal bulb. The remainder of the duodenum was normal. A guidewire was placed and the scope was withdrawn. Dilation was performed at the gastroesophageal junction with a Savary dilator with no resistance at 16 mm. Impression: Suspect symptoms related to presbyesophagus. Duodenitis, likely NSAID related. Recommendation: - Discharge patient to home. Minimize NSAID use. Consider PPI therapy. Check Hp stool ag. Would ask PCP to consider esophagram if symptoms persistent. Damaris Abarca MD 08/23/2022 12:33:37 PM This report has been signed electronically. documented in this encounter Nursing Notes * Lilliana Simms RN - 08/23/2022 12:58 PM EDT Patient is alert, pain free, passing flatus and tolerating po fluids prior to discharge. Patient has been visited by Dr Abarca.. Patient has received and demonstrates understanding of discharge instructions. Patient is transported via w/c to private auto accompanied by endo staff. * Lilliana Simms RN - 08/23/2022 12:[address] Abarca in with pt discussing results of procedure .Pt sitting up tolerating PO fluids. * Lilliana Simms RN - 08/23/2022 12:23 PM EDT Received pt, sleeping, VSS, CM shows SB. Report given by Melinda LILLY. * Kelley Viera RN - 08/23/2022 12:19 PM EDT See anesthesia record for medication administered during procedure. Kelley Viera RN * Melinda Gonzalez RN - 08/23/2022 11:44 AM EDT The following pt discharge instructions reviewed with pt prior to prodedure: No driving today. No alcohol today. No signing of legal documents. Rest as much as possible today and can return to normal activities tomorrow. No operating any heavy equipment today. Diet as tolerated. Pt verbalized understanding. documented in this encounter Plan of Treatment Upcoming Encounters Date Type Specialty Care Team Description 12/28/2022 Office Visit Gastroenterology Damaris Abarca MD [address] [place] [id number] 03/02/2023 Office Visit Cardiology Franco Lindsay PA-C [address] [place] [id number] Health Maintenance Due Date Last Done Comments [...] this encounter Medical Devices Implanted Type Area Thread Grinder Tool Device Identifier Shelf Expiration Date Model / Serial / Lot Mx60 Lens Implanted:Qty: 1 on 05/08/2017 by Toro Schultz MD at OR [facility] Left: Eye 10/30/2018 MX60 / [id number] / Lens 13.0 Mx60 - [id number] - [id number] Implanted:Qty: 1 on 05/15/2017 by Toro Schultz MD at OR [facility] Right: Eye [employer] : SURGICAL 01/30/2018 MX60-13.0 / [id number] / documented as of this encounter Procedures Procedure Name Priority Date/Time Associated Diagnosis Comments UPPER GI ENDOSCOPY 08/23/2022 12 :07 PM EDT documented in this encounter Results * UPPER GI ENDOSCOPY (08/23/2022 12:07 PM EDT) 08/23/2022 12:0 7 PM EDT Procedure Note Ta Alanis MD - 08/23/2022 12:07 PM EDT [facility] Patient Name: Mary Carmen Heaton Procedure Date: 08/23/2022 12:07 PM Date of : 1945 Admit Type: Outpatient Note Status:Finalized Date of : 1945 Admit Type: Outpatient Age: 76 Room: Endo 3 Gender: Female Note Status: Finalized Procedure: Upper GI endoscopy Indications: Dysphagia Providers: Damaris Abarca MD (Doctor) Referring MD: Ta Alanis MD (Referring MD) Medicines: See the Anesthesia note for documentation of theadministered medications Complications: No immediate complications. Procedure: Pre-Anesthesia Assessment: - ASA Grade Assessment: II - A patient with mildsystemic disease. - Prior to the procedure, a History and Physicalwas performed, and patient medication allergies have been reviewed. Thepatient's tolerance of previous anesthesia has been reviewed. - Respiratory Examination: clear to auscultation. - CV Examination: normal. - The risks and benefits of the procedure and thesedation options and risks were discussed with the patient. All questions wereanswered and informed consent was obtained. - Patient identification and proposed procedurewere verified prior to the procedure by the physician, the nurse and the e commerce architect.The procedure was verified in the pre-procedure area in the procedure room. - The medication list for this patient has beenreviewed prior to the procedure and has been determined that the patient may proceedwith the planned study. Any medication changes made as a result of the findingsof this procedure have been discussed with the patient and/or primary care sales representative atthe time of discharge from the facility. After obtaining informed consent, the endoscope waspassed under direct vision. All instruments were visually inspected immediatelybefore and after removal from the patient to ensure they are fully intact. Throughout the procedure, the patient's bloodpressure, pulse, and oxygen saturations were monitored continuously. The [id number] ([id number]) was introduced through the mouth, and advanced to the second part ofduodenum. The upper GI endoscopy was accomplished without difficulty. The patienttolerated the procedure well. Findings & Specimens: The Z-line was found 30 cm from the incisors. The distal esophaguswas moderately tortuous. A few tertiary contractions were seen. There was no retained food or fluidin the esophagus. The GE junction was not snug to intubation. A 2 cm hiatal hernia was present. Hill 2. The stomach was normal. There were multiple shallow erosions in the duodenal bulb. Theremainder of the duodenum was normal. A guidewire was placed and the scope was withdrawn. Dilation wasperformed at the gastroesophageal junction with a Savary dilator with no resistance at 16 mm. Impression: Suspect symptoms related to presbyesophagus. Duodenitis, likely NSAID related. Recommendation: - Discharge patient to home. Minimize NSAID use.Consider PPI therapy. Check Hp stool ag. Would ask PCP to consider esophagram ifsymptoms persistent. Damaris Abarca MD 08/23/2022 12:33:37 PM This report has been signed electronically. Ta Alanis MD [facility] documented in this encounter Administered Medications Inactive Administered Medications - up to 3 most recent administrations Medication Order MAR Action Action Date Dose Rate Site Acetaminophen (Tylenol) tab 650 mg 650 mg, Oral, PRN Pain, Mild, Starting on Sun08/23/22 at 1231, Until Sun08/23/22 at 1659, For 1 dose, Maximum of 4 grams (4000 mg) per day., Post-op isolyte-S pH 7.4 infusion Intravenous, Plasma-LYTE 148, isolyte-S, and isolyte-S pH 7.4 are considered equivalent - including for MAR barcode scanning., CONTINUOUS, Starting on Sun08/23/22 at 1215, Until Sun08/23/22 at 1659, Pre-Op Continue from Pre-Op 08/23/2022 12:07 PM EDT 100 mL/hr New Bag 08/23/2022 11:40 AM EDT 100 mL/hr documented in this encounter Active and Recently Administered Medications Times are shown in EDT. Continuous Medication Order 08/21/2022 08/22/2022 08/23/2022 isolyte-S pH 7.4 infusion Intravenous, Plasma-LYTE 148, isolyte-S, and isolyte-S pH 7.4 are considered equivalent - including for MAR barcode scanning., CONTINUOUS, Starting on Sun08/23/22 at 1215, Until Sun08/23/22 at 1659, Pre-Op 1140 (New Bag - Prov ider: Melinda Gonzalez RN)1207 (Continue from Pre-Op - Provider: Melinda Casarez CRNA)1218 (Stopped - Provider: Melinda Casarez CRNA) PRN Medication Order 08/21/2022 08/22/2022 08/23/2022 Acetaminophen (Tylenol) tab 650 mg 650 mg, Oral, PRN Pain, Mild, Starting on Sun08/23/22 at 1231, Until Sun08/23/22 at 1659, For 1 dose, Maximum of 4 grams (4000 mg) per day., Post-op documented in this encounter Advance Directives Latest Code Status [...] and were consensually agreed upon. Care Teams Box Person Relationship Specialty Start Date End Date Ta Alanis MD [address] [place] [phone] PCP - General Sports Medicine 08/23/22 documented as of this encounter"
--- OUTSIDE RECORDS SUMMARY | 2023-02-12 11:50 | External Medical Summary | Continuity of Care Document ---
Author Name Unknown Organization [address] Address [address] [place] [address] [address] [place], [place] [id number] Care Team Providers Care Manager Terminal Name Role Phone Amol Voss Primary Care Physician [phone] Encounter [facility] [id number] Date(s): 12/28/22 - 12/28/[address] [place] [address], [address] [place] [address] [phone] Encounter Diagnosis Hypokalemia(Discharge Diagnosis) - 12/28/22 Chronic venous stasis(Discharge Diagnosis) - 12/28/22 Coronary artery disease(Discharge Diagnosis) - 12/28/22 Discharge Disposition: Home or Self Care Attending Physician: MD Voss Michael P Referring Physician: MD Voss Michael P Allergies, Adverse Reactions, Alerts No Known Allergies Assessment and Plan Extracted from: Title:Office Visit Note Author:MD Shanika, Angel ael P Date:12/28/22 1.Hypokalemia Unclear etiology, recommending that we proceed with further workup. 2.Chronic venous stasis Ongoing, continuing to work with vascular surgery. Will continue to follow along. 3.Coronary artery disease Stable at this time. Continue with ASA 81mg + rosuvastatin 40mg daily. I have spent 43 minutes in face to face interaction regarding review of ongoing medical conditions, discussion and counseling regarding diagnostic testing, discussion and counseling regarding treatment recommendations, discussion and counseling regarding management recommendations and non face to face time for chart review and documentation. Immunizations Given and Recorded Vaccine Date Status Refusal Reason SARS-CoV-2 mRNA ([id number]-akh) 1 08/16/21 Recorded SARS-CoV-2 (COVID-19) mRNA BNT-162b2 [...] Daily, Disp# 90 tab, Refills: 3, Pharmacy: [facility] Start Date: 02/08/22 Status: Ordered ferrous sulfate Start: 08/24/10 10:33:00, 325 mg =, PO, Daily, tab Start Date: 08/24/10 Status: Ordered Klor-Con M20 oral tablet, extended release Start: 12/14/22 7:31:00 EDT, 2 tab, PO, tid, Disp# 180 tab, Refills: 0, Pharmacy: [facility] Start Date: 12/14/22 Stop Date: 01/13/23 Status: Ordered multivitamin Start: 08/24/10 10:34:00, 1 tab, PO, Daily Start Date: 08/24/10 Status: Ordered Premarin 1.25 mg oral tablet Start: 01/17/22 13:11:00 EDT, See Instructions, Disp# 90 tab, Refills: 3, Take one (1) tablet(s) daily for menopausals vignesh, Pharmacy: [id number] Start Date: 01/17/22 Status: Ordered Vitamin B2 Start: 12/28/22 9:08:00 EDT Start Date: 12/28/22 Status: Ordered Mental Status 12/28/22 Barriers to Learning one year None evide nt Mandatory Health Literacy Documentation Yes Health Literacy Communication Barriers N ever Primary Language Setswana Problem List Condition Confirmation Course Effective Dates Status H ealth Status Informant Coronary arteriosclerosis Confirmed Active Difficulty swallowing Confirmed Active Hyperlipidemia Confirmed Active Hypokalemia Confirmed Active Leg wound, right Confirmed Active Diagnosis Diagnosis Type Effective Dates Health Status Clinical Service Informant Hypokalemia Discharge Diagnosis 12/28/22 Chronic venous stasis Discharge Diagnosis 12/28/22 Coronary artery disease Discharge Diagnosis 12/28/22 Procedures Procedure Date Related Diagnosis Body Site [...] to oldest [Reference Range]: 1 Patient Weight 54 kg (12/28/22 9:10 AM) Temperature [36.5-37.9 DegC] 36.6 DegC (12/28/22 9:10 AM) Heart Rate 62 bpm (12/28/22 9:10 AM) Respiratory Rate 22 br/min (12/28/22 9:10 AM) Blood Pressure 90/68mmHg (12/28/22 9:10 AM) Social History Social History Type Response Tobacco Former smoker, Cigar ettes 1 Smoking Status Former Smoker, quit > 1 yr Sex Female 1Quit smoking 10 years ago Medicine Outpt Note * MD Shanika, Amol Medina: PERFORM Event Display: Medicine Outpt Note Authored Date: [id number] Chief Complaint est care appt - no concerns History of Present Illness Mary Carmen Heaton is a 77 year old female who presents for follow up of her chronic medical conditions and to establish care with me. She is a former patient of Dr. Hoffman. She was last seen by Dr. Hoffman on01/05/22. Last cardiology appointment was 03/14/21. Of note, she has been on high doses of potassium (KCl 60mg BID). Recent K was 3.5mg/dl and continued temporarily until we could discuss today, prescribed as KCl 20mg TID. She has been on this longstanding. She has been on chlorthalidone since her CABGwhich helps with her lower extremity swelling. She has never been on any other medications. Denies any nausea, vomiting,chest pain or chest pressure. She has otherwise been feeling well without any acute concerns today. Past Medical History:#Chronic venous insufficiency: Seen by vascular medicine. 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; followed by [facility] #History of DVT: Left leg and left cephalic vein #Anemia: 2/2 iron deficiency #Hyperlipidemia #HFpEF Review of Systems As per HPI Physical Exam Vitals & Measurements T:36.6C HR:62(Monitored) RR:22 BP:90/68 SpO2:98% WT:54kg WT:54.000kg(Dosing) PHQ2 Data(Data Documented on:12/28/2022 09:09) Emotional health assessment NEGATIVE GEN: Well developed, well nourished, no acute distress HEENT: NCAT, MMM, EOMI, PERRL CV: RRR, no murmurs, normal S1 and S2 LUNG: Clear to auscultation bilaterally ABD: soft nontender, nondistended, bowel sounds normoactive EXT: Chronic venous stasis bilaterallywith varicosities MSK: Strength in the upper and lower extremities is preserved NEURO: AxOx3, moving all extremities; no focal neurologic deficits; CN II-XII grossly intact Assessment/Plan 1.Hypokalemia Unclear etiology, recommending that we proceed with further workup. 2.Chronic venous stasis Ongoing, continuing to work with vascular surgery. Will continue to follow along. 3.Coronary artery disease Stable at this time. Continue with ASA 81mg + rosuvastatin 40mg daily. I have spent 43 minutes in face to face interaction regarding review of ongoing medical conditions,discussion and counseling regarding diagnostic testing, discussion and counseling regarding treatment recommendations, discussion and counseling regarding management recommendations and non face to face time for chart review and documentation. Problem List/Past Medical History Ongoing Coronary arteriosclerosis Difficulty swallowing Hyperlipidemia Hypokalemia Leg wound, right Historical Breath shortness Edema Neoplasm of uncertain behavior of skin Osteoporosis Procedure/Surgical History Shave biopsy and cauterization of skin (04/05/2022)Shave biopsy and cauterization of skin (11/25/2019)DXA of axial and appendicular skeleton (01/17/2018)Mammogram (12/14/2015)Mohs surgery (09/14/2015)Mammogram (06/09/2015)DEXA - Dual energy X-ray photon absorptiometry ( 6)Mammogram (06/03/2015)PFT - lung volume testing (09/01/2014)HerniaHysterectomyBypass Medications aspirin(Aspirin Low Dose), 81 mg, PO, Daily biotin calcium and vitamin D combination(Calcium 600+D), 1 tab, PO, Daily chlorthalidone(chlorthalidone 25 mg oral tablet), 25 mg= 1 tab, PO, Daily conjugated estrogens(Premarin 1.25 mg oral tablet), See Instructions, 3 refills ferrous sulfate, 325 mg, PO, Daily multivitamin, 1 tab, PO, Daily potassium chloride(Klor-Con M20 oral tablet, extended release), 40 mEq= 2 tab, PO, tid riboflavin(Vitamin B2) rosuvastatin(Crestor 40 mg oral tablet), 40 mg= 1 tab, PO, Daily, 3 refills Allergies NKA Social History Smoking Status Former Smoker, quit > 1 yr Tobacco - Denies Tobacco Use Use:Former smoker Type:Cigarettes - Comments: Quit smoking 10 years ago Family History Heart attack: Father and Sister. Health Status Family Member(s) Immunizations Vaccine Date Status SARS-CoV-2 mRNA (athjemsqwwp-tjnz-etv) 08/16/2021 Recorded Comments : 2022-01-05: Historical information-source [...] the next year) OverDue Adult Influenza Vaccine due09/30/22and every 1year Due Hepatitis C Screening due12/28/22One-time only Medicare Annual Wellness Visit due12/28/22and every 1year Pneumococcal Vaccine Older Adults due12/28/22One-time only Shingles Vaccine due12/28/22One-time only Due In Future Body Mass Index not due until12/28/23and every 1year Satisfied(in the past 1 year) Satisfied Body Mass Index on04/24/22.Satisfied by DANIEL Vargas Angela Lipid Screening on01/16/22.Satisfied by Contributor_system, [employer] Osteoporosis Screening on06/12/22.Satisfied by DANIEL Patel Kiara Electronic Signature on File Electronically Reviewed/Signed by: Amol Voss MD Author Signature Dt/Tm:12/28/2022 09:48 AM Division of Internal Medicine MPM Patient Care team information Care Team Personnel Name: MD Shanika, Amol Medina Position: Physician - Internal Med Member Role: Primary Care Provider Address: Address: [address] [place] [address], [place] [address] Care Team Related Persons Name: Sabino HEATON Address: home [address] [place] [address], [place] [phone]
--- OUTSIDE RECORDS SUMMARY | 2023-02-13 20:53 | External Medical Summary | Continuity of Care Document ---
Author Name Unknown Organization [facility] [address] [id number] Care Team Providers Care Rn Provider Relations Name Role Phone Amol Voss Adam Primary Care Physician [phone] [id number] Date(s): 02/06/23 - 02/06/23 [facility] [address] [id number] Encounter Diagnosis AK (actinic keratosis)(Discharge Diagnosis) - 02/06/23 History of skin cancer(Discharge Diagnosis) - 02/06/23 Discharge Disposition: Home or Self Care Attending Physician: MD Denson David L Allergies, Adverse Reactions, Alerts No Known Allergies Assessment and Plan Extracted from: Title:Clinical Document Author:MD Denson David L Date:02/06/23 OUTPATIENT NOTE Name: ARGENTINA HEATON Patient Number:1 [id number] : 1945 Date of Service: 02/06/2023 _ Ms Florina castle. 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 He notes some lesions on her face. Physical examination: She is a well-developed well-nourished white female type I to type II skin. Alert and oriented x3. Examination of the face ears neck reveal erythematous hyperkeratotic macule in the right middle eyebrow left middle eyebrow and left upper medial cheek. These are all 3 to 4 mm in diameter. She defers examination of the trunk or extremities. Impression: #1 actinic keratosis on the face. #2 no evidence for new or recurrent skin cancer on the face ears or neck. Plan: After discussing the procedure risk benefits and scarring, she gives verbal consent for cryotherapy. Cryotherapy applied to the 3 AK's in the face. She tolerated very well. Wound care instruction given. Sun protection. She will return for recheck in 6 months. Immunizations Given and Recorded Vaccine Date Status Refusal Reason SARS-CoV-2 mRNA (mzuecelycxc-trhf-xkp) 1 08/16/21 Recorded SARS-CoV-2 (COVID-19) mRNA BNT-162b2 [...] Ordered Crestor 40 mg oral tablet Start: 02/06/23 15:13:00 EST, 1 tab, PO, Daily, Disp# 90 tab, Refills: 3, Pharmacy: [id number] Start Date: 02/06/23 Status: Ordered ferrous sulfate Start: 08/24/10 10:33:00, 325 mg =, PO, Daily, tab Start Date: 08/24/10 Status: Ordered Klor-Con M20 oral tablet, extended release Start: 01/29/23 12:00:00 EDT, 2 tab, PO, qid, Disp# 240 tab, Refills: 1, Pharmacy: [id number] Start Date: 01/29/23 Stop Date: 03/30/23 Status: Ordered multivitamin Start: 08/24/10 10:34:00, 1 tab, PO, Daily Start Date: 08/24/10 Status: Ordered Premarin 1.25 mg oral tablet Start: 01/09/23 12:10:00 EDT, See Instructions, Disp# 90 tab, Refills: 3, Take one (1) tablet(s) daily for menopausals ymptoms, Pharmacy: [id number] Start Date: 01/09/23 Status: Ordered Vitamin B2 Start: 12/28/22 9:08:00 EDT Start Date: 12/28/22 Status: Ordered Mental Status 02/06/23 Barriers to Learning one year None evide nt Mandatory Health Literacy Documentation Yes Health Literacy Communication Barriers N ever Primary Language Irish Problem List Condition Confirmation Course Effective Dates Status H ealth Status Informant Coronary arteriosclerosis Confirmed Active Difficulty swallowing Confirmed Active Hyperlipidemia Confirmed Active Hypokalemia Confirmed Active Leg wound, right Confirmed Active Diagnosis Diagnosis Type Effective Dates Health Status Cl inical Service Informant AK (actinic keratosis) Discharge Diagnosis 02/06/23 History of skin cancer Discharge Diagnosis 02/06/23 Procedures Procedure Date Related Diagnosis Body Site [...] normal limits. 9double bypass of heart 10Repaired Social History Social History Type Response Tobacco Former smoker, Cigar ettes 1 Smoking Status Never smoked cigaret sunny Sex Female 1Quit smoking 10 years ago Outpatient Note * MD Janiya, Tres Burleson: PERFORM Event Display: .Outpt Note Authored Date: [id number] OUTPATIENT NOTE Name: ARGENTINA HEATON Patient Number:1 [id number] : 1945 Date of Service: 02/06/2023 _ Ms Heaton recheck. She has a past history of squamous cell carcinoma left forearm in 2019 and SCC onthe left islam April of this year. He notes some lesions on her face. Physical examination: She is a well-developed well-nourished white female type I to type II skin. Alert and oriented x3. Examination of the face ears neck reveal erythematous hyperkeratotic macule inthe right middle eyebrow left middle eyebrow and left upper medial cheek. These are all 3 to 4 mm in diameter. She defers examination of the trunk or extremities. Impression: #1 actinic keratosis on the face. #2 no evidence for new or recurrent skin cancer on the face ears or neck. Plan: After discussing the procedure risk benefits and scarring, she gives verbal consent for cryotherapy. Cryotherapy applied to the 3 AK's in the face. She tolerated very well. Wound care instruction given. Sun protection. She will return for recheck in 6 months. Electronic Signature on File Electronically Reviewed/Signed by: Tres Denson MD Author Signature Dt/Tm:02/06/2023 12:56 PM Department of Dermatology DLS Patient Care team information Care Team Personnel Name: MD Shanika, Amol Medina Position: Physician - Internal Med Member Role: Primary Care Provider Address: Address: [address] [place] [address], [place] [address] Care Team Related Persons Name: Sabino HEATON Address: home [address] [place] [address], [place] [phone]
== END 2023-02-10 13:18 | disposition home or self-care (01) ==
LOC: 3W 12:51 → ED 12:51 → SUATTDRO 18:29 → 3W 20:06

== ENCOUNTER 2024-05-23 18:09 | Inpatient (IN) ==
[2024-05-23 18:56] LABS: Basophils # (auto) 0.03 K/uL (0.00-0.20); Basophils % (auto) 0.3 %; Eosinophils # (auto) 0.04 K/uL (0.00-0.50); Eosinophils % (auto) 0.5 %; Hematocrit (blood only) 40.3 % (37.0-47.0); Hemoglobin 13.7 g/dl (12.0-16.0); Immature Granulocytes # (auto) 0.02 K/uL (0.01-0.20); Immature Granulocytes % (auto) 0.2 %; Lymphocytes # (auto) 1.56 K/uL (1.20-3.40); Mean Corpuscular Hemoglobin 32.4 pg (25.0-34.0); Mean Corpuscular Volume 95.3 fL (80.0-100.0); Mean Platelet Volume 10.7 fL (9.4-12.4); Monocytes # (auto) 0.93 K/uL (0.11-0.59); Monocytes % (auto) 10.7 %; Neutrophils # (auto) 6.08 K/uL (1.40-6.50); Neutrophils % (auto) 70.3 %; Platelet Count 224 K/uL (130-400); RDW Coefficient of Variation 12.3 % (11.5-14.5); RDW Standard Deviation 42.4 fL (36.4-46.3); Red Blood Count 4.23 M/uL (4.20-5.40); White Blood Count 8.66 K/ul (4.8-10.8)
[2024-05-23 19:08] LABS: Albumin Globulin Ratio 1.4 (0.9-2); Albumin Level 4.2 gm/dl (3.4-5.0); BUN Creatinine Ratio 20.9 (10-20); Bilirubin,Total 0.4 mg/dl (0.2-1.0); Calcium 9.9 mg/dl (8.6-10.3); Creatinine Clr Calc Pharmacy 27.9 ml/min; Globulin 3.1 gm/dl (2.5-4.0); Potassium 3.9 mmol/L (3.5-5.1); Total Protein 7.3 gm/dl (6.0-8.3)
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
[2024-05-23] MEDS: cefTRIAXone SODIUM 2,000 MG/50 ML BAG IV STA (20:49)
[2024-05-23] MEDS: SODIUM CHLORIDE 0.9% 500 ML IV ONE (20:50)
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
[2024-05-23] MEDS: SODIUM CHLORIDE 0.9% 1,000 ML IV ONE (21:51)
[2024-05-23] MEDS ORDERED: ACETAMINOPHEN 325 MG TAB PO PRN (21:51)
[2024-05-23] MEDS ORDERED: POLYETHYLENE (MIRALAX) 17 GM PACK PO PRN (22:36)
[2024-05-23] MEDS ORDERED: ONDANSETRON INJ 2 MG/ML 2 ML VIAL IV PRN (22:36)
[2024-05-23] MEDS ORDERED: MELATONIN 3 MG TAB PO PRN (22:36)
[2024-05-23] MEDS: DAPTOmycin 200 MG in SYRINGE 0 ML IV SCH (23:06)
--- OUTSIDE RECORDS SUMMARY | 2024-05-23 23:48 | External Medical Summary | Summary of Care ---
Author Name Unknown Organization [facility] Address [address] [place] [address] Phone [phone] Care Team Providers Care Qa Test Analyst Name Role Phone Ta Voss MD Primary Care Provider + Reason for Visit * Reason Comments Follow Up Encounter Details Date Type Department Care Team (Late st Contact Info) Description 05/22/2024 8:00 AM EST Office Visit Cardiology, [facility] [address] [place] [id number] Dee Goddard PA-C [address] [facility] [place] [phone] Coronary artery disease involving osage coronary artery of osage heart without angina pectoris*; Dyslipidemia, goal LDL below 70 Allergies No known active allergiesdocumented as of this encounter (statuses as of 05/22/2024) Medications CALCIUM + D 600-200 MG-UNIT PO TABS two daily Active DAILY VITAMINS PO TABS daily Active ASPIRIN EC 81 MG PO TBECIndications :Aortocoronary bypass status 1 TABLET DAILY 90 Tab 99 07/21/19 12 Active Additional Information Patient taking differently:Oral,Every other day, Reported on 05/22/2024 CRESTOR 40 MG PO TABS Take by mouth. Takes in the evening Active PREMARIN 1.25 MG PO TABS 1 daily Active Ferrous Sulfate (IRON) 325 (65 Fe) MG TABS 1 Tablet in the morning. Active Biotin 1000 MCG Tablet Take 1 Tablet by mouth in the morning. Active Vitamin D 25 MCG (1000 UT) Oral Tablet Take by mouth. Act johan Vitamin B Complex Oral Tablet Take 1 Tablet by mouth in the morning. Active Probiotic Acidophilus BioBeads Oral Capsule Take by mouth 1 Capsule in the morning. Active Potassium Chloride ER 20 MEQ Oral Tablet Extended Release Take 4 Tablets by mouth in the morning and 4 Tablets before bedtime. Active Chlorthalidone 25 MG Oral Tablet (Hygroton)Indic ations:Aortocor onary bypass status TAKE ONE TABLET BY MOUTH EVERY MORNING 90 Tablet 3 04/22/19 25 Active Furosemide 40 MG Oral Tablet (Lasix)Indicati ons:Coronary artery disease involving osage coronary artery of osage heart without angina pectoris Take 1 Tablet by mouth in the morning. 90 Tablet 3 05/22/19 25 Active Ibuprofen 200 MG Oral Tablet (Motrin IB) Take 1 Tablet by mouth every 4 hours as needed. 025 Discontinued Furosemide 40 MG Oral Tablet (Lasix)Indicati ons:Coronary artery disease involving osage coronary artery of osage heart without angina pectoris Take 1 Tablet by mouth in the morning. 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 SUMMARY: Goal: Establish test [...] contact study staff at ; after hours Rn Palliative Care via the [facility] [place] hospital chief operator . Please contact study team before resolving/deleting from patients problem list. Study phone number: [phone]. Diagnosis changed due to Research Module. Go to [employer] for study details. Encounter for examination fo r normal comparison and control in clinical research program 11/05/2017 12/01/2021 Overview (07/19/2020): DO NOT DELETE - [facility] Study: Project # [id number], Rn Palliative Care: Shankar Wolfe, MS, MPH. SUMMARY: Goal: Establish [...] contact study staff at ; after hours Rn Palliative Care via the [facility] chief operator . - Please contact study team before resolving/deleting from patients problem list. Study phone number: [phone]. Diagnosis changed due to Research Module. Go to Jennifer for study details. documented as of this encounter (statuses as of 05/22/2024) Immunizations Name Administration Dates Next Due COVID-19 mRNA, LNP-s, No Pre serve, 2-Dose Series (Lvmae) 12/29/2020,05/29/2020,05/08/2020 COVID-19, LNP-s, No Preserve , Delfino-sucrose, Ages 12+ (Pfizer) 08/16/2021 Seasonal Influenza, Quadriva lent Hd (Fluzone Hd) 03/20/2022 TD - Tetanus/Diptheria (ADULT) 05/23/2016 Varicella Zoster Vaccine (Adult) 05/20/2014 Zoster Vaccine Recombinant (Shingrix) 03/15/2018 ,09/20/2017 documented as of this encounter Social History Tobacco Use Types Packs/Day Years Used Date Smoking Tobacco: Former Cigarettes 1 42 0 07/21/1963 - 07/20/2005 Smokeless Tobacco: Never Alcohol Use Standard Drinks/Week Comments Yes 0 (1 standard drink = 0.6 oz pur e alcohol) rare Comments No Sex and Gender Information Value Date Recorded Sex Assigned at Not on file Legal Sex Female 6:01 AM EST Gender Identity Not on file Sexual Orientation Not on file documented as of this encounter Last Filed Vital Signs Vital Sign Reading Time Taken Comments Blood Pressure 100/58 05/22/2024 8:12 AM EST Pulse 68 05/22/2024 8:12 AM EST Temperature - - Respiratory Rate 16 05/22/2024 8:12 AM EST Oxygen Saturation - - Inhaled Oxygen Concentration - - Weight 49.2 kg (108 lb 8 oz) 05/22/2024 8:12 AM EST Height - - Body Mass Index 21.19 08/21/2022 9:36 AM EDT documented in this encounter Progress Notes * Dee Goddard PA-C - 05/22/2024 7:59 AM EST 05/22/2024 Cardiology Follow Up Past Medical History: 1. Coronary artery disease s/p CABG (LEE to LAD and vein graft to the posterolateral branch along with vein graft to the circumflex) in 2006 2. Postoperative heparin-induced thrombocytopenia 3. History of left cephalic vein thrombosis postoperatively 4. Iron-deficiency anemia 5. Dyslipidemia 6. HFpEF 7. Recurrent lower extremity DVTs HPI: Mary Carmen Heaton is a 78 year old female who presents for cardiology follow up. Presents today feeling well. No acute cardiac complaints. Has chronic mild edema left leg> rightleg. Sees wound care at [facility] for RLE wound. Denies chest pain, palpitations, shortness of breath, PND, orthopnea, lightheadedness, syncope. Compliant with all medications. No recent change in activity tolerance. REVIEW OF SYSTEMS: See HPI for pertinent positives. All others negative other than those noted in the HPI. CONSTITUTIONAL: No change in weight, No weakness, No fatigue and No fevers, No sweats or chills. PULMONARY: No cough, sputum, or hemoptysis, No wheezing, No shortness of breath and No recent change in breathing. CARDIOVASCULAR: No chest pain, No dyspnea on exertion, + edema, No palpitations and No syncope. GASTROINTESTINAL: No abdominal pain, No change in bowel habits, No significant heartburn, No nausea, No vomiting, No diarrhea, No constipation, No blood in stools or black tarry stools. No dysphagia. HEMATOLOGIC: No abnormal bleeding and No bruising. NEUROLOGICAL: Normal balance, No headaches and No weakness. Review of patient's allergies indicates: No Known Allergies Current Outpatient Medications Medication Sig Dispense Refill CALCIUM + D 600-200 MG-UNIT PO TABS two daily DAILY VITAMINS PO TABS daily ASPIRIN EC 81 MG PO TBEC 1 TABLET DAILY (Patient taking differently: Take by mouth. Every other day) 90 Tab 99 CRESTOR 40 MG PO TABS Take by mouth. Takes in the evening PREMARIN 1.25 MG PO TABS 1 daily Ferrous Sulfate (IRON) 325 (65 Fe) MG TABS 1 Tablet in the morning. Biotin 1000 MCG Tablet Take 1 Tablet by mouth in the morning. Vitamin D 25 MCG (1000 UT) Oral Tablet Take by mouth. Vitamin B Complex Oral Tablet Take 1 Tablet by mouth in the morning. Probiotic Acidophilus BioBeads Oral Capsule Take by mouth 1 Capsule in the morning. Potassium Chloride ER 20 MEQ Oral Tablet Extended Release Take 4 Tablets by mouth in the morning and 4 Tablets before bedtime. Ibuprofen 200 MG Oral Tablet (Motrin IB) Take 1 Tablet by mouth every 4 hours as needed. Furosemide 40 MG Oral Tablet (Lasix) Take 1 Tablet by mouth in the morning. 90 Tablet 0 Chlorthalidone 25 MG Oral Tablet (Hygroton) TAKE ONE TABLET BY MOUTH EVERY MORNING 90 Tablet 3 No current facility-administered medications for this visit. Past Medical History: Diagnosis Date Coronary arteriosclerosis Dysphagia Edema Hyperlipidemia Hypokalemia Neoplasm of uncertain behavior Osteoporosis Family History Problem Relation Name Age of Onset Heart attack Father Heart attack Sister Social History Socioeconomic History Marital status: Tobacco Use Smoking status: Former Current packs/day: 0.00 Average packs/day: 1 pack/day for 42.0 years (42.0 ttl pk-yrs) Types: Cigarettes Start date: 07/21/1963 Quit date: 07/20/2005 Years since quittin.8 Smokeless tobacco: Never Vaping Use Vaping status: Never Used Substance and Sexual Activity Alcohol use: Yes Comment: rare Drug use: No Social Needs Social Connections OBJECTIVE/PHYSICAL EXAMINATION: BP 100/58 (BP Site: Left Arm, BP Position: Sitting) | Pulse 68 | Resp 16 | Wt 49.2 kg (108 lb 8 oz)| BMI 21.19 kg/m | BSA 1.44 m Wt Readings from Last 3 Encounters: 05/22/24 49.2 kg (108 lb 8 oz) 03/02/23 51.8 kg (114 lb 4 oz) 08/21/22 52.2 kg (115 lb) General: No acute distress. A+Ox3. HEENT: Normocephalic. Atraumatic. PERRL. EOMI. Conjunctiva and sclera clear. NECK: No carotid bruits. No JVD. Carotid upstrokes are brisk. Heart: RRR. S1 and S2 noted. No murmur. No rubs or gallops. PMI non displaced. Lungs: Clear to auscultation. No wheezes. No rhonchi. No rales. Abdomen: Normal bowel sounds. Soft. Nontender. No masses or organomegaly. No abdominal bruits. Extremities: +1 LLE edema. No clubbing or cyanosis. Pulses: radial=2/4, posterior tibial=2/4, dorsalis pedis = 2/4. NEURO: No focal deficits. PSYCH: Appropriate affect and insight. DATA Labs & Imaging Reviewed Below: EKG 05/22/24 NSR, 73 bpm, septal infarct EKG 03/02/23 Normal sinus rhythm, 81 bpm, possible anterolateral infarct Echo 07/29/20 The qualitative LV ejection fraction is 60-64% (normal). The left atrium is mildly enlarged (35-41 ml/m^2). The left ventricular diastolic function is mildly abnormal (grade I). Mild aortic valve regurgitation is present. Mild mitral regurgitation is present. Compared to prior study of 05/02/2018, there is no significant change. ASSESSMENT/PLAN: 78 year old female 1. Coronary artery disease involving osage coronary artery of osage heart without angina pectoris - stable, no anginal symptoms, euvolemic on exam - continue aspirin 81 mg daily - continue furosemide 40 mg daily - blood pressure controlled, continue chlorthalidone 25 mg daily 2. Dyslipidemia, goal LDL below 70 - labs done by PCP, will request copy - continue rosuvastatin 40 mg daily DISPOSITION: Follow up 1 year or sooner if symptoms worsen/fail to improve. All questions were answered to the patients satisfaction. Patient advised to report to ED with any and all emergencies. The patient agrees to the above plan and will call with additional questions or concerns. Dee Goddard PA-C Cardiology, [address] [place] [id number] I spent a total of 35 minutes on the date of service in preparation, delivery, and documentation ofthe care provided to Mary Carmen Heaton excluding any time spent in the performance of separately billedservices. This chart was completed in part utilizing [employer] Speech Voice Recognition Software. Grammatical errors, random word insertions, pronoun errors, and incomplete sentences are an occasional consequence of this system due to software limitations, ambient noise, and hardware issues. Any formal questions or concerns about the content, text, or information contained within the body of this dictation should be directly addressed to the provider for clarification. documented in this encounter Nursing Notes * Luz Elena Kitchen [facility] - 05/22/2024 8:12 AM EST Examination Room: 7 Name: Mary Carmen Heaton Date of : (1945). Reason for Visit: follow up Interim Hospitalization(s): [facility] - approx 10 days ago -- injury to leg Problems/Concerns: denies Chest Pain/SOB: denies [facility] Discussed: Not applicable [facility] is a way you can talk to your provider online through e-mail. Would you like to sign up? I can activate it for you? ALREADY ACTIVE Patient was instructed to not get up on the exam table until directed and assisted by their provider; patient is to remain seated in the chair/ wheelchair/ exam table for fall prevention and safety reasons. Patient is aware to have assistance to step down off exam table with personnel. Patient voiced full comprehension of instructions. documented in this encounter Plan of Treatment Upcoming Encounters Date Type Department Care Team (Late st Contact Info) Description 06/09/2025 8:00 AM EDT Office Visit Cardiology, [facility] [address] [facility] [place] [address] Dee Goddard PA-C [address] [place] [address] [place] [id number] Scheduled Orders Name Type Priority Associated Diagnoses Orde r Schedule EKG EKG Routine Coronary artery disease involving osage coronary artery of osage heart without angina pectoris Ordered: 05/22/2024 Health Maintenance Due Date Last Done Comments Depression Screening 1957 Hepatitis C Screening 1963 Pneumococcal Vaccine: 50+ Years (1 of 1 - PCV) 1996 DTap/Tdap Vaccines (1 - Tdap) 05/24/2016 05/23/2016, 05/23/2016 COVID-19 Vaccine ( season) 2023 08/16/2021, 12/29/2020, 05/29/2020, Additional history exists DXA Scan 06/12/2029 06/12/2022, 12/31, 04/12/2010 Fecal Occult Blood Test Discontinued 01/27/2006 Colonoscopy Discontinued 07/14/2009, 02/14/2006 Colorectal Cancer Screening Discontinued Zoster Vaccines Completed 03/15/2018, 09/01, 05/20/2014 Influenza Vaccine (FLU shot) Completed 01/03/2024, 03/20/2022, 12/09/2019 Cologuard Discontinued HPV (Gardasil) Vaccine Aged Out No lo nger eligible based on patient's age to complete this topic Hepatitis B Vaccine Aged Out No longe r eligible based on patient's age to complete this topic MENINGOCOCCAL (MENACTRA/MENVEO) Aged Out No longer eligible based on patient's age to complete this topic Meningitis B Vaccine (Bexsero/Trumemba) Aged Out No longer eligible based on patient's age to complete this topic Sigmoidoscopy Discontinued documented as of this encounter Medical Devices Implanted Type Area Wind Turbine Erector Device Identifier Shelf Expiration Date Model / Serial / Lot Mx60 Lens Implanted:Qty: 1 on 05/08/2017 by Toro Schultz MD at OR [facility] Left: Eye 10/30/2018 MX60 / [id number] / Lens 13.0 Mx60 - [id number] - [id number] Implanted:Qty: 1 on 05/15/2017 by Toro Schultz MD at OR [facility] Right: Eye [employer] : SURGICAL 01/30/2018 MX60-13.0 / [id number] / documented as of this encounter Visit Diagnoses Diagnosis Coronary artery disease involving osage coronary artery of osage heart without angina pectoris- Primary Dyslipidemia, goal LDL below 70 Other and unspecified hyperlipidemia documented in this encounter Advance Directives * Full Code (Latest Code Status on File) Date Activated Date Inactivated Comments 05/15/2017 6:36 AM 05/15/2017 1:33 PM This order r eflects the patients wishes and were consensually agreed upon. * Full Code Date Activated Date Inactivated Comments 05/08/2017 8:16 AM 05/08/2017 1:57 PM This order ref lects the patients wishes and were consensually agreed upon. Care Teams Qa Test Analyst Relationship Specialty Start Date End Date Ta Voss MD [address] [place] [id number] PCP - General Sports Medicine 08/23/22 documented as of this encounter"
[2024-05-24] MEDS: AMPICILLIN/SULBACTAM SOD 3,000 MG/100 ML BAG IV SCH (00:12)
[2024-05-24] MEDS: ACETAMINOPHEN 325 MG TAB PO PRN (03:29)
[2024-05-24] MEDS: ENOXAPARIN INJ 30 MG/0.3 ML SYR SQ SCH (06:10)
[2024-05-24 07:11] LABS: BUN Creatinine Ratio 21.5 (10-20); Calcium 8.9 mg/dl (8.6-10.3); Creatinine Clr Calc Pharmacy 34.5 ml/min; Potassium 3.7 mmol/L (3.5-5.1)
[2024-05-24] MEDS: ESTROGENS, CONJUGATED 0.625 MG TAB PO SCH (08:10)
[2024-05-24] MEDS: ASPIRIN 81 MG ECTAB PO SCH (08:10)
[2024-05-24] MEDS: FINASTERIDE 5 MG TAB PO SCH (08:10)
[2024-05-24] MEDS: POTASSIUM CHLORIDE CRTAB 20 MEQ TABCR PO SCH (08:10)
[2024-05-24] MEDS: CHLORTHALIDONE 25 MG TAB PO SCH (08:10)
[2024-05-24] MEDS: FUROSEMIDE 40 MG TAB PO SCH (08:11)
--- NOTE | 2024-05-24 08:56 | Hospitalist Progress Note ---
Date of Service May 24, 2024 Assessment & Plan (1) Cellulitis of left lower leg: Plan 78-year-old female PMHx significant for HTN, DVT (in 2018), HLD, chronic venous insufficiency presented for ongoing/worsening cellulitis Initially evaluated on 05/12 for LLE wound after hitting her leg with luggage which resulted in a wound/blistering and was discharged on initially Keflex and doxycycline but then was adjusted to Augmentin by pharmacy and completed course PO. Blood cx from that time NGTD x 5 days. Venous doppler at that time NEGATIVE for DVT. Patient was to follow-up with wound care clinic following her discharge from ED on 05/12/2024 but no note in system ED evaluation reveals no leukocytosis, normal H&H, CMP grossly WNL with exception of BUN 24, BUN/creatinine 20.9, CRP pending (?not ordered). Given Ceftriaxone and 1.5LNSS in ER #LLE cellulitis/nonhealing ulceration/chronic venous insufficiency Currently w/ ongoing edema/erythema and increased pain, dome drainage w/ yellow in color (no calf tenderness) anterior lesion NOT IMPROVED 05/24 Was placed on Dapto/Unasyn on admission however review of cx from drainage from her LLE 05/12 noted ecoli, Peptostreptococcus and bacteroides fragilis species. R esistance to FLQ, AND Ampicillin, gentamicin, (intermediate to Unasyn) Discussed w/ supervising provider and pharmacy given such/concerns adjusting abx for better coverage --> ABX change to Ancef (should cover the ecoli and strep per sensitivities)/Flagyl for bacteroides species. Angio LLE pending given poor healing. Monitor for any worsening/need for repeat cx but will continue current plan Edema: Lasix/chlorthalidone once daily continued, elevation as able. Monitor for additional diuretics if needed Prior Venous Doppler 05/12 negative for DVT but was traveling and will continue to monitor. Lovenox SQ once daily for DVT proph in meantime PT/OT consults placed, WBAT for now Monitor labs/exam in AM #HLD Rosuvastatin held given dapto IV on admission but given transition to Ancef will plan to resume in AM Angio pending as above Dispo: continued inpatient stay, abx adjusted as above and monitor response. Consideration for ID consult if needed given prior cxs (no hx MRSA). Anticipate at least 48hour IV abx therapy prior to transitoin to PO to complete course.Wound consult pending. PT/OT consults placed Admission and Anticipated Discharge Date Admission Date: May 23, 2024 Supervising Physician Co-Signing Physician Notes The patient was not seen by me. The chart was reviewed. Case discussed with [place]. Agree with assessment and plan Subjective Eval this morning, ambulating in room, reports walking sometimes makes it better. CT pending. Not much improvement in pain/cellulitis. Discussed prior cx and adjustment in abx and rec at least 48hr IV prior to transition to PO, hopeful dc on Sunday. Did have infection to right leg in past, multiple vein procedures done in past w/ chronic poor healing/thin skin and discussed if any issues w/ reponse will touch base w/ ID in AM. No CP/SOB, abdominal pain, nausea/vomiting. Discussed to alert for any significant diarrhea w/ continued abx. Physical Exam 2 Physical Exam: General: 78you female walking in room, ongoing discomfort to LLE but no acute distress Head atraumatic, normocephalic Resp: even/unlabored, on room air CV: RRR, no significant m/r/g, slight edema w/ cellulitis to LLE but no pitting edema GI;+BS, soft/nt no bojorquez MSK/Neuro/ext/skin: not confused, no slurred speech/facial droop LLE with cellulitis to mid courtney, dressing in place to anterior lesion w/ scant drainage, ?slight hematoma to medial lower aspect of initial injury scattered ecchymosis, varicose veins Psych: AOx3, cooperative with exam Results & Data Results & Data Vital Signs (Past 12 Hours) Vital Signs Temp Pulse Pulse Resp BP BP Pulse Ox 05/23/24 22:25 36.3 C L 76 16 138/72 98 05/23/24 22:25 36.3 C L 76 16 138/72 98 05/23/24 22:01 83 18 123/71 99 05/23/24 21:26 69 15 123/71 99 O2 Del Method 05/23/24 22:25 Room Air 05/23/24 22:25 Room Air 05/23/24 22:01 05/23/24 21:26 Laboratory Results 05/23/24 18:36 05/24/24 06:16 PG Care Time/CCT Total # of Minutes Spent Total Time Spent with Patient: Total time spent is greater than 50% in coordination of care (as documented) at patient's floor/unit and/or counseling patient: Coding Level of Care Code 61538 SUB INP/OBS CARE 3/50MIN Diagnoses Cellulitis of left lower leg L03.116
[2024-05-24] MEDS ORDERED: ceFAZolin 1000MG 1,000 MG/7.5 ML SYR IV SCH (09:30)
[2024-05-24] MEDS: ceFAZolin 2000MG 2,000 MG/15 ML SYR IV SCH (10:39)
[2024-05-24] MEDS: metroNIDAZOLE 500 MG/100 ML BAG IV SCH (10:39)
[2024-05-24 12:26] LABS: C Reactive Protein 0.67 mg/dl (0-0.5)
[2024-05-25 06:19] LABS: Hematocrit (blood only) 34.3 % (37.0-47.0); Hemoglobin 11.8 g/dl (12.0-16.0); Mean Corpuscular Hemoglobin 32.9 pg (25.0-34.0); Mean Corpuscular Hgb Conc 34.4 g/dL (32.0-36.0); Mean Corpuscular Volume 95.5 fL (80.0-100.0); Mean Platelet Volume 10.9 fL (9.4-12.4); Platelet Count 172 K/uL (130-400); RDW Coefficient of Variation 12.1 % (11.5-14.5); RDW Standard Deviation 42.5 fL (36.4-46.3); Red Blood Count 3.59 M/uL (4.20-5.40); White Blood Count 6.19 K/ul (4.8-10.8)
[2024-05-25 06:36] LABS: BUN Creatinine Ratio 24.7 (10-20); Calcium 8.7 mg/dl (8.6-10.3); Creatinine Clr Calc Pharmacy 39.7 ml/min; Magnesium 2.1 mg/dl (1.7-2.4); Potassium 3.3 mmol/L (3.5-5.1)
--- NOTE | 2024-05-25 08:33 | Hospitalist Progress Note ---
Date of Service May 25, 2024 Assessment & Plan (1) Cellulitis of left lower leg: Plan: 78-year-old female PMHx significant for HTN, DVT (in 2018), HLD, chronic venous insufficiency presented for ongoing/worsening cellulitis Initially evaluated on 05/12 for LLE wound after hitting her leg with luggage which resulted in a wound/blistering and was discharged on initially Keflex and doxycycline but then was adjusted to Augmentin by pharmacy and completed course PO. Blood cx from that time NGTD x 5 days. Venous doppler at that time NEGATIVE for DVT. Patient was to follow-up with wound care clinic following her discharge from ED on 05/12/2024 but no note in system ED evaluation reveals no leukocytosis, normal H&H, CMP grossly WNL with exception of BUN 24, BUN/creatinine 20.9, CRP pending (?not ordered). Given Ceftriaxone and 1.5LNSS in ER #LLE cellulitis/nonhealing ulceration/chronic venous insufficiency Currently w/ ongoing edema/erythema and increased pain, some drainage w/ yellow in color (no calf tenderness) anterior lesion. Was placed on Dapto/Unasyn on admission however review of cx from drainage from her LLE 05/12 noted ecoli, Peptostreptococcus and bacteroides fragilis species. R esistance to FLQ, AND Ampicillin, gentamicin, (intermediate to Unasyn) and was NOT IMPROVING 05/24 -SWITCHED ABX given not improving 05/24 to ANCEF (ecoli/strep), FLAGYL (bacteroides species) WBC wnl, afebrile Improvement in cellulitis/erythema on exam but ongoing /increased edema/pain and decision for repeat venous doppler gand CT LLE for further eval/possible fluid collection w/ anearobes on prior. RN to obtain repeat cx from drainage to ensure not w/ any new resistance given prior staph req Vanco/Linezolid last year. Venous doppler NEGATIVE for DVT CT LLE w/ Moderate to severe progressively increasing cellulitis from the proximal tibia to the foot. No drainable abscess. No evidence for osteo. HIGH GRADE stenosis left popliteal artery posterior to the knee without occlusion. There is atherosclerosis at the origin of the left anterior tibial artery without occlusion. Followed with Dr Bray in the past, messaged and consult placed and he will see in AM. Suspect given no acute occlusion likely outpatient follow up and eventual intervention but will await formal consult, appreciate recs/assistance Pain control, elevation encouraged. Only had tylenol PO, added oxycodone 5mg prn as needed. Diuretics continued to assist with swelling/edema HOWEVER note below, start spironolactone 12.5mg today and increase/adjust as needed Monitor exam/labs in AM (2) Hypokalemia: Plan: chronic issue, but NOTABLE TAKES LARGE AMOUNT OF SUPPLEMENTAL POTASSIUM -- 40meq FOUR TIMES DAILY. Review home meds and confirmed w/ patient taking BOTH lasix 40mg daily and Chlorthialidone 25mg daily and suspect culprit. Continued chlorthalidone 25mg daily for this morning but placed lasix on hold for now. Remains on PO Kcl supplementation but started low dose aldactone 12.5mg to assist with edema/swelling for now but repeating BMP this afternoon to ensure stable and consider holding additional Kcl if remains stable and adjust continued replacement w/ AM BMP Review of prior labs w/ chronic lows and again suspect combination NOT best for this patient and would benefit from increasing potassium sparing diuretic to prevent ongoing issues and cut back on PO supplementation as able Review w/ provider in [facility] w/ lasix NOT on PCP home med list but has been sent by her pay station attendant (kevyn) however patient does report having gone over this with PCP during recent visit. Will ask CM navigator to assist in touching base w/ PCP in AM to clarify but again rec spironolatone and stop one of the others BMP in AM (3) H/O: HTN (hypertension): Plan: Appears patient on lasix and chlorthalidone at baseline both for BP?? Chronic issues with hypokalemia, takes potassium 40meq FOUR TIME DAILY as above and likely will plan to discontinue one of these agents at discharge BP stable/borderline and NOT elevated and she primary uses for edema/swelling complaints. Continue chlorthalidone 25mg daily HOLD LASIX 40mg Start aldatone 12.5mg/monitor labs and BP on repeat. Adj meds at discharge as req #HLD Rosuvastatin held given dapto IV on admission but given transition to Ancef and CK this morning NOT elevated at 18, resumed crestor 40mg HS for this evening. Stenosis as above/vascular consult pending (4) Vitamin D toxicity: Plan: VITAMIN D >120. On 25mcg po daily, calcium carbonate BID. WOULD HOLD THESE AT DC and have not been ordered while inpatient Plan Dispo: continued inpatient stay on Ancef/Flagyl. Repeat cx to be obtained to ensure no development of resistance. Vascular consult placed and will be seen in AM. Hopeful dc next 24-48hrs pending repeat evals Admission and Anticipated Discharge Date Admission Date: May 23, 2024 Supervising Physician Co-Signing Physician Notes The patient was not seen by me. The chart was reviewed. Case discussed with DEMAR Londono. Agree with assessment and plan Subjective Eval this morning, sitting up in chair, cellulitis improving but edema/swelling persists. Discussed will obtain CT LLE to eval fluid collection/hematoma but continue current abx. Discussed her PO potassium replacement -- she does endorse takes 40meq QID. On lasix and chlorthalidone but does know her heart dr sends the lasix but her PCP for chlorthalidone. Will need to touch base w her PCP in AM to ensure known (she does report they went over her medications recently however, but discussed I reached out and appeared did not have lasix on med list but can see in pharmacy). Not thrilled about repeat labs but started low dose spironolactone and wanting to avoid over treatment/hyperkalemia. Discussed possible dc next 24-48 hours but she is concerned about infection and will monitor w/ imaging/response to treatment. Repeat cx from drainage discussed w/ nursing as able to obtain. Wound RN consult pending, to see in AM. Does have some numbness/tingling at times, elevation to be encouraged by nursing. Questions/concerns addressed at this time. Physical Exam 2 Physical Exam: General: 78you female sitting in in chair, cellulitis/redness improving but continued significant edema/possible fluid collection/hematoma vs other medial/posterior aspect- discussed obtaining imaging for eval Head atraumatic, normocephalic Resp: even/unlabored, on room air CV: RRR, no significant m/r/g, slight increased edema to lower extremity (not spreading down further to foot region), pulses present but diminished, NVI, no significant calf tenderness GI: +BS, soft/NT no bojorquez MSK/Neuro: nonfocal, not confused and answering questions appropriately improvement in redness but ongoing edema/tenderness, pulses present but slight increased drainage from anterior lesion/dressing w/ shadowing (RN to obtain cx) Psych: AOx3, cooperative with exam Results & Data Results & Data Vital Signs (Past 12 Hours) Vital Signs Temp Pulse Resp BP Pulse Ox O2 Del Method 05/25/24 07:13 36.4 C L 70 18 101/61 97 Room Air Laboratory Results 05/25/24 05:35 05/25/24 05:35 Mag 2.1 CK 18 Vit D >120 Renin/Marin pending Diagnostic Findings Lower Extremity CT 05/25/24 09:53 EXAM: CT Left Lower Extremity Without and With Intravenous Contrast Tibia and Fibula INDICATION: Trauma. Cellulitis. TECHNIQUE: Axial computed tomography images of the left tibia and fibula without and with intravenous contrast. Sagittal and coronal reformatted images were created and reviewed. This CT exam was performed using one or more of the following dose reduction techniques: automated exposure control, adjustment of the mA and/or kV according to patient size, and/or use of iterative reconstruction technique. CONTRAST: 93ml of Optiray 320 was administered intravenously. COMPARISON: No relevant prior studies available. FINDINGS: Bones/joints: No acute changes. Soft tissues: There is a small knee joint effusion. There is circumferential cellulitis beginning at the level of the proximal tibial shaft progressively increasing with development of areas of associated lateral subcutaneous fluid superficial fascial thickening. There is progressively increasing cutaneous thickening extending toward the foot. There is no organized fluid collection. No subcutaneous gas. Vasculature: There is dense atherosclerosis in the popliteal artery with high-grade stenosis. No occlusion as the tibioperoneal trunk reconstitutes without filling defect. There is dense atherosclerosis at the origin of the anterior tibial artery which is otherwise patent. No aneurysm or dissection. IMPRESSION: 1. Moderate to severe progressively increasing cellulitis from the proximal tibia to the foot. No drainable abscess. 2. No evidence of osteomyelitis. 3. High-grade stenosis left popliteal artery posterior to the knee without occlusion. There is atherosclerosis at the origin of the left anterior tibial artery without occlusion. ACT 112: Negative or not required by law. Electronically signed by Aziza Mccurdy 05-25-2024 10:59 AM Venous Doppler Study 05/25/24 10:00 EXAM: US Duplex Left Lower Extremity Veins INDICATION: Wound. TECHNIQUE: Real-time duplex ultrasound scan of the left lower extremity veins integrating B-mode two-dimensional vascular structure, Doppler spectral analysis, color flow Doppler imaging and compression. COMPARISON: No relevant prior studies available. FINDINGS: Deep veins: No DVT in the visualized common femoral, femoral or popliteal veins. The veins demonstrate normal color flow, are normally compressible, with normal phasic flow and/or augmentation response. Superficial veins: No abnormality noted. No thrombus in the visualized great saphenous vein. Soft tissues: No abnormality noted. IMPRESSION: No deep venous thrombosis of the left lower extremity. ACT 112: Negative or not required by law. Electronically signed by Aziza Mccurdy 05-25-2024 10:54 AM PG Care Time/CCT Total # of Minutes Spent Total Time Spent with Patient: Total time spent is greater than 50% in coordination of care (as documented) at patient's floor/unit and/or counseling patient: Coding Level of Care Code 47671 SUB INP/OBS CARE 3/50MIN Diagnoses Cellulitis of left lower leg L03.116 Hypokalemia E87.6 H/O: HTN (hypertension) Z86.79 Vitamin D toxicity T45.2X1A
[2024-05-25] MEDS: POTASSIUM CHLORIDE CRTAB 20 MEQ TABCR PO STA (09:11)
[2024-05-25] MEDS: SPIRONOLACTONE 12.5 MG TAB PO SCH (09:33)
[2024-05-25] MEDS: OPTIRAY 320 100ml IV ONE (10:25)
--- NOTE | 2024-05-25 10:54 | Ultrasound Report ---
EXAM: US Duplex Left Lower Extremity Veins INDICATION: Wound. TECHNIQUE: Real-time duplex ultrasound scan of the left lower extremity veins integrating B-mode two-dimensional vascular structure, Doppler spectral analysis, color flow Doppler imaging and compression. COMPARISON: No relevant prior studies available. FINDINGS: Deep veins: No DVT in the visualized common femoral, femoral or popliteal veins. The veins demonstrate normal color flow, are normally compressible, with normal phasic flow and/or augmentation response. Superficial veins: No abnormality noted. No thrombus in the visualized great saphenous vein. Soft tissues: No abnormality noted. IMPRESSION: No deep venous thrombosis of the left lower extremity. ACT 112: Negative or not required by law. Electronically signed by Aziza Mccurdy 05-25-2024 10:54 AM
--- NOTE | 2024-05-25 10:59 | CT Scan Report ---
EXAM: CT Left Lower Extremity Without and With Intravenous Contrast Tibia and Fibula INDICATION: Trauma. Cellulitis. TECHNIQUE: Axial computed tomography images of the left tibia and fibula without and with intravenous contrast. Sagittal and coronal reformatted images were created and reviewed. This CT exam was performed using one or more of the following dose reduction techniques: automated exposure control, adjustment of the mA and/or kV according to patient size, and/or use of iterative reconstruction technique. CONTRAST: 93ml of Optiray 320 was administered intravenously. COMPARISON: No relevant prior studies available. FINDINGS: Bones/joints: No acute changes. Soft tissues: There is a small knee joint effusion. There is circumferential cellulitis beginning at the level of the proximal tibial shaft progressively increasing with development of areas of associated lateral subcutaneous fluid superficial fascial thickening. There is progressively increasing cutaneous thickening extending toward the foot. There is no organized fluid collection. No subcutaneous gas. Vasculature: There is dense atherosclerosis in the popliteal artery with high-grade stenosis. No occlusion as the tibioperoneal trunk reconstitutes without filling defect. There is dense atherosclerosis at the origin of the anterior tibial artery which is otherwise patent. No aneurysm or dissection. IMPRESSION: 1. Moderate to severe progressively increasing cellulitis from the proximal tibia to the foot. No drainable abscess. 2. No evidence of osteomyelitis. 3. High-grade stenosis left popliteal artery posterior to the knee without occlusion. There is atherosclerosis at the origin of the left anterior tibial artery without occlusion. ACT 112: Negative or not required by law. Electronically signed by Aziza Mccurdy 05-25-2024 10:59 AM
[2024-05-25] MEDS: PNEUMOCOCCAL VACCINE (PCV20) 20-VAL CONJ-DIP CRM/PF 0.5 ML SYR IM ONE (11:47)
[2024-05-25] MEDS ORDERED: oxyCODONE HCL IR 5 MG TAB (IMMEDIATE RELEASE) PO PRN (12:03)
[2024-05-25 16:45] LABS: BUN Creatinine Ratio 16.7 (10-20); Calcium 8.7 mg/dl (8.6-10.3); Creatinine Clr Calc Pharmacy 25.5 ml/min; Potassium 3.5 mmol/L (3.5-5.1)
[2024-05-25] MEDS ORDERED: SOD PHOSPHATE/SOD BIPHOSPHATE ENEMA 132 ML BTL PR PRN (17:19)
[2024-05-25] MEDS ORDERED: SPIRONOLACTONE 12.5 MG TAB PO ONE (17:22)
[2024-05-25] MEDS: SPIRONOLACTONE 25 MG TAB PO ONE (18:24)
[2024-05-25] MEDS: FUROSEMIDE 40 MG TAB PO ONE (18:25)
[2024-05-25] MEDS: DOCUSATE SODIUM 100 MG CAP PO SCH (21:01)
[2024-05-25] MEDS: ROSUVASTATIN CALCIUM 20 MG TAB PO SCH (21:02)
[2024-05-26 06:23] LABS: Hematocrit (blood only) 35.2 % (37.0-47.0); Hemoglobin 12.2 g/dl (12.0-16.0); Mean Corpuscular Hgb Conc 34.7 g/dL (32.0-36.0); Mean Corpuscular Volume 95.1 fL (80.0-100.0); Mean Platelet Volume 10.7 fL (9.4-12.4); Platelet Count 168 K/uL (130-400); RDW Coefficient of Variation 12.2 % (11.5-14.5); RDW Standard Deviation 42.4 fL (36.4-46.3); White Blood Count 6.22 K/ul (4.8-10.8)
--- NOTE | 2024-05-26 08:36 | Hospitalist Progress Note ---
Date of Service May 26, 2024 Assessment & Plan (1) Cellulitis of left lower leg: Plan: 78-year-old female PMHx significant for HTN, DVT (in 2018), HLD, chronic venous insufficiency presented for ongoing/worsening cellulitis Initially evaluated on 05/12 for LLE wound after hitting her leg with luggage which resulted in a wound/blistering and was discharged on initially Keflex and doxycycline but then was adjusted to Augmentin by pharmacy and completed course PO. Blood cx from that time NGTD x 5 days. Venous Doppler at that time NEGATIVE for DVT. Patient was to follow-up with wound care clinic following her discharge from ED on 05/12/2024 but no note in system ED evaluation reveals no leukocytosis, normal H&H, CMP grossly WNL with exception of BUN 24, BUN/creatinine 20.9, CRP pending (?not ordered). Given Ceftriaxone and 1.5LNSS in ER Admission due to cellulitis failing outpt tx Doxy/Keflex with increased edema/erythema and pain with yellow drainage anterior lesion. #LLE cellulitis/nonhealing ulceration/chronic venous insufficiency Placed on Dapto/Unasyn on admission however not improving 05/24 and review ER cx 05/12 w/ ecoli, Peptostreptococcus, bacteroides fragilis species INTERMEDIATE resistance to Unasyn and switched to Ancef/Flagyl Continued redness/swelling 05/25, hx DVT and Venous Doppler/CT LLE obtained to eval deeper infection/fluid collection (however notable was having dependent and encouraged elevation as much as possible) and repeat cx Venous Doppler Negative for DVT CT LLE w/ Moderate to severe progressively increasing cellulitis from the proximal tibia to the foot. No drainable abscess. No evidence for osteo. -Notes HIGH GRADE stenosis left popliteal artery posterior to the knee without occlusion. There is atherosclerosis at the origin of the left anterior tibial artery without occlusion. -Dr Bray from vascular consulted to weigh in, suspect no acute intervention given cap refill w/o and no acute occlusion but will await input from WBC wnl/afebrile and redness does not appear worse today but continued edema and remains on diuretics Continued Ancef/Flagyl for now (ecoli/strep, bacteroides respectively). Repeat cx GNB this morning GNB, now w/ pseudomonas and discussed w/ ID as initially going to switch Ancef to Cefepime/continue Flagyl for anaerobic coverage however recs for Zosyn and will monitor final cx/sensitivities Diuretics continued w Lasix 40mg daily, Added/continue spironolactone 12.5mg daily Chlorthalidone 25mg daily on hold as below for ongoing hypokalemia and can increase spironolactone as needed. BNP checked/NOT elevated 70 Pain control, elevation encouraged. Added low dose oxy, toradol 10mg IV x 1 to assist w swelling Monitor labs/exam in AM (2) Hypokalemia: Plan: chronic issue, Renin/brandi levels pending given chronic hypokalemia however suspect 2nd to medication use w/ thiazide diuretic sas NOTABLE TAKES LARGE AMOUNT OF SUPPLEMENTAL POTASSIUM 40meq FOUR TIMES DAILY. Home meds w/ chlorthalidone 25mg daily, lasix 40mg. 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) and likely NOT best combination Held her lasix 05/25 and continued chlorthalidone but reported improvement w edema more w/ lasix and decision to continue lasix and HOLD chlorthalidone for now and lasix continued for ongoing edema and added spironolactone 05/25 and intially held her PO Kcl and repeat K 3.5 and wanted to avoid elevations but when req 40mg PO lasix PM 05/25 was resumed 05/26 K LOW 2.4, 40meq + usual 40meq this morning Continue to HOLD chlorthalidone, likely rec to STOP this medication Continue lasix 40mg PO daily for edema Continue new spironolactone 12.5mg daily, titrate as able Continue QID Kcl for today given low K this morning but reduce in AM pending repeat chemistries (3) H/O: HTN (hypertension): Plan: As above, on lasix/chlorthalidone at baseline and NO elevations in BP noted and utilized for her edema and BNP NOT elevated Given ongoing issues w/ hyopK likely should continue only the lasix as above and titrate spironolactone to effective dose for edema/toelrance and decrease PO KCl supplementation pending response. #HLD Rosuvastatin held given dapto IV on admission, resumed 05/25 and CK only 18 Vascular consult pending as above (4) Vitamin D toxicity: Plan: VITAMIN D >120. On 25mcg po daily, calcium carbonate BID. WOULD HOLD THESE AT DC and have not been ordered while inpatient Plan Dispo: continued inpatient stay, ID/abx adjustment as above and f/u final repeat cxs. Lasix/spironolactone as outlined and vascular consult pending Hopeful dc next 24-48hrs pending repeat evals/final cx on PO abx Admission and Anticipated Discharge Date Admission Date: May 23, 2024 Subjective Eval this morning, sitting up at side of the bed. Ongoing edema, improved since lasix. Chlorthalidone on hold. Still red/warm/tender but appears improved and repeat cx pending. Discussed ID consulted given prior cx but given redness does not appear worsened will hold off escalation to bactrim for prior Stenotrophomonas but will f/u repeat cx w/ GNR/adjust as needed. K replacement continued, spironolactone continued. Hopefully K improve in AM/adjustment to spironolactone as needed. Reports not yet seen by Dr Bray but inquiring if would do intervention inpatient. Discussed will have to wait for eval but given no acute occlusion and active infection likely tx infection and then outpatient f/u but will see what he says. No CP/SOB. Question/concerns addressed at this time Physical Exam 2 Physical Exam: General: 78you female sitting in bed, legs dependent (encouraged to elevated), ongoing erythema/warmth to primarily LLE anterior courtney/medial aspect (redness/edema appear improved from day prior) HEENT: atraumatic, normocephalic, mmm, trachea midline Resp: even/unlabored, on room air CV: RRR, no significant m/r/g, slight decreased edema to lower extremity (not spreading down further to foot region), pulses present but diminished, NVI, cap refill wnl GI: +BS, soft/NT no bojorquez MSK/Neuro: nonfocal, not confused and answering questions appropriately LLE cellulitis with improvement in erythema compared to day prior, remains warm/tender to palpation, +perfused, sensation intact chronic venous insufficiency ongoing/decreased drainage from anterior lesion/dressing in place (prior sent for cx 05/25) Psych: AOx3, cooperative with exam Results & Data Results & Data Vital Signs (Past 12 Hours) Vital Signs Temp Pulse Resp BP Pulse Ox O2 Del Method 05/25/24 21:19 36.8 C 73 17 103/61 97 Room Air Laboratory Results 05/26/24 05:40 05/26/24 05:40 BNP70 CRP 2.08 Diagnostic Findings Lower Extremity CT 05/25/24 09:53 EXAM: CT Left Lower Extremity Without and With Intravenous Contrast Tibia and Fibula INDICATION: Trauma. Cellulitis. TECHNIQUE: Axial computed tomography images of the left tibia and fibula without and with intravenous contrast. Sagittal and coronal reformatted images were created and reviewed. This CT exam was performed using one or more of the following dose reduction techniques: automated exposure control, adjustment of the mA and/or kV according to patient size, and/or use of iterative reconstruction technique. CONTRAST: 93ml of Optiray 320 was administered intravenously. COMPARISON: No relevant prior studies available. FINDINGS: Bones/joints: No acute changes. Soft tissues: There is a small knee joint effusion. There is circumferential cellulitis beginning at the level of the proximal tibial shaft progressively increasing with development of areas of associated lateral subcutaneous fluid superficial fascial thickening. There is progressively increasing cutaneous thickening extending toward the foot. There is no organized fluid collection. No subcutaneous gas. Vasculature: There is dense atherosclerosis in the popliteal artery with high-grade stenosis. No occlusion as the tibioperoneal trunk reconstitutes without filling defect. There is dense atherosclerosis at the origin of the anterior tibial artery which is otherwise patent. No aneurysm or dissection. IMPRESSION: 1. Moderate to severe progressively increasing cellulitis from the proximal tibia to the foot. No drainable abscess. 2. No evidence of osteomyelitis. 3. High-grade stenosis left popliteal artery posterior to the knee without occlusion. There is atherosclerosis at the origin of the left anterior tibial artery without occlusion. ACT 112: Negative or not required by law. Electronically signed by Aziza Mccurdy 05-25-2024 10:59 AM Venous Doppler Study 05/25/24 10:00 EXAM: US Duplex Left Lower Extremity Veins INDICATION: Wound. TECHNIQUE: Real-time duplex ultrasound scan of the left lower extremity veins integrating B-mode two-dimensional vascular structure, Doppler spectral analysis, color flow Doppler imaging and compression. COMPARISON: No relevant prior studies available. FINDINGS: Deep veins: No DVT in the visualized common femoral, femoral or popliteal veins. The veins demonstrate normal color flow, are normally compressible, with normal phasic flow and/or augmentation response. Superficial veins: No abnormality noted. No thrombus in the visualized great saphenous vein. Soft tissues: No abnormality noted. IMPRESSION: No deep venous thrombosis of the left lower extremity. ACT 112: Negative or not required by law. Electronically signed by Aziza Mccurdy 05-25-2024 10:54 AM PG Care Time/CCT Total # of Minutes Spent Total Time Spent with Patient: Total time spent is greater than 50% in coordination of care (as documented) at patient's floor/unit and/or counseling patient: Coding Level of Care Code 37411 SUB INP/OBS CARE 3/50MIN Diagnoses Cellulitis of left lower leg L03.116 Hypokalemia E87.6 H/O: HTN (hypertension) Z86.79 Vitamin D toxicity T45.2X1A
[2024-05-26 08:42] LABS: BUN Creatinine Ratio 18.2 (10-20); C Reactive Protein 2.08 mg/dl (0-0.5); Calcium 8.6 mg/dl (8.6-10.3); Creatinine Clr Calc Pharmacy 32.5 ml/min; Magnesium 2.1 mg/dl (1.7-2.4); Potassium 2.4 mmol/L (3.5-5.1)
[2024-05-26] MEDS: POTASSIUM CHLORIDE CRTAB 20 MEQ TABCR PO STA (09:13)
[2024-05-26] MEDS: KETOROLAC TROMETHAMINE 15 MG/ML VIAL IV ONE (10:25)
--- NOTE | 2024-05-26 12:13 | Infectious Disease Consult ---
Date of Consultation May 26, 2024 Assessment & Plan (1) Cellulitis of left lower leg: (2) Traumatic open wound of left lower leg: Plan This is a 78-year-old female with a past medical history of chronic venous insufficiency, venous stasis ulcers, who presents for left lower extremity pain and nonhealing ulcer. She was Initially evaluated in the ED on 05/12/24 for a left lower extremity wound after hitting her leg with luggage. Wound cultures on 05/12 grew E. coli, Peptostreptococcus anaerobius and Bacteroides fragilis. She completed therapy with Augmentin. While on Augmentin the left lower extremity continued to be painful with erythema. She returned to the ED on 05/23/24 for further evaluation. She denies recurrent trauma to the extremities. She denies fever, chills, sweats, nausea, vomiting. In the Ed, she is afebrile and hemodynamically stable. WBC 8.66, creatinine 1.15. Left lower extremity CT with and without contrast shows moderate to severe progressively increasing cellulitis from the proximal tibia to the foot. No drainable abscess. No o steomyelitis. There is high-grade stenosis of the left popliteal artery posterior to the knee without occlusion. LLE Doppler without DVT. She is currently on Ancef and Flagyl. Wound cultures obtained and growing Pseudomonas aeruginosa so far ID consulted for cellulitis with history of polymicrobial wound culture, failed outpatient antibiotics. Microbiology Left lower extremity wound culture 05/25/24: Moderate Pseudomonas aeruginosa (preliminary) Prior microbiology Left lower extremity wound culture05/12/24: E. coli (resistant to ampicillin, gent, Levaquin, intermediate ampicillin/sulbactam), Peptostreptococcus anaerobius, Bacteroides fragilis Left lower extremity wound 05/22/2022 Stenotrophomonas maltophilia (sensitive to Levaquin, trim/sulfa Antibiotics: Ceftriaxone 05/23 Daptomycin 05/23 Unasyn 05/23 Cefazolin 05/24ongoing Flagyl 05/24ongoing # LLE wound and cellulitis sp trauma -current wound cx with Pseudomonas growth so far ( superficial culture) -no s/o deep space infection on CT LE ( no osteo, no abscess) #History of polymicrobial wound culture on 05/12/24; Ecoli, bacteroides, peptostreptococcus - treated with amox/clav # PVD Recommendations. -Discontinue Cefazolin and Flagyl -Start Zosyn 4.5 g IV q 8 h for empiric Pseudomonas coverage. Will also cover for h/o Ecoli, bacteroides, peptostreptococcus + wound culture -Follow up Pseudomonas sensitivity to ensure zosyn sensitive. -Follow up wound culture to finalization. Discussed with team Thank you for this consult.ID will continue to follow. Juanjose Ding MD, MPH Infectious Disease [facility], [facility] Call [phone] with questions Consultation Information Consultation was provided via telemedicine using two-way real-time interactive telecommunication between the patient and the telemedicine provider. For the duration of the visit, the provider was performing the assessment from a different facility than the patient. This includesuse of bluetooth stethoscope forauscultationperformed by the telepresenter that the telemedicine provider can hear if described in the physical exam. [employer]visor [employer] contact information: Please call [facility] Call Center . (Phone Number For Physician Use Only) After establishing a telemedicine visit, patient was: Patient was verified with two unique identifiers Time Spent with Patient: Initial => 55 min History of Present Illness Reason for Consultation: LLE Cellulitis , history of polymicrobial infection, failed outpatient antibiotics Requesting Physician: DEMAR Londono Attending Physician: Socorro Hubbard MD History of Present Illness This is a 78-year-old female with a past medical history of chronic venous insufficiency, venous stasis ulcers, who presents for left lower extremity pain and nonhealing ulcer. She was Initially evaluated in the ED on 05/12/24 for a left lower extremity wound after hitting her leg with luggage. Wound cultures on 05/12 grew E. coli, Peptostreptococcus anaerobius and Bacteroides fragilis. She completed therapy with Augmentin. While on Augmentin the left lower extremity continued to be painful with erythema. She returned to the ED on 05/23/24 for further evaluation. She denies recurrent trauma to the extremities. She denies fever, chills, sweats, nausea, vomiting. In the Ed, she is afebrile and hemodynamically stable. WBC 8.66, creatinine 1.15. Left lower extremity CT with and without contrast shows moderate to severe progressively increasing cellulitis from the proximal tibia to the foot. No drainable abscess. No osteomyelitis. There is high-grade stenosis of the left popliteal artery vector control assistant ior to the knee without occlusion. LLE Doppler without DVT. She is currently on Ancef and Flagyl. Wound cultures obtained and growing Pseudomonas aeruginosa so far ID consulted for cellulitis with history of polymicrobial wound culture, failed outpatient antibiotics. Allergies Allergy/AdvReac Type Severity Reaction Status Date / Time No Known Allergies Allergy Verified 05/23/24 21:13 Home Medications Medication Instructions Recorded Confirmed Type aspirin 81 mg tablet,delayed 81 mg PO QAM 02/14/19 05/23/24 History release (Adult Low Dose Aspirin) chlorthalidone 25 mg tablet 25 mg PO QAM 02/14/19 05/23/24 History furosemide 40 mg tablet 40 mg PO QAM 02/14/19 05/23/24 History multivitamin 1 tab PO HS 02/14/19 05/23/24 History rosuvastatin 40 mg tablet (Crestor) 40 mg PO HS 02/14/19 05/23/24 History conjugated estrogens 1.25 mg 1.25 mg PO DAILY 08/31/20 05/23/24 History tablet (Premarin) cholecalciferol (vitamin D3) 25 25 mcg PO DAILY 08/29/22 05/23/24 History mcg (1,000 unit) capsule potassium chloride 20 mEq 40 meq PO QID 01/16/23 05/23/24 History tablet,extended release(part/cryst) calcium carbonate (Calcium 600) 600 mg PO BID 02/08/23 05/23/24 History finasteride 5 mg tablet 5 mg PO QAM 05/23/24 05/23/24 History Patient History Medical History Coronary artery disease Cat bite Surgical History Status post endovenous radiofrequency ablation of saphenous vein Venoseal procedure done 2020 H/O bladder repair surgery Hx of CABG H/O: hysterectomy H/O hernia repair Family History Other No significant family history Social History Smoking Status: Never smoker Second Hand Exposure: No; Do You Dip or Chew Tobacco: No; Tobacco Cessation Education Requested by Patient: No Hx Alcohol Use: No Hx Substance Use: No Preferred Language: Ukrainian Communication Ability: Effective Visual Impairment: Limited Hearing Ability: Normal 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 Spouse also able to assist as needed. Other Information That Helps Us Care for You: No Feels Safe at Home: Yes Safety Concerns: Feels Safe At This Time Diet: regular during the past year weight has: remained stable Assistive Devices: None Review of System A 10 point ROs obtained. Pertinent positives as per HPI Physical Exam Physical Exam: NAD Aniteric sclera Non labored breathing , On RA Soft , Non distended, Non tender abdomen LLE Anterior calf wound with crusted tissue. Surrounding cellulitis. Dressing removed with brownish dried fluid on dressing. + edema.Scattered scabs on LLE. BL chronic stasis changes . R ant calf with chronic wound. AAO times 3 Cooperative, normal mood Results & Data Vital Signs (Past 12 Hours) Vital Signs Temp Pulse Resp BP Pulse Ox O2 Del Method 05/26/24 09:04 36.7 C 79 18 103/65 99 Room Air Laboratory Results Laboratory Results - last 48 hr 05/25/24 05/25/24 05/26/24 05:35 16:04 05:40 WBC 6.19 6.22 RBC 3.59 L 3.70 L Hgb 11.8 L 12.2 Hct 34.3 L 35.2 L MCV 95.5 95.1 MCH 32.9 33.0 MCHC 34.4 34.7 RDW Std Deviation 42.5 42.4 RDW Coeff of Vanda 12.1 12.2 Plt Count 172 168 MPV 10.9 10.7 Sodium 139 135 L 142 Potassium 3.3 L 3.5 2.4 L* D Chloride 104 102 102 Carbon Dioxide 28 26 33 H Anion Gap 7 7 7 BUN 20 21 18 Creatinine 0.81 1.26 H D 0.99 Est Cr Clr Drug Dosing 39.7 25.5 32.5 eGFR 74.72 43.97 58.73 BUN/Creatinine Ratio 24.7 H 16.7 18.2 Glucose 86 94 86 Calcium 8.7 8.7 8.6 Magnesium 2.1 2.1 Total Creatine Kinase 18 L C-Reactive Protein 2.08 H B-Natriuretic Peptide 70 25-OH Vitamin D Total > 120.0 H Diagnostic Findings Microbiology 05/25/24 14:41 Leg,Left Gram Stain - Final 05/25/24 14:41 Leg,Left Wound Culture - Preliminary Pseudomonas aeruginosa Lower Extremity CT 05/25/24 09:53 EXAM: CT Left Lower Extremity Without and With Intravenous Contrast Tibia and Fibula INDICATION: Trauma. Cellulitis. TECHNIQUE: Axial computed tomography images of the left tibia and fibula without and with intravenous contrast. Sagittal and coronal reformatted images were created and reviewed. This CT exam was performed using one or more of the following dose reduction techniques: automated exposure control, adjustment of the mA and/or kV according to patient size, and/or use of iterative reconstruction technique. CONTRAST: 93ml of Optiray 320 was administered intravenously. COMPARISON: No relevant prior studies available. FINDINGS: Bones/joints: No acute changes. Soft tissues: There is a small knee joint effusion. There is circumferential cellulitis beginning at the level of the proximal tibial shaft progressively increasing with development of areas of associated lateral subcutaneous fluid superficial fascial thickening. There is progressively increasing cutaneous thickening extending toward the foot. There is no organized fluid collection. No subcutaneous gas. Vasculature: There is dense atherosclerosis in the popliteal artery with high-grade stenosis. No occlusion as the tibioperoneal trunk reconstitutes without filling defect. There is dense atherosclerosis at the origin of the anterior tibial artery which is otherwise patent. No aneurysm or dissection. IMPRESSION: 1. Moderate to severe progressively increasing cellulitis from the proximal tibia to the foot. No drainable abscess. 2. No evidence of osteomyelitis. 3. High-grade stenosis left popliteal artery posterior to the knee without occlusion. There is atherosclerosis at the origin of the left anterior tibial artery without occlusion. ACT 112: Negative or not required by law. Electronically signed by Aziza Mccurdy 05-25-2024 10:59 AM Venous Doppler Study 05/25/24 10:00 EXAM: US Duplex Left Lower Extremity Veins INDICATION: Wound. TECHNIQUE: Real-time duplex ultrasound scan of the left lower extremity veins integrating B-mode two-dimensional vascular structure, Doppler spectral analysis, color flow Doppler imaging and compression. COMPARISON: No relevant prior studies available. FINDINGS: Deep veins: No DVT in the visualized common femoral, femoral or popliteal veins. The veins demonstrate normal color flow, are normally compressible, with normal phasic flow and/or augmentation response. Superficial veins: No abnormality noted. No thrombus in the visualized great saphenous vein. Soft tissues: No abnormality noted. IMPRESSION: No deep venous thrombosis of the left lower extremity. ACT 112: Negative or not required by law. Electronically signed by Aziza Mccurdy 05-25-2024 10:54 AM Medications Administered Home Medications Medication Instructions Recorded Confirmed Last Taken aspirin 81 mg tablet,delayed 81 mg PO QAM 02/14/19 05/23/24 05/23/24 release (Adult Low Dose Aspirin) chlorthalidone 25 mg tablet 25 mg PO QAM 02/14/19 05/23/24 05/23/24 furosemide 40 mg tablet 40 mg PO QAM 02/14/19 05/23/24 05/23/24 multivitamin 1 tab PO HS 02/14/19 05/23/24 05/22/24 rosuvastatin 40 mg tablet (Crestor) 40 mg PO HS 02/14/19 05/23/24 05/22/24 conjugated estrogens 1.25 mg 1.25 mg PO DAILY 08/31/20 05/23/24 05/23/24 tablet (Premarin) cholecalciferol (vitamin D3) 25 25 mcg PO DAILY 08/29/22 05/23/24 05/23/24 mcg (1,000 unit) capsule potassium chloride 20 mEq 40 meq PO QID 01/16/23 05/23/24 05/23/24 14:00 tablet,extended release(part/cryst) calcium carbonate (Calcium 600) 600 mg PO BID 02/08/23 05/23/24 05/23/24 08:00 finasteride 5 mg tablet 5 mg PO QAM 05/23/24 05/23/24 05/23/24 Active Medications Generic Name Dose Route Start Last Admin Trade Name Freq PRN Reason Stop Dose Admin Acetaminophen 650 mg 05/23/24 22:36 05/25/24 22:05 Acetaminophen 325 Mg Tab PO 06/22/24 22:35 650 mg Q4H PRN Administration pain/fever Aspirin 81 mg 05/24/24 09:00 05/26/24 07:59 Aspirin 81 Mg Ectab PO 06/23/24 08:59 81 mg QAM MAICO Administration Chlorthalidone 25 mg 05/24/24 09:00 05/25/24 09:06 Chlorthalidone 25 Mg Tab PO 06/23/24 08:59 25 mg QAM MAICO Administration Docusate Sodium 100 mg 05/25/24 21:00 05/26/24 07:56 Docusate Sodium 100 Mg Cap PO 06/24/24 20:59 Not Given BID MAICO Enoxaparin Sodium 30 mg 05/24/24 06:00 05/26/24 05:26 Enoxaparin Inj 30 Mg/0.3 Ml Syr SQ 06/23/24 05:59 30 mg Q24H MAICO Administration Estrogens Conjugated 1.25 mg 05/24/24 09:00 05/26/24 07:58 Estrogens, Conjugated 0.625 Mg Tab PO 06/23/24 08:59 1.25 mg DAILY MAICO Administration Finasteride 5 mg 05/24/24 09:00 05/26/24 07:58 Finasteride 5 Mg Tab PO 06/23/24 08:59 5 mg QAM MAICO Administration Furosemide 40 mg 05/24/24 09:00 05/26/24 07:59 Furosemide 40 Mg Tab PO 06/23/24 08:59 40 mg QAM MAICO Administration Metronidazole 500 mg in 100 mls @ 100 mls/hr 05/24/24 10:30 05/26/24 10:24 Flagyl IV 05/31/24 10:29 Infused Q12H MAICO Infusion Potassium Chloride 40 meq 05/24/24 09:00 05/26/24 12:03 Potassium Chloride Crtab 20 Meq Tabcr PO 06/23/24 08:59 40 meq QID MAICO Administration Rosuvastatin Calcium 40 mg 05/25/24 21:00 05/25/24 21:02 Rosuvastatin Calcium 20 Mg Tab PO 06/24/24 20:59 40 mg HS MAICO Administration Spironolactone 12.5 mg 05/25/24 09:00 05/26/24 07:58 Spironolactone 12.5 Mg Tab PO 06/24/24 08:59 12.5 mg DAILY MAICO Administration (2) Traumatic open wound of left lower leg Encounter type: subsequent encounter Qualified Code(s): S81.802D - Unspecified open wound, left lower leg, subsequent encounter
[2024-05-26] MEDS ORDERED: CEFEPIME 2000MG 2,000 MG/20 ML SYR IV SCH (13:00)
[2024-05-26] MEDS: 4.5GM X1 IV STA (13:03)
[2024-05-26] MEDS: 4.5GM EXT INFUSION IV SCH (18:02)
--- NOTE | 2024-05-26 22:43 | Vascular Medicine Consultation ---
Date of Consultation May 26, 2024 Assessment & Plan (1) Acute post-traumatic wound infection: 2. PAD 3. Chronic venous insufficiencypost multiple venous ablations 4. CAD post CABG 5. History of DVT Patient here with slow healing left anterior courtney ulcer and cellulitis. CT scan with incidental finding of high-grade left popliteal artery stenosis. Patient denies claudication or rest pain but on exam left lower extremity perfusion appears borderline and reduced from prior outpatient visits. Had prior arterial duplex 1 year ago on which had calcified left popliteal stenosis but did not appear hemodynamically significant with multiphasic distal waveforms and normal MARJORIE. Will plan to repeat left arterial duplex with MARJORIE/toe pressures to further assess effect of stenosis on downstream perfusion currently. If ankle/toe pressures unchanged feel can defer angiogram/intervention. If pres sures significantly reduced from last year then proceed with angiogram. Left popliteal artery stenosis on CT scan does appear amenable to endovascular intervention. Further recommendations pending ultrasound. History of Present Illness Attending Physician: Luis Alfredo Tinoco MD History of Present Illness Mrs. Heaton is a very pleasant 78 year old woman with history of CVI post multiple prior vein procedures and recurrent venous ulcers seen today due to left lower extremity wound and PAD on imaging. 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 Previously seen by vascular medicine initially 2020 with bilateral lower extremity edema. Patient underwent bilateral GSV adhesive ablation (Venaseal). Seen 08/2022 at wound center with nonhealing right courtney ulcer. Wound developed in March 2022 secondary to trauma after hitting her leg on a box. Underwent RT GSV remnant varithena 10/2022. More recently seen 07/2023 with left medial courtney ulcer. Underwent left SSV Varithena 08/2023 with eventual wound healing. Recurrent left leg wound 04/11/2024 after striking leg on cart. Awaiting follow- up with wound clinic, has been treated with outpatient p.o. antibiotics but wound has progressed. Readmitted 05/23/2024, has been seen by ID now on Zosyn for Pseudomonas coverage. CT scan of left leg showed no abscess. Does have calcified stenosis of left popliteal artery with apparent three-vessel distal runoff. Prior arterial duplex 04/2023 right MARJORIE 1.14, left 0.99. Calcified stenosis in popliteal but no elevated velocities and three-vessel runoff in the calf. Allergies Allergy/AdvReac Type Severity Reaction Status Date / Time No Known Allergies Allergy Verified 05/23/24 21:13 Home Medications Medication Instructions Recorded Confirmed Type aspirin 81 mg tablet,delayed 81 mg PO QAM 02/14/19 05/23/24 History release (Adult Low Dose Aspirin) chlorthalidone 25 mg tablet 25 mg PO QAM 02/14/19 05/23/24 History furosemide 40 mg tablet 40 mg PO QAM 02/14/19 05/23/24 History multivitamin 1 tab PO HS 02/14/19 05/23/24 History rosuvastatin 40 mg tablet (Crestor) 40 mg PO HS 02/14/19 05/23/24 History conjugated estrogens 1.25 mg 1.25 mg PO DAILY 08/31/20 05/23/24 History tablet (Premarin) cholecalciferol (vitamin D3) 25 25 mcg PO DAILY 08/29/22 05/23/24 History mcg (1,000 unit) capsule potassium chloride 20 mEq 40 meq PO QID 01/16/23 05/23/24 History tablet,extended release(part/cryst) calcium carbonate (Calcium 600) 600 mg PO BID 02/08/23 05/23/24 History finasteride 5 mg tablet 5 mg PO QAM 05/23/24 05/23/24 History Patient History Medical History Coronary artery disease Cat bite Surgical History Status post endovenous radiofrequency ablation of saphenous vein Venoseal procedure done 2020 H/O bladder repair surgery Hx of CABG H/O: hysterectomy H/O hernia repair Family History Other No significant family history Social History Smoking Status: Never smoker Second Hand Exposure: No; Do You Dip or Chew Tobacco: No; Tobacco Cessation Education Requested by Patient: No Hx Alcohol Use: No Hx Substance Use: No Preferred Language: Portuguese Communication Ability: Effective Visual Impairment: Limited Hearing Ability: Normal 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 Spouse also able to assist as needed. Other Information That Helps Us Care for You: No Feels Safe at Home: Yes Safety Concerns: Feels Safe At This Time Diet: regular during the past year weight has: remained stable Assistive Devices: None Review of Systems Review of Systems: All systems reviewed & are unremarkable except as noted in HPI & below Physical Exam Physical Exam: General: No acute distress, comfortable. HEENT: Head is normal. PERRLA. EOMI. Sclerae anicteric. Cardio: Regular, no murmurs Lungs clear bilaterally Extremities/vascular: -- Bilateral lower extremities cool, 1+ left lower extremity edema, trace edema in the right -- Radial 2+ bilaterally. 1+ popliteal on the right, 1+ PT on right, diminished DP. Diminished popliteal on left, palpable PT, diminished DP --Small varicosities, reticular and spid er veins bilaterally --Mild hyperpigmentation bilaterally Neurologic: Nonfocal Psychiatric: Affect appropriate. Alert and oriented. Left anterior courtney wound dressed, no surrounding erythema. Wound care images reviewed. Results & Data Vital Signs (Past 12 Hours) Vital Signs Temp Pulse Resp BP Pulse Ox O2 Del Method 05/26/24 20:52 98.2 F 75 16 116/71 100 Room Air 05/26/24 15:06 97.5 F L 83 18 96/63 L 95 Room Air PG Care Time/CCT Total # of Minutes Spent Total Time Spent with Patient: Total time spent is greater than 50% in coordination of care (as documented) at patient's floor/unit and/or counseling patient: Coding Level of Care Code 68126 INT INP/OBS CARE 2/55MIN Diagnoses Acute post-traumatic wound infection T14.8XXA; L08.9 Encounter type: initial encounter (1) Acute post-traumatic wound infection Encounter type: initial encounter Qualified Code(s): T14.8XXA - Other injury of unspecified body region, initial encounter; L08.9 - Local infection of the skin and subcutaneous tissue, unspecified
[2024-05-27 07:20] LABS: Basophils # (auto) 0.02 K/uL (0.00-0.20); Basophils % (auto) 0.3 %; Eosinophils # (auto) 0.08 K/uL (0.00-0.50); Eosinophils % (auto) 1.3 %; Hematocrit (blood only) 34.6 % (37.0-47.0); Hemoglobin 11.7 g/dl (12.0-16.0); Immature Granulocytes # (auto) 0.01 K/uL (0.01-0.20); Immature Granulocytes % (auto) 0.2 %; Lymphocytes # (auto) 1.37 K/uL (1.20-3.40); Lymphocytes % (auto) 21.8 %; Mean Corpuscular Hemoglobin 32.7 pg (25.0-34.0); Mean Corpuscular Hgb Conc 33.8 g/dL (32.0-36.0); Mean Corpuscular Volume 96.6 fL (80.0-100.0); Mean Platelet Volume 10.5 fL (9.4-12.4); Monocytes # (auto) 0.72 K/uL (0.11-0.59); Monocytes % (auto) 11.5 %; Neutrophils # (auto) 4.08 K/uL (1.40-6.50); Neutrophils % (auto) 64.9 %; Platelet Count 172 K/uL (130-400); RDW Coefficient of Variation 12.4 % (11.5-14.5); RDW Standard Deviation 43.8 fL (36.4-46.3); Red Blood Count 3.58 M/uL (4.20-5.40); White Blood Count 6.28 K/ul (4.8-10.8)
[2024-05-27 07:39] LABS: BUN Creatinine Ratio 20.7 (10-20); C Reactive Protein 1.28 mg/dl (0-0.5); Calcium 7.8 mg/dl (8.6-10.3); Creatinine Clr Calc Pharmacy 34.9 ml/min; Magnesium 2.1 mg/dl (1.7-2.4); Potassium 3.7 mmol/L (3.5-5.1)
--- NOTE | 2024-05-27 10:59 | Infectious Disease Progress Nt ---
Date of Service May 27, 2024 Assessment & Plan (1) Cellulitis of left lower leg: (2) Traumatic open wound of left lower leg: Plan This is a 78-year-old female with a past medical history of chronic venous insufficiency, venous stasis ulcers, who presents for left lower extremity pain and nonhealing ulcer. She was Initially evaluated in the ED on 05/12/24 for a left lower extremity wound after hitting her leg with luggage. Wound cultures on 05/12 grew E. coli, Peptostreptococcus anaerobius and Bacteroides fragilis. She completed therapy with Augmentin. While on Augmentin the left lower extremity continued to be painful with erythema. She returned to the ED on 05/23/24 for further evaluation. She denies recurrent trauma to the extremities. She denies fever, chills, sweats, nausea, vomiting. In the Ed, she is afebrile and hemodynamically stable. WBC 8.66, creatinine 1.15. Left lower extremity CT with and without contrast shows moderate to severe progressively increasing cellulitis from the proximal tibia to the foot. No drainable abscess. No osteomyelitis. There is high-grade stenosis of the left popliteal artery posterior to the knee without occlusion. LLE Doppler without DVT. She was started on Ancef and Flagyl. Wound cultures obtained and grew Pseudomonas aeruginosa. ID consulted for cellulitis with history of polymicrobial wound culture, failed outpatient antibiotics. Microbiology Left lower extremity wound culture 05/25/24: Moderate Pseudomonas aeruginosa (S cip, lev, zosyn, cef) Prior microbiology Left lower extremity wound culture05/12/24: E. coli (resistant to ampicillin, gent, Levaquin, intermediate ampicillin/sulbactam), Peptostreptococcus anaerobius, Bacteroides fragilis Left lower extremity wound 05/22/2022 Stenotrophomonas maltophilia (sensitive to Levaquin, trim/sulfa Antibiotics: Ceftriaxone 05/23 Daptomycin 05/23 Unasyn 05/23 Cefazolin Flagyl Zosyn 05/26-ongoing # LLE wound and cellulitis sp trauma -current wound cx with Pseudomonas ( superficial culture) -no s/o deep space infection on CT LE ( no osteo, no abscess) - high grade stenosis of L pop artery #History of polymicrobial wound culture on 05/12/24; Ecoli, bacteroides, peptostreptococcus - treated with amox/clav # PVD Discussion- vascular disease may be contributing to slow healing of wound i/s/o super imposed infection with pseudomonal infection, which was not covered with prior abx. She is pending left arterial duplex with SEE/toe pressures given stenosis seen at L pop artery on CT LE . IF significant downstream flow, she may undergo angiogram per [facility] sx note Would continue Intravenous abx i/s/o poor perfusion. Recommendations. - Continue Zosyn 4.5 g IV q 8 h which will cover Pseudomonas and prior anaerobes. Anticipate 7-10 days of abx based on clinical improvement. If arterial duplex w/o significant downstream effects, may be able to switch to oral fluoroquinolones if QTC < 500 . - follow up Arterial duplex ID will continue to follow. Juanjose Ding MD, MPH Infectious Disease [facility], [facility] Call [phone] with questions Admission and Anticipated Discharge Date Admission Date: May 23, 2024 Subjective Subsequent visit was provided via telemedicine using two-way real-time interactive telecommunication between the patient and the telemedicine provider. For the duration of the visit, the provider was performing the assessment from a different facility than the patient. This includesuse of bluetooth stethoscope forauscultationperformed by the telepresenter that the telemedicine provider can hear if described in the physical exam. [employer] contact information: Please call [facility] Center [phone]. (Phone Number For Physician Use Only) After establishing a telemedicine visit, patient was: Patient was verified with two unique identifiers Time Spent with Patient: Subsequent => 25 min She has less LLE pain. Cx + for pseudomonas only. Seen by vascular surgery- pending arterial duplex with see/toe pressure to assess stenosis Physical Exam Physical Exam: NAD Aniteric sclera Non labored breathing , On RA Soft , Non distended, Non tender abdomen LLE Anterior calf wound with crusted tissue. Surrounding cellulitis.. + edema.Scattered scabs on LLE. BL chronic stasis changes . R ant calf with chronic wound. AAO times 3 Cooperative, normal mood Results & Data Vital Signs (Past 12 Hours) Vital Signs Temp Pulse Resp BP Pulse Ox O2 Del Method 05/27/24 07:50 36.7 C 62 16 93/56 L 98 Room Air Laboratory Results Short CBC 05/27/24 Range/Units 06:49 WBC 6.28 (4.8-10.8) K/ul Hgb 11.7 L (12.0-16.0) g/dl Hct 34.6 L (37.0-47.0) % Plt Count 172 (130-400) K/uL BMP 05/27/24 06:49 Sodium 139 Potassium 3.7 D Chloride 108 H Carbon Dioxide 28 BUN 19 Creatinine 0.92 Glucose 89 Calcium 7.8 L Diagnostic Findings Microbiology 05/25/24 14:41 Leg,Left Gram Stain - Final 05/25/24 14:41 Leg,Left Wound Culture - Final Pseudomonas aeruginosa Lower Extremity CT 05/25/24 09:53 EXAM: CT Left Lower Extremity Without and With Intravenous Contrast Tibia and Fibula INDICATION: Trauma. Cellulitis. TECHNIQUE: Axial computed tomography images of the left tibia and fibula without and with intravenous contrast. Sagittal and coronal reformatted images were created and reviewed. This CT exam was performed using one or more of the following dose reduction techniques: automated exposure control, adjustment of the mA and/or kV according to patient size, and/or use of iterative reconstruction technique. CONTRAST: 93ml of Optiray 320 was administered intravenously. COMPARISON: No relevant prior studies available. FINDINGS: Bones/joints: No acute changes. Soft tissues: There is a small knee joint effusion. There is circumferential cellulitis beginning at the level of the proximal tibial shaft progressively increasing with development of areas of associated lateral subcutaneous fluid superficial fascial thickening. There is progressively increasing cutaneous thickening extending toward the foot. There is no organized fluid collection. No subcutaneous gas. Vasculature: There is dense atherosclerosis in the popliteal artery with high-grade stenosis. No occlusion as the tibioperoneal trunk reconstitutes without filling defect. There is dense atherosclerosis at the origin of the anterior tibial artery which is otherwise patent. No aneurysm or dissection. IMPRESSION: 1. Moderate to severe progressively increasing cellulitis from the proximal tibia to the foot. No drainable abscess. 2. No evidence of osteomyelitis. 3. High-grade stenosis left popliteal artery posterior to the knee without occlusion. There is atherosclerosis at the origin of the left anterior tibial artery without occlusion. ACT 112: Negative or not required by law. Electronically signed by Aziza Mccurdy 05-25-2024 10:59 AM Venous Doppler Study 05/25/24 10:00 EXAM: US Duplex Left Lower Extremity Veins INDICATION: Wound. TECHNIQUE: Real-time duplex ultrasound scan of the left lower extremity veins integrating B-mode two-dimensional vascular structure, Doppler spectral analysis, color flow Doppler imaging and compression. COMPARISON: No relevant prior studies available. FINDINGS: Deep veins: No DVT in the visualized common femoral, femoral or popliteal veins. The veins demonstrate normal color flow, are normally compressible, with normal phasic flow and/or augmentation response. Superficial veins: No abnormality noted. No thrombus in the visualized great saphenous vein. Soft tissues: No abnormality noted. IMPRESSION: No deep venous thrombosis of the left lower extremity. ACT 112: Negative or not required by law. Electronically signed by Aziza Mccurdy 05-25-2024 10:54 AM Medications Administered Home Medications Medication Instructions Recorded Confirmed Last Taken aspirin 81 mg tablet,delayed 81 mg PO QAM 02/14/19 05/23/24 05/23/24 release (Adult Low Dose Aspirin) chlorthalidone 25 mg tablet 25 mg PO QAM 02/14/19 05/23/24 05/23/24 furosemide 40 mg tablet 40 mg PO QAM 02/14/19 05/23/24 05/23/24 multivitamin 1 tab PO HS 02/14/19 05/23/24 05/22/24 rosuvastatin 40 mg tablet (Crestor) 40 mg PO HS 02/14/19 05/23/24 05/22/24 conjugated estrogens 1.25 mg 1.25 mg PO DAILY 08/31/20 05/23/24 05/23/24 tablet (Premarin) cholecalciferol (vitamin D3) 25 25 mcg PO DAILY 08/29/22 05/23/24 05/23/24 mcg (1,000 unit) capsule potassium chloride 20 mEq 40 meq PO QID 01/16/23 05/23/24 05/23/24 14:00 tablet,extended release(part/cryst) calcium carbonate (Calcium 600) 600 mg PO BID 02/08/23 05/23/24 05/23/24 08:00 finasteride 5 mg tablet 5 mg PO QAM 05/23/24 05/23/24 05/23/24 Active Medications Generic Name Dose Route Start Last Admin Trade Name Freq PRN Reason Stop Dose Admin Acetaminophen 650 mg 05/23/24 22:36 05/26/24 21:30 Acetaminophen 325 Mg Tab PO 06/22/24 22:35 650 mg Q4H PRN Administration pain/fever Aspirin 81 mg 05/24/24 09:00 05/27/24 07:34 Aspirin 81 Mg Ectab PO 06/23/24 08:59 81 mg QAM MAICO Administration Chlorthalidone 25 mg 05/24/24 09:00 05/25/24 09:06 Chlorthalidone 25 Mg Tab PO 06/23/24 08:59 25 mg QAM MAICO Administration Docusate Sodium 100 mg 05/25/24 21:00 05/27/24 07:28 Docusate Sodium 100 Mg Cap PO 06/24/24 20:59 Not Given BID MAICO Enoxaparin Sodium 30 mg 05/24/24 06:00 05/27/24 03:34 Enoxaparin Inj 30 Mg/0.3 Ml Syr SQ 06/23/24 05:59 Not Given Q24H MAICO Estrogens Conjugated 1.25 mg 05/24/24 09:00 05/27/24 07:34 Estrogens, Conjugated 0.625 Mg Tab PO 06/23/24 08:59 1.25 mg DAILY MAICO Administration Finasteride 5 mg 05/24/24 09:00 05/27/24 07:34 Finasteride 5 Mg Tab PO 06/23/24 08:59 5 mg QAM MAICO Administration Furosemide 40 mg 05/24/24 09:00 05/27/24 07:33 Furosemide 40 Mg Tab PO 06/23/24 08:59 40 mg QAM MAICO Administration Piperacillin Sod/Tazobactam Sod 4.5 gm in 100 mls @ 25 mls/hr 05/26/24 19:00 05/27/24 11:28 Zosyn IV 06/02/24 18:59 25 mls/hr Q8H MAICO Administration Protocol Potassium Chloride 40 meq 05/24/24 09:00 05/27/24 07:32 Potassium Chloride Crtab 20 Meq Tabcr PO 06/23/24 08:59 40 meq QID MAICO Administration Rosuvastatin Calcium 40 mg 05/25/24 21:00 05/26/24 20:15 Rosuvastatin Calcium 20 Mg Tab PO 06/24/24 20:59 40 mg HS MAICO Administration Spironolactone 12.5 mg 05/25/24 09:00 05/27/24 07:33 Spironolactone 12.5 Mg Tab PO 06/24/24 08:59 12.5 mg DAILY MAICO Administration (2) Traumatic open wound of left lower leg Encounter type: subsequent encounter Qualified Code(s): S81.802D - Unspecified open wound, left lower leg, subsequent encounter
--- NOTE | 2024-05-27 12:59 | Hospitalist Progress Note ---
Date of Service May 27, 2024 Assessment & Plan (1) Cellulitis of left lower leg: Plan: 78-year-old female PMHx significant for HTN, DVT (in 2018), HLD, chronic venous insufficiency presented for ongoing/worsening cellulitis. Was seen in ED on 05/12 after hitting her leg with luggage which resulted in a wound/blistering and was discharged on initially Keflex and doxycycline but then was adjusted to Augmentin by pharmacy and completed course PO. Blood cultures and LE Doppler negative at that time. Admitted for failure of outpatient treatment. #LLE cellulitis/nonhealing ulceration/chronic venous insufficiency Placed on Dapto/Unasyn on admission however not improving and based on prior culture date and switched to Ancef/Flagyl. Repeat culture with pseudomonas and switched to Zosyn Infectious Disease Consulted - continue zosyn, possible switch to PO (Fluoroquinolone) pending arterial duplex result. QTC okay Repeat Venous Doppler Negative for DVT. CT LLE w/ Moderate to severe progressively increasing cellulitis from the proximal tibia to the foot. No drainable abscess. No evidence for osteo. HIGH GRADE stenosis left popliteal artery posterior to the knee without occlusion. Vascular consulted, Dr. Bray - Plan for left arterial duplex to asses stenosis, if pressure reduced then consider angiogram Pain control: elevate extremity, tylenol, oxycodone PT/OT - rec return home MARJORIE slightly compared to prior exam 0.9 - awaiting vascular input #Hypokalemia - chronic / HTN Renin/brandi levels pending given chronic hypokalemia however suspect 2nd to medication use Home dose: Potassium 40meq FOUR TIMES DAILY. 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 Stop chlorthalidone. Added Spironolactone. Plan to titrate spironolactone if BP allows, titrate down K if able. K improved to 3.7 today, AM BMP #HLD - Rosuvastatin held given dapto IV on admission, resumed 05/25 #Vitamin D toxicity - Vitamin D >120. discontinue home supplementation at discharge Dispo: continued inpatient stay DVT proh: Lovenox (2) Hypokalemia: (3) H/O: HTN (hypertension): (4) Vitamin D toxicity: Plan Dispo: continued inpatient stay, ID/abx adjustment as above and f/u final repeat cxs. Lasix/spironolactone as outlined and vascular consult pending [facility] dc next 24-48hrs pending repeat evals/final cx on PO abx Admission and Anticipated Discharge Date Admission Date: May 23, 2024 Supervising Physician Co-Signing Physician Notes Attending Attestation - Chart reviewed, care plan d/w DEMAR Terrell. I agree w/ the ty components of her documentation. Appreciate ID & vascular surgery consults/recs. Cont IV abx. Luis Alfredo Tinoco MD Subjective Patient lying in bed, feeling okay. No arterial dopppler yet some pain in leg no fevers or chills. good appetite Review of Systems Review of Systems: All systems reviewed & are unremarkable except as noted in Subjective Physical Exam Physical Exam: General: NAD, VS as above, sitting up in bed, appears well Resp: normal respiratory effort, lungs clear to auscultation CV: RRR, no murmur, Abd: normal bowel sounds, non tender, no hepatosplenomegaly Extremities: left LE with edema and warm to touch. b/l LE wounds covered. No RLE edema Neuro: A&O x3, Skin: intact, no lesions noted Results & Data Results & Data Vital Signs (Past 12 Hours) Vital Signs Temp Pulse Resp BP Pulse Ox O2 Del Method 05/27/24 12:14 98.1 F 76 18 110/68 99 Room Air 05/27/24 12:01 98.8 F 74 18 126/76 97 Room Air 05/27/24 07:50 98.1 F 62 16 93/56 L 98 Room Air Laboratory Results CBC, chemistry and crp reviewed PG Care Time/CCT Total # of Minutes Spent Total Time Spent with Patient: Total time spent is greater than 50% in coordination of care (as documented) at patient's floor/unit and/or counseling patient: Coding Level of Care Code 52966 SUB INP/OBS CARE 3/50MIN Diagnoses Cellulitis of left lower leg L03.116 Hypokalemia E87.6 H/O: HTN (hypertension) Z86.79 Vitamin D toxicity T45.2X1A
--- NOTE | 2024-05-27 14:35 | Ultrasound Report ---
US arterial duplex LE CLINICAL HISTORY: PAD COMPARISON STUDY: 04/18/2023 FINDINGS: Right MARJORIE is 1.0, normal. Left MARJORIE is 0.9, acceptable. No evidence of significant arterial narrowing or occlusion seen at the lower extremities. IMPRESSION: 1. The MARJORIE is slightly decreased compared to the prior exam bilaterally. 2. No severe arterial stenosis or occlusion seen. ACT 112: Negative or not required by law. Electronically signed by: Tres Hoyt M.D. 05/27/2024 2:33 PM
--- NOTE | 2024-05-27 16:07 | Electrocardiogram Report ---
Test Reason : Blood Pressure : */* mmHG Vent. Rate : 75 BPM Atrial Rate : 75 BPM P-R Int : 184 ms QRS Dur : 72 ms QT Int : 414 ms P-R-T Axes : 49 11 35 degrees QTcB Int : 462 ms Poor data quality, interpretation may be adversely affected Normal sinus rhythm Normal ECG When compared with ECG of 17-Jul-2022 23:14, QRS axis Shifted right Criteria for Inferior infarct are no longer Present Confirmed by Austin Madera ([id number]) on 05/27/2024 4:06:43 PM Referred By: REFERRED SELF Confirmed By: Austin Madera
--- NOTE | 2024-05-27 18:05 | Vascular Medicine ProgressNote ---
Date of Service May 27, 2024 Assessment & Plan (1) Acute post-traumatic wound infection: Plan: 2. PAD 3. Chronic venous insufficiencypost multiple venous ablations 4. CAD post CABG 5. History of DVT Reviewed patient's repeat arterial duplex. She does have calcified atherosclerotic plaque in left popliteal artery but no evidence of flow-limiting stenosis. Infrapopliteal arteries appear widely patent. MARJORIE remains low normal and measured toe pressure adequate for wound healing. At this point feel arterial perfusion should be adequate to heal current wound and that there is limited potential benefit from further invasive vascular testing/revascularization. Recommend continued follow-up with wound care center on discharge. Okay for any kind of compressive therapy. Continue ASCVD secondary prevention meds. Can follow-up with vascular medicine as needed. Admission and Anticipated Discharge Date Admission Date: May 23, 2024 Subjective Feeling well this afternoon. Denies significant pain in left lower extremity. No other new concerns. Tired of being here. Review of Systems Review of Systems: All systems reviewed & are unremarkable except as noted in HPI & below Physical Exam Physical Exam: General: No acute distress, comfortable. HEENT: Sclerae anicteric. Cardio: Regular, no murmurs Lungs clear bilaterally Extremities/vascular: -- Trace to 1+ left lower extremity roseline a around wound, trace edema on the right -- Radial 2+ bilaterally. 1+ popliteal on the right, 1+ PT on right, diminished DP. Diminished popliteal on left, palpable PT, diminished DP --Small varicosities, reticular and spid er veins bilaterally --Mild hyperpigmentation bilaterally Neurologic: Nonfocal Psychiatric: Affect appropriate. Alert and oriented. Left anterior courtney wound dressed, no surrounding erythema. Wound care images reviewed. Results & Data Vital Signs (Past 12 Hours) Vital Signs Temp Pulse Resp BP Pulse Ox O2 Del Method 05/27/24 14:14 97.9 F 65 18 116/73 99 Room Air 05/27/24 12:14 98.1 F 76 18 110/68 99 Room Air 05/27/24 12:01 98.8 F 74 18 126/76 97 Room Air 05/27/24 07:50 98.1 F 62 16 93/56 L 98 Room Air PG Care Time/CCT Total # of Minutes Spent Total Time Spent with Patient: Total time spent is greater than 50% in coordination of care (as documented) at patient's floor/unit and/or counseling patient: Coding Level of Care Code 19567 SUB INP/OBS CARE 2/35MIN Diagnoses Acute post-traumatic wound infection T14.8XXA; L08.9 Encounter type: initial encounter (1) Acute post-traumatic wound infection Encounter type: initial encounter Qualified Code(s): T14.8XXA - Other injury of unspecified body region, initial encounter; L08.9 - Local infection of the skin and subcutaneous tissue, unspecified
[2024-05-28 09:16] LABS: BUN Creatinine Ratio 15.7 (10-20); C Reactive Protein 0.71 mg/dl (0-0.5); Creatinine Clr Calc Pharmacy 36.1 ml/min; Potassium 3.9 mmol/L (3.5-5.1)
--- NOTE | 2024-05-28 14:54 | Infectious Disease Progress Nt ---
Date of Service May 28, 2024 Assessment & Plan (1) Cellulitis of left lower leg: (2) Traumatic open wound of left lower leg: Plan This is a 78-year-old female with a past medical history of chronic venous insufficiency, venous stasis ulcers, who presents for left lower extremity pain and nonhealing ulcer. She was Initially evaluated in the ED on 05/12/24 for a left lower extremity wound after hitting her leg with luggage. Wound cultures on 05/12 grew E. coli, Peptostreptococcus anaerobius and Bacteroides fragilis. She completed therapy with Augmentin. While on Augmentin the left lower extremity continued to be painful with erythema. She returned to the ED on 05/23/24 for further evaluation. She denies recurrent trauma to the extremities. She denies fever, chills, sweats, nausea, vomiting. In the Ed, she is afebrile and hemodynamically stable. WBC 8.66, creatinine 1.15. Left lower extremity CT with and without contrast shows moderate to severe progressively increasing cellulitis from the proximal tibia to the foot. No drainable abscess. No osteomyelitis. There is high-grade stenosis of the left popliteal artery posterior to the knee without occlusion. LLE Doppler without DVT. She was started on Ancef and Flagyl. Wound cultures obtained and grew Pseudomonas aeruginosa. ID consulted for cellulitis with history of polymicrobial wound culture, failed outpatient antibiotics. Microbiology Left lower extremity wound culture 05/25/24: Moderate Pseudomonas aeruginosa (S cip, lev, zosyn, cef) Prior microbiology Left lower extremity wound culture05/12/24: E. coli (resistant to ampicillin, gent, Levaquin, intermediate ampicillin/sulbactam), Peptostreptococcus anaerobius, Bacteroides fragilis Left lower extremity wound 05/22/2022 Stenotrophomonas maltophilia (sensitive to Levaquin, trim/sulfa Antibiotics: Ceftriaxone 05/23 Daptomycin 05/23 Unasyn 05/23 Cefazolin Flagyl Zosyn 05/26-ongoing # LLE wound and cellulitis sp trauma -current wound cx with Pseudomonas ( superficial culture) -no s/o deep space infection on CT LE ( no osteo, no abscess) - high grade stenosis of L pop artery #History of polymicrobial wound culture on 05/12/24; Ecoli, bacteroides, peptostreptococcus - treated with amox/clav #Venous insufficiency sp multiple ablations #PVD Discussion- vascular disease may be contributing to slow healing of wound i/s/o super imposed infection with pseudomonal infection, which was not covered with prior abx. She underwent left arterial duplex with MARJORIE/toe pressures given stenosis seen at L pop artery on CT LE . Intravenous abx with zoayn was continued i/s/o possible poor perfusion. 05/28 Arterial duplex completed. There is no flow-limiting stenosis noted .Vascular feels the "MARJORIE remains low normal and measured toe pressure adequate for wound healing" QTC is 465 ( 05/27) Recommendations. - Continue Zosyn 4.5 g IV q 8 h which will cover Pseudomonas and prior anaerobes. Anticipate a total of 7-10 days of abx based on clinical improvement. Since arterial duplex w/o significant downstream effects, and vascular feels her arterial perfusion is adequate to heal current wound and no plans for interventions, can switch to cipro 500 mg po q12 ( cr cl 36)when ready for dc. Cipro will only cover Pseudomonas. - continue wound care D/w team ID will stop actively following. Please call with questions Juanjose Ding MD, MPH Infectious Disease [facility], ID Division Call [phone] with questions Admission and Anticipated Discharge Date Admission Date: May 23, 2024 Subjective This patient recommendation is based on a telemedicine consult request which was completed asynchronously through chart review and information provided by the primary physician. The patient was not seen or examined today. The evaluation is consultative in nature and all patient care and treatment decisions can either be accepted or rejected by the patient's primary hospital-based treating physician using their own independent medical judgment for their patient. Time Spent Reviewing Chart: 31+ minutes Patient not available in room for initial follow-up televisit today. No telepresenter available once patient back in her room so E consult performed. Discussed with team Results & Data Vital Signs (Past 12 Hours) Vital Signs Temp Pulse Resp BP Pulse Ox O2 Del Method 05/28/24 12:00 36.4 C L 70 16 110/68 96 Room Air 05/28/24 07:34 36.6 C 64 16 100/54 L 97 Room Air Laboratory Results [facility] 05/28/24 08:32 Sodium 140 Potassium 3.9 Chloride 106 Carbon Dioxide 29 BUN 14 Creatinine 0.89 Glucose 183 H Calcium 9.0 Diagnostic Findings Microbiology 05/25/24 14:41 Leg,Left Gram Stain - Final 05/25/24 14:41 Leg,Left Wound Culture - Final Pseudomonas aeruginosa Duplex Scan Lower Extremity Artery 05/27/24 00:00 US arterial duplex LE CLINICAL HISTORY: PAD COMPARISON STUDY: 04/18/2023 FINDINGS: Right MARJORIE is 1.0, normal. Left MARJORIE is 0.9, acceptable. No evidence of significant arterial narrowing or occlusion seen at the lower extremities. IMPRESSION: 1. The MARJORIE is slightly decreased compared to the prior exam bilaterally. 2. No severe arterial stenosis or occlusion seen. ACT 112: Negative or not required by law. Electronically signed by: Tres Hoyt M.D. 05/27/2024 2:33 PM Medications Administered Home Medications Medication Instructions Recorded Confirmed Last Taken aspirin 81 mg tablet,delayed 81 mg PO QAM 02/14/19 05/23/24 05/23/24 release (Adult Low Dose Aspirin) chlorthalidone 25 mg tablet 25 mg PO QAM 02/14/19 05/23/24 05/23/24 furosemide 40 mg tablet 40 mg PO QAM 02/14/19 05/23/24 05/23/24 multivitamin 1 tab PO HS 02/14/19 05/23/24 05/22/24 rosuvastatin 40 mg tablet (Crestor) 40 mg PO HS 02/14/19 05/23/24 05/22/24 conjugated estrogens 1.25 mg 1.25 mg PO DAILY 08/31/20 05/23/24 05/23/24 tablet (Premarin) cholecalciferol (vitamin D3) 25 25 mcg PO DAILY 08/29/22 05/23/24 05/23/24 mcg (1,000 unit) capsule potassium chloride 20 mEq 40 meq PO QID 01/16/23 05/23/24 05/23/24 14:00 tablet,extended release(part/cryst) calcium carbonate (Calcium 600) 600 mg PO BID 02/08/23 05/23/24 05/23/24 08:00 finasteride 5 mg tablet 5 mg PO QAM 05/23/24 05/23/24 05/23/24 Active Medications Generic Name Dose Route Start Last Admin Trade Name Freq PRN Reason Stop Dose Admin Acetaminophen 650 mg 05/23/24 22:36 05/26/24 21:30 Acetaminophen 325 Mg Tab PO 06/22/24 22:35 650 mg Q4H PRN Administration pain/fever Aspirin 81 mg 05/24/24 09:00 05/28/24 08:17 Aspirin 81 Mg Ectab PO 06/23/24 08:59 81 mg QAM MAICO Administration Chlorthalidone 25 mg 05/24/24 09:00 05/25/24 09:06 Chlorthalidone 25 Mg Tab PO 06/23/24 08:59 25 mg QAM MAICO Administration Docusate Sodium 100 mg 05/25/24 21:00 05/28/24 08:17 Docusate Sodium 100 Mg Cap PO 06/24/24 20:59 Not Given BID MAICO Enoxaparin Sodium 30 mg 05/24/24 06:00 05/28/24 06:14 Enoxaparin Inj 30 Mg/0.3 Ml Syr SQ 06/23/24 05:59 30 mg Q24H MAICO Administration Estrogens Conjugated 1.25 mg 05/24/24 09:00 05/28/24 08:17 Estrogens, Conjugated 0.625 Mg Tab PO 06/23/24 08:59 1.25 mg DAILY MAICO Administration Finasteride 5 mg 05/24/24 09:00 05/28/24 08:17 Finasteride 5 Mg Tab PO 06/23/24 08:59 5 mg QAM MAICO Administration Furosemide 40 mg 05/24/24 09:00 05/28/24 08:17 Furosemide 40 Mg Tab PO 06/23/24 08:59 40 mg QAM MAICO Administration Piperacillin Sod/Tazobactam Sod 4.5 gm in 100 mls @ 25 mls/hr 05/26/24 19:00 05/28/24 15:05 Zosyn IV 06/02/24 18:59 Infused Q8H MAICO Infusion Protocol Rosuvastatin Calcium 40 mg 05/25/24 21:00 05/27/24 20:55 Rosuvastatin Calcium 20 Mg Tab PO 06/24/24 20:59 40 mg HS MAICO Administration Spironolactone 12.5 mg 05/25/24 09:00 05/28/24 08:18 Spironolactone 12.5 Mg Tab PO 06/24/24 08:59 12.5 mg DAILY MAICO Administration (2) Traumatic open wound of left lower leg Encounter type: subsequent encounter Qualified Code(s): S81.802D - Unspe cified open wound, left lower leg, subsequent encounter
--- NOTE | 2024-05-28 14:55 | Hospitalist Progress Note ---
Date of Service May 28, 2024 Assessment & Plan (1) Cellulitis of left lower leg: (2) Hypokalemia: (3) H/O: HTN (hypertension): (4) Vitamin D toxicity: Plan 78-year-old female PMHx significant for HTN, DVT (in 2018), HLD, chronic venous insufficiency presented for ongoing/worsening cellulitis. Was seen in ED on 05/12 after hitting her leg with luggage which resulted in a wound/blistering and was discharged on initially Keflex and doxycycline but then was adjusted to Augmenti n by pharmacy and completed course PO. Blood cultures and LE Doppler negative at that time. Admitted for failure of outpatient treatment. #LLE cellulitis/nonhealing ulceration/chronic venous insufficiency Placed on Dapto/Unasyn on admission however not improving and based on prior culture date and switched to Ancef/Flagyl. Repeat culture with pseudomonas and switched to Zosyn 05/26 Infectious Disease Consulted - continue zosyn, possible switch to PO (Fluoroquinolone) pending arterial duplex result. QTC okay Repeat Venous Doppler Negative for DVT. CT LLE w/ Moderate to severe progressively increasing cellulitis from the proximal tibia to the foot. No drainable abscess. No evidence for osteo. HIGH GRADE stenosis left popliteal artery posterior to the knee without occlusion. Vascular consulted, Dr. Bray - MARJORIE remains low normal and toe pressure adequate for wound healing, no indication for invasive revascularization. Recommend wound care follow-up on discharge Pain control: elevate extremity, tylenol, oxycodone PT/OT - rec return home Spoke with ID today, recommending at least 3 days of IV antibiotics pending improvement #Hypokalemia - chronic / HTN Renin/brandi levels pending given chronic hypokalemia however suspect 2nd to medication use Home dose: Potassium 40meq FOUR TIMES DAILY. Home diuretics: chlorthalidone 25mg daily (PCP), lasix 40mg ([facility] [employer]) Continue lasix. Stop chlorthalidone. Added Spironolactone. with changes potassium stable/increasing, will decrease to 3 times a day #HLD - Rosuvastatin held given dapto IV on admission, resumed 05/25 #Vitamin D toxicity - Vitamin D >120. discontinue home supplementation at discharge Dispo: continued inpatient stay for IV antibiotics DVT proh: Lovenox Admission and Anticipated Discharge Date Admission Date: May 23, 2024 Supervising Physician Co-Signing Physician Notes Attending Attestation - Chart reviewed, care plan d/w DEMAR Terrell. I agree w/ the ty components of her documentation. Appreciate ID & vascular surgery consults/recs. Cont IV abx for LLE cellulitis. Luis Alfredo Tinoco MD Subjective Patient seen ambulating independently in the room. feels well, no fevers or chills pain in leg is less redness has improved Review of Systems Review of Systems: All systems reviewed & are unremarkable except as noted in Subjective Physical Exam Physical Exam: General: NAD, VS as above, ambulating in the room Resp: normal respiratory effort, lungs clear to auscultation CV: RRR, no murmur, Abd: normal bowel sounds, non tender, Extremities: left LE with edema however not warm to the touch like yesterday, erythema significantly decreased Neuro: A&O x3, Results & Data Results & Data Vital Signs (Past 12 Hours) Vital Signs Temp Pulse Resp BP Pulse Ox O2 Del Method 05/28/24 12:00 97.5 F L 70 16 110/68 96 Room Air 05/28/24 07:34 97.9 F 64 16 100/54 L 97 Room Air Laboratory Results BMP and CRP reviewed PG Care Time/CCT Total # of Minutes Spent Total Time Spent with Patient: Total time spent is greater than 50% in coordination of care (as documented) at patient's floor/unit and/or counseling patient: Coding Level of Care Code 04976 SUB INP/OBS CARE 3/50MIN Diagnoses Cellulitis of left lower leg L03.116 Hypokalemia E87.6 H/O: HTN (hypertension) Z86.79 Vitamin D toxicity T45.2X1A
[2024-05-28 15:14] VITALS: TEMP 97.7
[2024-05-28] MEDS: POTASSIUM CHLORIDE CRTAB 20 MEQ TABCR PO SCH (20:39)
[2024-05-29 07:49] LABS: Calcium 8.2 mg/dl (8.6-10.3); Creatinine Clr Calc Pharmacy 43.4 ml/min; Potassium 3.7 mmol/L (3.5-5.1)
[2024-05-29 08:33] VITALS: BP 103/55; PULSE 75; RESP 16; O2SAT 100
--- NOTE | 2024-05-29 09:41 | Discharge Summary ---
Discharge Summary Date of Service May 29, 2024 Principal Dx & Hospital Course #1 = Principal Diagnosis (1) Cellulitis of left lower leg: (2) Hypokalemia: (3) H/O: HTN (hypertension): (4) Vitamin D toxicity: Plan #LLE cellulitis/nonhealing ulceration/chronic venous insufficiency 78-year-old female PMHx significant for HTN, DVT (in 2018), HLD, chronic venous insufficiency presented for ongoing/worsening cellulitis. Was seen in ED on 05/12 after hitting her leg with luggage which resulted in a wound/blistering and was discharged on initially Keflex and doxycycline but then was adjusted to Augmentin by pharmacy and completed course PO. Blood cultures and LE Doppler negative at that time. Admitted for failure of outpatient treatment. She was trialed on different antibiotics without improvement. Finally able to obtain culture data that showed Pseudomonas and switched to Zosyn on 05/26. ID was consulted and recommended that she could switch to p.o. ciprofloxacin after the arterial duplex resulted (QTc okay). Dr. Bray from vascular surgery was also consulted and said that although the MARJORIE remains low she had adequate toe pressure for wound healing. Recommend wound care follow-up on discharge. She had a venous Doppler that was negative for DVT and this CT of the lower extremity showed cellulitis with no drainable abscess, no osteo. Elevated leg as able. #Hypokalemia - chronic / HTN Renin/brandi levels pending given chronic hypokalemia however suspect 2nd to medication use Home dose: Potassium 40meq FOUR TIMES DAILY - this is continued at discharge. Continue lasix. Stop chlorthalidone. Added Spironolactone. Suspect that potassium dose frequency can be down titrated in the outpatient setting wiht addition of spironolactone #HLD - Continue statin #Vitamin D toxicity - Vitamin D >120. discontinue home supplementation. dispo: Discharge to home today, with wound care follow-up Notes For Next Care Provider needs wound care follow-up Diuretics adjusted, was likely on too much with chlorthalidone and Lasix. Chlorthalidone stopped spironolactone added Possibly can titrate down her p.o. potassium dosing Medication Changes From Visit add spironolactone Stop chlorthalidone Stop vitamin D supplement Ciprofloxacin twice daily x 7 days Admission HPI Per Admitting Provider 78-year-old female PMHx significant stenosis, DVT, and cellulitis of LLE. Initially evaluated on 05/12 for LLE wound after hitting her leg with luggage which resulted in a wound and was discharged on initially Keflex and doxycycline but then was adjusted to Augmentin by pharmacy. Presenting today for ongoing redness and pain after completing a course of Augmentin. Noticed that the redness is spreading. No F/C. Pain at leg is 8 out of 10 at most times, coming and going. Takes Advil which helps to alleviate the pain, but is always present. Is having numbness and tingling throughout the leg and into her foot. States that she has had problems with nonhealing wounds in the past. Wound culture grew out E. coli, Peptostreptococcus Enterobius, and Bacteroides fragilis. Overall denying chest pain, shortness of breath, palpitation, abdominal pain, N/V/D/C, LUTS, or fever/chills. ED evaluation reveals no leukocytosis, normal H&H, CMP grossly WNL with exception of BUN 24, BUN/creatinine 20.9, CRP pending. Provided with Rocephin and NSS in ED. Please see Dr. Dennis's attestation for adjustments/additions to treatment plan. Discharge Exam General: NAD, VS as above, ambulating in the room Resp: normal respiratory effort, lungs clear to auscultation CV: RRR, no murmur, Abd: normal bowel sounds, non tender, Extremities: left LE with edema however not warm to the touch like yesterday, erythema significantly decreased. wound seems to be improving Neuro: A&O x3, Discharge Plan Discharge Items Patient Disposition: Home - Self-Care Reason For Visit: LLE CELLULITIS Discharge Diagnosis: Leg wound Activity: Resume your previous activity Weightbearing: Full weightbearing Non-emergency contact: Primary Care Provider Call non-emergency contact if: you have any medication questions, your symptoms worsen, your pain is not controlled, your pain is worsening and your temperature is above 101 Follow-up/Referrals: Sosa Parks CRNP [Nurse Practitioner] - (follow up with wound care ) Amol Voss MD [Primary Care Provider] - (follow up within one week ) Diet: Heart Healthy Addtl Attending Provider Instructions: Ms. Heaton, You were hospitalized after having worsening leg infection, this was likely because the antibiotics did not cover the bacteria that was growing in your wound. We were able to get a culture of the wound to make sure the antibiotics are appropriate. Thankfully, after switching to the right antibiotics, you have done well and you wound is starting to improve. You will be transitioned to oral antibiotics, ciprofloxacin to take for 7 more days. The first dose is PM on 05/29. You will also need to follow up with the wound care center. They should call you with an appointment. If you do not hear from them by Sunday please call the number above to get scheduled for an appointment. Please elevate your leg when able. Keep the wound clean and dry and covered. Medication changes: * Ciprofloxacin 500mg twice a day - for 7 days, this is your antibiotic * STOP chlorthalidone - this was likely making you loose potassium and dropping your blood pressure. You will continue lasix. * Start spironolactone - this is also a diuretic but preserves the potassium * Stop Vit D supplement - your Vitamin D levels were too high. Contiuing the supplement could lead to toxicity. Given that we have changed your meds around you may be able to decrease the amount of potassium you take in the future. Continue to work with your PCP regarding this. CONTACT YOUR PRIMARY CARE PROVIDER if you experience any of the following: Shortness of breath or difficulty breathing Fevers or chills Feeling tired with normal activity or experiencing dizziness or fainting Difficulty following your treatment plan, or difficulty taking medications Calll wound care center - wound is getting worse - difficulty with changing dressing - lack of supplies CALL 911 OR GO TO THE EMERGENCY DEPARTMENT if you experience any of the following: Severe abdominal pain or nausea/vomiting Severe chest pain, or chest pain that radiates (moves) to your jaw or arm Sudden, severe shortness of breath or difficulty breathing Thank you for allowing us to participate in your care. Pending Studies at Discharge: No Stand-Alone Forms: My [employer], Smoking Cessation Medications and DC Order Prescriptions: New spironolactone 25 mg Tablet 12.5 mg PO DAILY Qty: 30 0RF ciprofloxacin HCl 500 mg tablet 500 mg PO BID Qty: 14 0RF Continued aspirin [Adult Low Dose Aspirin] 81 mg tablet,delayed release (DR/EC) 81 mg PO QAM multivitamin tablet 1 tab PO HS Rx Instructions: gummy furosemide 40 mg tablet 40 mg PO QAM rosuvastatin [Crestor] 40 mg tablet 40 mg PO HS calcium carbonate [Calcium 600] 600 mg calcium (1,500 mg) Tablet 600 mg PO BID Premarin 1.25 mg tablet 1.25 mg PO DAILY potassium chloride 20 mEq tablet,ER particles/crystals 40 meq PO QID finasteride 5 mg tablet 5 mg PO QAM Discontinued cholecalciferol (vitamin D3) 25 mcg (1,000 unit) capsule 25 mcg PO DAILY chlorthalidone 25 mg tablet 25 mg PO QAM Discharge Orders: Discharge Order (Routine); Ordered 05/29/24 Ordered By: Dana Terrell Admission Data Admit Date/Time: 05/23/24 21:33 Attending Provider: Luis Alfredo Tinoco Admit Provider: Eran Dennis Primary Care Provider: Amol Voss Other Providers: Eran Dennis; Severiano Bray; Keyona Alvarado; Misti Cote; Jayleen Mejias; Juanjose Ding; Socorro Sanford; Taylor Mendez Hospital Stay Data Consultations 05/23/24 20:43 ED Decision to Admit Stat 05/25/24 11:25 Consult Vascular Surgery Routine 05/26/24 12:15 Consult Infectious Diseases Routine Diagnostic Imagining Performed Lower Extremity CT 05/25/24 09:53 EXAM: CT Left Lower Extremity Without and With Intravenous Contrast Tibia and Fibula INDICATION: Trauma. Cellulitis. TECHNIQUE: Axial computed tomography images of the left tibia and fibula without and with intravenous contrast. Sagittal and coronal reformatted images were created and reviewed. This CT exam was performed using one or more of the following dose reduction techniques: automated exposure control, adjustment of the mA and/or kV according to patient size, and/or use of iterative reconstruction technique. CONTRAST: 93ml of Optiray 320 was administered intravenously. COMPARISON: No relevant prior studies available. FINDINGS: Bones/joints: No acute changes. Soft tissues: There is a small knee joint effusion. There is circumferential cellulitis beginning at the level of the proximal tibial shaft progressively increasing with development of areas of associated lateral subcutaneous fluid superficial fascial thickening. There is progressively increasing cutaneous thickening extending toward the foot. There is no organized fluid collection. No subcutaneous gas. Vasculature: There is dense atherosclerosis in the popliteal artery with high-grade stenosis. No occlusion as the tibioperoneal trunk reconstitutes without filling defect. There is dense atherosclerosis at the origin of the anterior tibial artery which is otherwise patent. No aneurysm or dissection. IMPRESSION: 1. Moderate to severe progressively increasing cellulitis from the proximal tibia to the foot. No drainable abscess. 2. No evidence of osteomyelitis. 3. High-grade stenosis left popliteal artery posterior to the knee without occlusion. There is atherosclerosis at the origin of the left anterior tibial artery without occlusion. ACT 112: Negative or not required by law. Electronically signed by Aziza Mccurdy 05-25-2024 10:59 AM Venous Doppler Study 05/25/24 10:00 EXAM: US Duplex Left Lower Extremity Veins INDICATION: Wound. TECHNIQUE: Real-time duplex ultrasound scan of the left lower extremity veins integrating B-mode two-dimensional vascular structure, Doppler spectral analysis, color flow Doppler imaging and compression. COMPARISON: No relevant prior studies available. FINDINGS: Deep veins: No DVT in the visualized common femoral, femoral or popliteal veins. The veins demonstrate normal color flow, are normally compressible, with normal phasic flow and/or augmentation response. Superficial veins: No abnormality noted. No thrombus in the visualized great saphenous vein. Soft tissues: No abnormality noted. IMPRESSION: No deep venous thrombosis of the left lower extremity. ACT 112: Negative or not required by law. Electronically signed by Aziza Mccurdy 05-25-2024 10:54 AM Duplex Scan Lower Extremity Artery 05/27/24 00:00 US arterial duplex LE LT CLINICAL HISTORY: PAD COMPARISON STUDY: 04/18/2023 FINDINGS: Right MARJORIE is 1.0, normal. Left MARJORIE is 0.9, acceptable. No evidence of significant arterial narrowing or occlusion seen at the lower extremities. IMPRESSION: 1. The MARJORIE is slightly decreased compared to the prior exam bilaterally. 2. No severe arterial stenosis or occlusion seen. ACT 112: Negative or not required by law. Electronically signed by: Tres Hoyt M.D. 05/27/2024 2:33 PM Pending Results Patient Have Any Pending Studies at Discharge: No Discharge Instructions Given to Patient (Per Discharging Provider) Ms. Heaton, You were hospitalized after having worsening leg infection, this was likely because the antibiotics did not cover the bacteria that was growing in your wound. We were able to get a culture of the wound to make sure the antibiotics are appropriate. Thankfully, after switching to the right antibiotics, you have done well and you wound is starting to improve. You will be transitioned to oral antibiotics, ciprofloxacin to take for 7 more days. The first dose is PM on 05/29. You will also need to follow up with the wound care center. They should call you with an appointment. If you do not hear from them by Sunday please call the number above to get scheduled for an appointment. Please elevate your leg when able. Keep the wound clean and dry and covered. Medication changes: * Ciprofloxacin 500mg twice a day - for 7 days, this is your antibiotic * STOP chlorthalidone - this was likely making you loose potassium and dropping your blood pressure. You will continue lasix. * Start spironolactone - this is also a diuretic but preserves the potassium * Stop Vit D supplement - your Vitamin D levels were too high. Contiuing the supplement could lead to toxicity. Given that we have changed your meds around you may be able to decrease the amount of potassium you take in the future. Continue to work with your PCP regarding this. CONTACT YOUR PRIMARY CARE PROVIDER if you experience any of the following: Shortness of breath or difficulty breathing Fevers or chills Feeling tired with normal activity or experiencing dizziness or fainting Difficulty following your treatment plan, or difficulty taking medications Calll wound care center - wound is getting worse - difficulty with changing dressing - lack of supplies CALL 911 OR GO TO THE EMERGENCY DEPARTMENT if you experience any of the following: Severe abdominal pain or nausea/vomiting Severe chest pain, or chest pain that radiates (moves) to your jaw or arm Sudden, severe shortness of breath or difficulty breathing Thank you for allowing us to participate in your care. Total Time Total Time Spent Total Time Spent (In Minutes): Time spent day of discharge 33 minutes including direct patient care, medication reconciliation, documentation, review of labs and images, and coordination of care. Discussed case with case management Coding Level of Care Code 81559 INP/OBS DISCH >30 MIN Diagnoses Cellulitis of left lower leg L03.116 Hypokalemia E87.6 H/O: HTN (hypertension) Z86.79 Vitamin D toxicity T45.2X1A
[2024-05-29] MEDS: PNEUMOCOCCAL VACCINE (PCV20) 20-VAL CONJ-DIP CRM/PF 0.5 ML SYR IM ONE (10:41)
== END 2024-05-29 13:45 | disposition home or self-care (01) | DRG 603 ==
LOC: ED 18:09 → 3N 21:33 → SUATTDRO 21:33 → 3N 22:01

== ENCOUNTER 2024-06-06 12:38 | Inpatient (IN) ==
--- NOTE | 2024-06-06 13:17 | Emergency Department Note ---
History of Present Illness General Chief complaint: Infection, Wound Stated complaint: INFECTION/WOUND/LT LEG Time Seen by Provider: 06/06/24 13:10 History of Present Illness Maximum Pain Intensity: 6 This is a 78-year-old female that presents to the emergency department via private vehicle with complaints of "left leg wound". The patient and she was referred by the wound clinic. She notes left leg wound growing Pseudomonas currently on oral Cipro. She was hospitalized here recently and discharged on oral Cipro. She had a follow-up today with the wound clinic and was referred in noting continuation of symptoms despite the antibiotics. She denies any fevers, chills, nausea or vomiting. Current discomfort 09/09. Home Medications Medication Instructions Recorded Confirmed Type aspirin 81 mg tablet,delayed 81 mg PO QAM 02/14/19 06/06/24 History release (Adult Low Dose Aspirin) furosemide 40 mg tablet 40 mg PO QAM 02/14/19 06/06/24 History multivitamin 1 tab PO HS 02/14/19 06/06/24 History rosuvastatin 40 mg tablet (Crestor) 40 mg PO HS 02/14/19 06/06/24 History conjugated estrogens 1.25 mg 1.25 mg PO DAILY 08/31/20 06/06/24 History tablet (Premarin) potassium chloride 20 mEq 40 meq PO QID 01/16/23 06/06/24 History tablet,extended release(part/cryst) calcium carbonate (Calcium 600) 600 mg PO BID 02/08/23 06/06/24 History finasteride 5 mg tablet 5 mg PO QAM 05/23/24 06/06/24 History ciprofloxacin HCl 500 mg tablet 500 mg PO BID #14 tabs 05/29/24 06/06/24 Rx spironolactone 25 mg tablet 12.5 mg (1/2 x 25 mg) PO DAILY #30 05/29/24 06/06/24 Rx tabs Allergies Allergy/AdvReac Type Severity Reaction Status Date / Time No Known Allergies Allergy Verified 06/06/24 15:13 Past Med/Surg History Problem List Vitamin D toxicity Acute post-traumatic wound infection (Acute) Cellulitis (Acute) Hypokalemia HLD (hyperlipidemia) Hx of deep venous thrombosis H/O: HTN (hypertension) Traumatic open wound of left lower leg (Acute) Venous stasis ulcers (Acute) Chronic venous insufficiency (Chronic) Deep vein thrombosis (DVT) (Acute) Medical History Coronary artery disease Cat bite Surgical History Status post endovenous radiofrequency ablation of saphenous vein Venoseal procedure done 2020 H/O bladder repair surgery Hx of CABG H/O: hysterectomy H/O hernia repair Family History Other No significant family history Social History Smoking Status: Never smoker Second Hand Exposure: No; Do You Dip or Chew Tobacco: No; Hx Alcohol Use: No Hx Substance Use: No Preferred Language: Greenlandic Communication Ability: Effective Visual Impairment: Limited Hearing Ability: Normal Marketing Programs Manager Required: No Beliefs That Will Affect Care: None marital status: Current Living Situation: Spouse Current Living Situation Comment: lives with the spouse current occupational status: unemployed How many Children do You have: 3 How many Children do You have Comment: 2 children are local, one may help with care as needed. Spouse also able to assist as needed. Feels Safe at Home: Yes Diet: regular during the past year weight has: remained stable Assistive Devices: None Review of Systems A total of 10 systems reviewed and were otherwise negative Physical Exam Vital Signs Vital Signs - 24 hr 06/06/24 12:44 06/06/24 14:53 06/06/24 16:05 Temperature 36.6 C Temperature Source Temporal Artery Scan Pulse Rate 82 87 Pulse Rate [Apical] 84 Respiratory Rate 18 20 Respiratory Effort / Characteristics Non-Labored Spontaneous Respiratory Depth Normal Respiratory Pattern Regular Blood Pressure 103/68 Blood Pressure [Left Arm] 115/62 Blood Pressure Mean 79 Blood Pressure Mean [Left Arm] 79 Pulse Oximetry 95 97 Oxygen Delivery Method Room Air Room Air Sepsis Recent Fever Within 48 Hours No Sepsis New/Unexplained Change in Mental Status No Sepsis Action Taken by Nursing No Action Required VITAL SIGNS - Vital signs and nursing notes were reviewed. Stable and afebrile. GENERAL -78-year-old female appearing her stated age who is in no acute distress. Communicates well with provider and answers questions appropriately. SKIN -chronic appearing ulcerative type wound to the left anterior pretibial soft tissues of similar diameter compared to previous imaging in the EMR. There is a small amount of yellowish dark discharge from the wound. There is surrounding erythema and mild soft tissue pretibial edema. No crepitus HEAD - NC/AT. LUNGS - CTA CARDIAC - RRR EXTREMITIES - No clubbing or peripheral cyanosis. Left lower extremity is appropriately warm and well-perfused. Skin is as above. Cap refill of all toes within normal limits. Left [place] pedis pulse within normal limits. +5/5 strength noted in UE/LE bilaterally. NEUROLOGIC - Cranial nerves grossly intact. PSYCH -alert, oriented and pleasant on exam Course Administered Medications Discontinued Medications Piperacillin Sod/Tazobactam Sod (Zosyn) 4.5 gm in 100 mls @ 200 mls/hr IV NOW ONE; Protocol Stop: 06/06/24 13:55 Last Infusion: 06/06/24 15:03 Dose: Infused Documented By: Admin: 06/06/24 13:45 Dose: 200 mls/hr Documented By: SIDRA Medical Decision Making Laboratory Data 06/06/24 13:17 06/06/24 13:17 Lab Results 06/06/24 Range/Units 13:17 WBC 7.72 (4.8-10.8) K/ul RBC 4.07 L (4.20-5.40) M/uL Hgb 13.5 (12.0-16.0) g/dl Hct 39.4 (37.0-47.0) % MCV 96.8 (80.0-100.0) fL MCH 33.2 (25.0-34.0) pg MCHC 34.3 (32.0-36.0) g/dL RDW Std Deviation 45.3 (36.4-46.3) fL RDW Coeff of Vanda 12.6 (11.5-14.5) % Plt Count 257 (130-400) K/uL MPV 10.0 (9.4-12.4) fL Immature Gran % (Auto) 0.3 % Neut % (Auto) 68.8 % Lymph % (Auto) 18.8 % [place] % (Auto) 10.5 % Eos % (Auto) 1.3 % Baso % (Auto) 0.3 % Neut # (Auto) 5.32 (1.40-6.50) K/uL Lymph # (Auto) 1.45 (1.20-3.40) K/uL [place] # (Auto) 0.81 H (0.11-0.59) K/uL Eos # (Auto) 0.10 (0.00-0.50) K/uL Baso # (Auto) 0.02 (0.00-0.20) K/uL Immature Gran # (Auto) 0.02 (0.01-0.20) K/uL Sodium 139 (136-145) mmol/L Potassium 4.5 (3.5-5.1) mmol/L Chloride 103 (98-107) mmol/L Carbon Dioxide 30 (21-32) mmol/L Anion Gap 6 (3-11) BUN 18 (6-23) mg/dl Creatinine 1.21 H (0.6-1.2) mg/dl Est Cr Clr Drug Dosing 28.0 ml/min eGFR 46.16 BUN/Creatinine Ratio 14.9 (10-20) Glucose 88 (70-99(Fasting)) mg/dl Calcium 11.0 H (8.6-10.3) mg/dl Total Bilirubin 0.4 (0.2-1.0) mg/dl AST 21 (13-39) U/L ALT 14 (7-52) U/L Alkaline Phosphatase 59 (34-104) U/L Total Protein 7.6 (6.0-8.3) gm/dl Albumin 4.1 (3.4-5.0) gm/dl Globulin 3.5 (2.5-4.0) gm/dl Albumin/Globulin Ratio 1.2 (0.9-2) Procalcitonin 0.04 (0-0.5) ng/ml MDM Narrative Patient was seen and evaluated as above in room D03B. Review was performed of triage nursing notes and vital signs. I did review pertinent previous visits and patient history. After obtaining a thorough history and physical examination the above work up was performed. Patient presents to us today for evaluation of continuation of the wound growing out Pseudomonas currently on oral Cipro. Patient while hospitalized was on Zosyn per infectious disease recommendations. I evaluated the wound today. It does appear similar but perhaps a bit worse than imaging as viewed/ uploaded in the EMR. IV Zosyn ordered. Laboratory studies also ordered. Blood culture added. Wound culture pending as obtained by the wound care center today. I did review the wound care note as well. Case discussed with the hospitalist service. Please refer to further documentation regarding her stay. GCS: 15 In the evaluation and treatment of this patient the following differential diagnoses were entertained: Cellulitis, abscess, necrotizing fasciitis, among others Impression & Plan Cellulitis of left leg Discharge Plan Visit Data Chief Complaint: Infection, Wound Stated Complaint: INFECTION/WOUND/LT LEG ED Provider: Fred Ray ED Midlevel Provider: Masoud Cowart Discharge Problem: Cellulitis of left leg Patient Disposition: Admitted As Inpatient Condition: Good Forms Stand Alone Forms: My [facility] [employer] Prescriptions Prescriptions: No Action aspirin [Adult Low Dose Aspirin] 81 mg tablet,delayed release (DR/EC) 81 mg PO QAM multivitamin tablet 1 tab PO HS furosemide 40 mg tablet 40 mg PO QAM rosuvastatin [Crestor] 40 mg tablet 40 mg PO HS calcium carbonate [Calcium 600] 600 mg calcium (1,500 mg) Tablet 600 mg PO BID Premarin 1.25 mg tablet 1.25 mg PO DAILY potassium chloride 20 mEq tablet,ER particles/crystals 40 meq PO QID finasteride 5 mg tablet 5 mg PO QAM spironolactone 25 mg Tablet 12.5 mg PO DAILY Qty: 30 0RF ciprofloxacin HCl 500 mg tablet 500 mg PO BID Qty: 14 0RF Rx Instructions: Start Date 06/02/24 x4 day supply Referrals Referrals: Amol Voss MD [Primary Care Provider] -
[2024-06-06 13:40] LABS: Basophils # (auto) 0.02 K/uL (0.00-0.20); Basophils % (auto) 0.3 %; Eosinophils % (auto) 1.3 %; Hematocrit (blood only) 39.4 % (37.0-47.0); Hemoglobin 13.5 g/dl (12.0-16.0); Immature Granulocytes # (auto) 0.02 K/uL (0.01-0.20); Immature Granulocytes % (auto) 0.3 %; Lymphocytes # (auto) 1.45 K/uL (1.20-3.40); Lymphocytes % (auto) 18.8 %; Mean Corpuscular Hemoglobin 33.2 pg (25.0-34.0); Mean Corpuscular Hgb Conc 34.3 g/dL (32.0-36.0); Mean Corpuscular Volume 96.8 fL (80.0-100.0); Monocytes # (auto) 0.81 K/uL (0.11-0.59); Monocytes % (auto) 10.5 %; Neutrophils # (auto) 5.32 K/uL (1.40-6.50); Neutrophils % (auto) 68.8 %; Platelet Count 257 K/uL (130-400); RDW Coefficient of Variation 12.6 % (11.5-14.5); RDW Standard Deviation 45.3 fL (36.4-46.3); Red Blood Count 4.07 M/uL (4.20-5.40); White Blood Count 7.72 K/ul (4.8-10.8)
[2024-06-06] MEDS: PIPERACILLIN/TAZOBACTAM 4.5 GM/100 ML BAG IV ONE (13:45)
--- NOTE | 2024-06-06 13:49 | Emergency Department Note ---
ED Visit Note Patient seen in conjunction with physician housing assistant HPI: Patient 78-year-old female presenting from wound clinic for worsening infection of the left lower extremity. Patient had culture performed recently showing Pseudomonas. Patient was recently admitted to the hospital 1 week prior and was on IV Zosyn and then transition to p.o. Cipro. Exam: 2+ dorsal pedis pulse intact sensation all 5 digits of the left foot. A&P: Patient to be admitted for IV antibiotics. Dx: Lower extremity infected wound Dispo: Admission I agree with the physician assistants work-up and treatment plan. Please see their note for more detailed exam findings. I performed a substantive portion of the visit including all aspects of medical decision making. .
[2024-06-06 13:58] LABS: Albumin Globulin Ratio 1.2 (0.9-2); Albumin Level 4.1 gm/dl (3.4-5.0); BUN Creatinine Ratio 14.9 (10-20); Bilirubin,Total 0.4 mg/dl (0.2-1.0); Globulin 3.5 gm/dl (2.5-4.0); Potassium 4.5 mmol/L (3.5-5.1); Total Protein 7.6 gm/dl (6.0-8.3)
--- NOTE | 2024-06-06 15:42 | History & Physical Report ---
Date of Service June 06, 2024 Assessment & Plan (1) Cellulitis: Plan: Recurrent due to nonhealing wound on LLE - Admit to med/surg - VS per unit protocol - Regular diet - Had extensive w/u last admission, seen by vascular, had venous and arterial dopplers, appeared to have adequate blood flow for wound healing - Pt had cultures on 05/23 that grew pseudomonas, ID consulted and recommended Zosyn based on cultures and was de-escalated to cipro - Will resume Zosyn, reconsult ID, appreciate assistance - Cultures collected in wound clinic today by Sosa Parks - will need to follow up on this (2) Acute post-traumatic wound infection: Plan: Nonhealing with polymicrobial infection - Continue Zosyn as outlined above - 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 Will also apply Santyl to the wound daily as debridement was poorly tolerated due to pain. (3) H/O: HTN (hypertension): Plan: Chronic - BP well controlled - Continue lasix and spironolactone - Reduced potassium supplementation to 20meq daily (recorded as 40meq QID in med rec) (4) HLD (hyperlipidemia): Plan: Chronic - Continue rosuvastatin Plan Above plan of care has been d/w Dr. Leahy who will also see and evaluate this patient. Further orders to be implemented as clinically warranted by attending physician. History of Present Illness Chief Complaint: Worsening redness left leg Primary Care Provider: Amol Voss MD Mary Carmen is a 78 yo F with a pmhx of HTN, HLD, chronic venous stasis/venous insufficiency, and h/o DVT who presents to the ER today from wound care clinic due to worsening redness and swelling of LLE due to nonhealing wound. Patient had initially presented to the ER on 05/12 following hitting her leg with her luggage. Wound cultures collected in the ER grew E. coli, Peptostreptococcus anaerobius and Bacteroides fragilis. Hospitalists were consulted and she was discharged on a course of Augmentin. She noted that while on the medication, her pain and redness worsened and she returned to the ER on 05/23 where she was admitted and placed on empiric broad spectrum IV antibiotic therapy. She had a LLE CT w/ and w/o contrast that showed moderate to severe cellulitis but no drainable abscess or evidence of osteomyelitis. Repeat cultures grew Pseudomonas. At that time, ID was consulted and recommended Zosyn. Abx were changed to reflect this. She was evaluated by vascular surgery (Dr. Bray) and had both venous and arterial dopplers performed. Arterial doppler noted high- grade stenosis of the left popliteal artery posterior to the knee without occlusion but ultimately blood flow was deemed adequate for wound healing and no further intervention was needed. She was discharged on 05/29 on Cipro to complete orally at home. She has been following with the wound clinic where she was seen today and noted to have worsening redness, swelling and a film over the wound that she describes as looking like "lard." She underwent superficial debridement by provider and another wound culture was collected. She is nearly completed with her Cipro and subsequently, wound care recommended she return to the ER for IV abx. She is currently resting comfortably in her ER bay, has no complaints other than feeling cold. No pain in LLE and she denies fever. Labs are unremarkable, no leukocytosis, procalcitonin normal. She was given a dose of Zosyn 4.5g in the ER and has been referred to hospital medicine team for admission. Allergies Allergy/AdvReac Type Severity Reaction Status Date / Time No Known Allergies Allergy Verified 06/06/24 15:13 Home Medications Medication Instructions Recorded Confirmed Type aspirin 81 mg tablet,delayed 81 mg PO QAM 02/14/19 06/06/24 History release (Adult Low Dose Aspirin) furosemide 40 mg tablet 40 mg PO QAM 02/14/19 06/06/24 History multivitamin 1 tab PO HS 02/14/19 06/06/24 History rosuvastatin 40 mg tablet (Crestor) 40 mg PO HS 02/14/19 06/06/24 History conjugated estrogens 1.25 mg 1.25 mg PO DAILY 08/31/20 06/06/24 History tablet (Premarin) potassium chloride 20 mEq 40 meq PO QID 01/16/23 06/06/24 History tablet,extended release(part/cryst) calcium carbonate (Calcium 600) 600 mg PO BID 02/08/23 06/06/24 History finasteride 5 mg tablet 5 mg PO QAM 05/23/24 06/06/24 History spironolactone 25 mg tablet 12.5 mg (1/2 x 25 mg) PO DAILY #30 05/29/24 06/06/24 Rx tabs cefpodoxime 200 mg tablet 400 mg (2 x 200 mg) PO BID #30 tabs 06/11/24 Rx doxycycline hyclate 100 mg capsule 100 mg PO BID 7 days #14 caps 06/11/24 Rx Past Med/Surg History Problem List (Updated 06/12/24 @ 00:07 by Rachael Saravia) Peripheral vascular disease HLD (hyperlipidemia) Hx of deep venous thrombosis Chronic venous insufficiency (Chronic) Deep vein thrombosis (DVT) (Acute) Medical History Coronary artery disease Cat bite Surgical History Status post endovenous radiofrequency ablation of saphenous vein Venoseal procedure done 2020 H/O bladder repair surgery Hx of CABG H/O: hysterectomy H/O hernia repair Family History Other No significant family history Social History Smoking Status: Never smoker Second Hand Exposure: No; Do You Dip or Chew Tobacco: No; Hx Alcohol Use: No Hx Substance Use: No Preferred Language: Yakut Communication Ability: Effective Visual Impairment: Limited Hearing Ability: Normal Dental Hygienist Required: No Beliefs That Will Affect Care: None marital status: Current Living Situation: Spouse Current Living Situation Comment: Lives with . current occupational status: unemployed How many Children do You have: 3 How many Children do You have Comment: 2 children are local, one may help with care as needed. Spouse also able to assist as needed. Feels Safe at Home: Yes Diet: regular during the past year weight has: remained stable Assistive Devices: None Review of Systems 2 Review of Systems: All systems reviewed and are unremarkable except as noted in HPI and below. Denies fever, chills, fatigue, headache, nasal congestion, sore throat, cough, chest pain, shortness of breath, palpitations, orthopnea, PND, abdominal pain, n/v/d, constipation, dysuria, hematuria, frequency, back pain, joint pain or swelling, easy bruising or bleeding, skin lesions or rashes. Physical Exam 2 Physical Exam: GENERAL: 78 yo well-nourished elderly F. No distress. LUNGS: Clear to auscultation bilaterally. No accessory muscle use. No W/R/R. CARDIOVASCULAR: Regular rate and rhythm +murmur. No JVD. ABDOMEN: Soft, non-tender and non-distended. BS normoactive x 4 quad. EXTREMITIES: No edema. Non-tender. Peripheral pulses +2/4. NEUROLOGIC: A&O x3. No focal neurological deficits. CN II-XII grossly intact. PSYCHIATRIC: Cooperative. Appropriate mood and affect. SKIN: Left leg erythematous, warm and tender to palp. Fresh dressing placed over wound following initial ER eval Results & Data Results & Data Vital Signs (Past 12 Hours) Vital Signs Temp Pulse Pulse Resp BP BP Pulse Ox 06/06/24 14:53 84 20 115/62 97 06/06/24 12:44 36.6 C 82 18 103/68 95 O2 Del Method 06/06/24 14:53 Room Air 06/06/24 12:44 Room Air Laboratory Results 06/06/24 13:17 06/06/24 13:17 Code Status & VTE Plan Code Status Full code - d/w pt Supervising Physician Co-Signing Physician Notes I personally saw and examined the patient. I independently reviewed the labs, EKG, imaging, problem list, medication list, past medical history and family history. I verified all ty points and agree with Jeannie Layton PA-C with the following exceptions and/or additions: 78 year old female presents to the ER with worsening left leg swelling and erythema after switching from IV Zosyn to ciprofloxacin as outpatient. O/E HS RRR, systolic murmur, Chest CTAB, Abdo SNT, left leg erythema and swelling surrounding ulcer from ankle to knee A/P Cellulitis - improving on IV Zosyn last admission but worsening on ciprofloxacin. Polymicrobial wound culture on prior left leg. Will place back on Zosyn. Follow up repeat wound culture. PG Care Time/CCT Total # of Minutes Spent Total Time Spent with Patient: Total time spent is greater than 50% in coordination of care (as documented) at patient's floor/unit and/or counseling patient: 76 minutes Coding Level of Care Code 61326 INT INP/OBS CARE 3/75MIN Diagnoses Cellulitis L03.116 Laterality: left Site of cellulitis: extremity Site of cellulitis of extremity: lower extremity Acute post-traumatic wound infection T14.8XXA; L08.9 Encounter type: initial encounter H/O: HTN (hypertension) Z86.79 HLD (hyperlipidemia) E78.5 (1) Cellulitis Laterality: left Site of cellulitis: extremity Site of cellulitis of extremity: lower extremity Qualified Code(s): L03.116 - Cellulitis of left lower limb (2) Acute post-traumatic wound infection Encounter type: initial encounter Qualified Code(s): T14.8XXA - Other injury of unspecified body region, initial encounter; L08.9 - Local infection of the skin and subcutaneous tissue, unspecified
[2024-06-06] MEDS ORDERED: POLYETHYLENE (MIRALAX) 17 GM PACK PO PRN (18:50)
[2024-06-06] MEDS ORDERED: MAGNESIUM HYDROXIDE SUSP 30 ML UDC PO PRN (18:50)
[2024-06-06] MEDS ORDERED: ONDANSETRON INJ 2 MG/ML 2 ML VIAL IV PRN (18:50)
[2024-06-06] MEDS: PIPERACILLIN/TAZOBACTAM 4.5 GM/100 ML BAG IV SCH (21:52)
[2024-06-06] MEDS: ENOXAPARIN INJ 40 MG/0.4 ML SYR SQ SCH (21:53)
[2024-06-06] MEDS: ROSUVASTATIN CALCIUM 20 MG TAB PO SCH (21:54)
--- OUTSIDE RECORDS SUMMARY | 2024-06-07 02:49 | External Medical Summary | Continuity of Care Document ---
Author Name Unknown Organization [address] Address [address] [place] [address] [place], [place] [id number] Care Team Providers Care Sourcing Associate Name Role Phone Amol Voss Primary Care Physician [phone] Encounter [facility] [id number] Date(s): 06/02/24 - 06/02/[address] [place] [address] [phone] Encounter Diagnosis Hypokalemia(Discharge Diagnosis) - 06/02/24 Cellulitis, leg(Discharge Diagnosis) - 06/02/24 Discharge Disposition: Home or Self Care Attending Physician: MD Bustos Ravishankar E Referring Physician: MD Bustos Ravishankar E Encounter Type: Clinic Allergies, Adverse Reactions, Alerts No Known Allergies Assessment and Plan Extracted from: Title:FCM - TCM LLE cellulitis Author:MD Villar Margaret Date:06/02/24 Cellulitis, leg Acute w/ systemic symptoms or complicated injury Goal: Resolution Data: unique tests reviewed: _wound culture, CBC, CMP, CT LLE, venous and arterial doppler studies, H&P, d/c summary Plan: Wound culture growing pseudomonas. Was sent on 7 days oral cipro for 10 days of pseudomonas coverage. Will extend abx course to 14 days total. Patient to see wound clinic on Sunday. Further abx to be decided at that time. Will f/u in 2 weeks for a wound check, sooner if needed. Return precautions given. Hypokalemia Chronic condition not at goal/exacerbated/progressive/side effects of treatment Goal: Resolution Data: unique tests ordered: _BMP Plan: Patient with iatrogenic hypokalemia to 2.4 likely d/t loop diuretic use. Chlorthalidone d/c on discharge and K supplementation increased from 6 tabs daily to 8 tabs daily. Patient was started on spironolactone as a potassium sparing diuretic. Was to continue with furosemide. Recheck potassium level and titrate supplementation as indicated. Patient to f/u in 2 weeks, sooner if needed. Transitional Care Visit Plan: Initial transitional care contact documentation reviewed and was made on 05/30. Medical Decision Making: x Moderately or Highly Complex (seen within 14 days of discharge) (88632) _ Highly Complex (seen within 7 days of discharge) (91999) Medication Reconciliation: x Medication list reconciled Referrals: wound clinic Community Resources identified for patient/family: None needed Durable medical equipment: None Patient Education: x Topics discussed: hypokalemia, wound care Follow-up visit: 2 weeks Other plans: Repeat BMP and extend abx as detailed above. Immunizations Given and Recorded Vaccine Date Status Refusal Reason influenza virus vaccine, inactivated 01/03/24 Give n influenza virus vaccine, inactivated 12/09/19 Lobito rded SARS-CoV-2 mRNA ([id number]) 1 08/16/21 Recorded SARS-CoV-2 (COVID-19) mRNA BNT-162b2 vax 2 12/29/20 Recorded SARS-CoV-2 (COVID-19) mRNA BNT-162b2 vax 3 05/29/20 Recorded SARS-CoV-2 (COVID-19) mRNA BNT-162b2 vax 4 05/08/20 Recorded zoster vaccine, inactivated 09/20/17 Recorded tetanus toxoids-diphtheria, Td (Adult) 05/23/16 Gi indira zoster vaccine live 05/20/14 Recorded 1Result Comment: 2022-01-05: Historical information-source unspecified 2Result Comment: 2022-01-05: Historical information-source unspecified 3Result Comment: 2022-01-05: Historical information-source unspecified 4Result Comment: 2022-01-05: Historical information-source unspecified Medications Aspirin Low Dose Start: 04/20/15 10:22:00 AM EST, See Instructions, 81 mg PO every other day Start Date: 04/20/15 Status: Ordered Repeat number: 1 biotin Start: 05/27/20 9:24:00 AM EST Start Date: 05/27/20 Status: Ordered Repeat number: 1 Calcium 600+D Start: 08/24/10 10:34:00 AM EDT, 1 tab, PO, Daily Start Date: 08/24/10 Status: Ordered Repeat number: 1 ciprofloxacin 500 mg oral tablet Start: 06/02/24 2:05:00 PM EST, 1 tab, PO, q12h, Disp# 8 tab, X 4 day, Refills: 0, Stop: 06/06/24 2:05:00 PM EST, Pharmacy: [facility] [id number] Start Date: 06/02/24 Stop Date: 06/06/24 Status: Ordered Quantity: 8.0 Unit: tab Repeat number: 1 Crestor 40 mg oral tablet Start: 02/04/24 3:05:00 PM EST, 1 tab, PO, Daily, Disp# 90 tab, Refills: 3, Pharmacy: [facility] [id number] Start Date: 02/04/24 Status: Ordered Quantity: 90.0 Unit: tab Repeat number: 4 ferrous sulfate Start: 08/24/10 10:33:00 AM EDT, 325 mg =, PO, Daily, tab Start Date: 08/24/10 Status: Ordered Repeat number: 1 finasteride 5 mg oral tablet Start: 04/30/24 12:15:00 PM EST, 1 tab, PO, Daily, Disp# 30 tab, Refills: 2, 1 pill a day for hair loss, Note to Pharmacy: please cancel the minoxidil prescription, Pharmacy: [facility] [id number] Start Date: 04/30/24 Status: Ordered Quantity: 30.0 Unit: tab Repeat number: 3 Indication: Other specified nonscarring hair loss Iron Folate Plus Start: 02/06/24 3:05:00 PM EST Start Date: 02/06/24 Status: Ordered Repeat number: 1 ketoconazole 2% topical shampoo Start: 04/30/24 12:16:00 PM EST, 1 appl, topical, Daily, Disp# 120 mL, Refills: 3, lather, let sit 10 minutes then rinse, safe to do daily, but wash scalp 2-3 times per week., Note to Pharmacy: pleasecancel minoxidil prescription, Pharmacy: [facility] [id number] Start Date: 04/30/24 Status: Ordered Quantity: 120.0 Unit: mL Repeat number: 4 Indication: Other specified nonscarring hair loss Klor-Con M20 oral tablet, extended release Start: 03/14/24 4:06:00 PM EST, 2 tab, PO, qid, Disp# 240 tab, Refills: 4, Pharmacy: [id number] Start Date: 03/14/24 Stop Date: 08/11/24 Status: Ordered Quantity: 240.0 Unit: tab Repeat number: 5 multivitamin Start: 08/24/10 10:34:00 AM EDT, 1 tab, PO, Daily Start Date: 08/24/10 Status: Ordered Repeat number: 1 Premarin 1.25 mg oral tablet Start: 01/03/24 10:00:00 AM EDT, See Instructions, Disp# 90 tab, Refills: 3, Take one (1) tablet(s) daily for menopausals ymptoms, Pharmacy: [id number] Start Date: 01/03/24 Status: Ordered Quantity: 90.0 Unit: tab Repeat number: 4 spironolactone 25 mg oral tablet Start: 06/02/24 1:43:00 PM EST, 1 tab, PO, Daily Start Date: 06/02/24 Status: Ordered Repeat number: 1 Mental Status 06/02/24 Barriers to Learning one year None evide nt Mandatory Health Literacy Documentation Yes Health Literacy Communication Barriers N ever Primary Language Nigerian Problem List Condition Confirmation Course Effective Dates Status H ealth Status Informant Coronary arteriosclerosis Confirmed Active Difficulty swallowing Confirmed Active 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 Active History of basal cell carcinoma (BCC) of skin Confirmed Active Hyperlipidemia Confirmed Active Hypokalemia Confirmed Active Leg wound, right Confirmed Active Diagnosis Diagnosis Type Effective Dates Health Status inical Service Informant Cellulitis, leg Discharge Diagnosis 06/02/24 Non-Specified Hypokalemia Discharge Diagnosis 06/02/24 Non-Specified Procedures Procedure Date Related Diagnosis Body Site Status Shave biopsy and cauterization of skin 10/08/23 Completed Shave biopsy and cauterization of skin 04/05/22 [...] to oldest [Reference Range]: 1 Patient Weight 61 kg (06/02/24 1:46 PM) Heart Rate 67 bpm (06/02/24 1:46 PM) Respiratory Rate 20 br/min (06/02/24 1:46 PM) Blood Pressure 95/65mmHg (06/02/24 1:46 PM) Social History Social History Type Response Tobacco Former smoker, Cigar ettes 1 Smoking Status Never smoked cigaret sunny Sex Female Sex Representation Female (finding) 1Quit smoking 10 years ago FCM Outpt Note * MD Akash, Tarun Travis: TIERA Villar MD, Arlet: PERFORM Event Display: FCM Outpt Note Authored Date: [id number] Assessment/Plan Cellulitis, leg Acute w/ systemic symptoms or complicated injury Goal: Resolution Data: unique tests reviewed: _wound culture, CBC, CMP, CT LLE, venous and arterial doppler studies, H&P, d/c summary Plan: Wound culture growing pseudomonas. Was sent on 7 days oral cipro for 10 days of pseudomonas coverage. Will extend abx course to 14 days total. Patient to see wound clinic on Sunday. Further abx to be decided at that time. Will f/u in 2 weeks for a wound check, sooner if needed. Return precautions given. Hypokalemia Chronic condition not at goal/exacerbated/progressive/side effects of treatment Goal: Resolution Data: unique tests ordered: _BMP Plan: Patient with iatrogenic hypokalemia to 2.4 likely d/t loop diuretic use. Chlorthalidone d/c on discharge and K supplementation increased from 6 tabs daily to 8 tabs daily. Patient was startedon spironolactone as a potassium sparing diuretic. Was to continue with furosemide. Recheck potassium level and titrate supplementation as indicated. Patient to f/u in 2 weeks, sooner if needed. Transitional Care Visit Plan: Initial transitional care contact documentation reviewed and was made on 05/30. Medical Decision Making: x Moderately or Highly Complex (seen within 14 days of discharge) (05148) _ Highly Complex (seen within 7 days of discharge) (85315) Medication Reconciliation: x Medication list reconciled Referrals: wound clinic Community Resources identified for patient/family: None needed Durable medical equipment: None Patient Education: x Topics discussed: hypokalemia, wound care Follow-up visit: 2 weeks Other plans: Repeat BMP and extend abx as detailed above. Attestation ATTENDING PHYSICIAN ATTESTATION: I saw the patient and confirmed ty portions of the history and physical exam and agree with the resident impression and plan as above. Dr. Tarun Bustos MD Chief Complaint TCM - LLE cellulitis, taking PO abx - still very swollen and painful History of Present Illness 78 y/o here for a hospital follow up. Patient was hospitalized 05/23-05/29 for pseudomonas cellulitis of the LLE. She injured her left shinon a luggage cart earlier in May. She was seen in the ED and sent out on doxy and Keflex. Symptoms then worsened prompting evaluation in the ED. Patient was treated with a variety antibiotics prior to culture results. Zosyn start 05/26 and transitioned to Cipro prior to discharge for 10 days total of antibiotics. Patient reports little to no improvement and possible worsening of symptoms. Continued swelling and redness with associated warmth. Patient continues to have foul smelling discharge from the woundand pain. No fevers or chills. Otherwise feeling well. Has wound appointment 06/06. Physical Exam Vitals & Measurements HR: 67 (Monitored) RR: 20 BP: 95/65 SpO2: 98% WT: 61.000 kg (Dosing) WT: 61 kg PHQ2 Data (Data Documented on:06/02/2024 13:44) Emotional health assessment NEGATIVE Gen: well appearing patient in NAD HEENT: AT NC CV: clinically well perfused Resp: no increased work of breathing Abd: non-distended MSK: no obvious deformities Skin: LLE erythematous and edematous with painful pitting edema to the upper calf, wound dressed without strike through, slight warmth Psych: appropriate mood and affect Neuro: alert and oriented Problem List/Past Medical History Ongoing Coronary arteriosclerosis Difficulty swallowing Female pattern hair loss History of basal cell carcinoma (BCC) of skin Hyperlipidemia Hypokalemia Leg wound, right Resolved Breath shortness Edema Neoplasm of uncertain behavior of skin Osteoporosis Procedure/Surgical History •Shave biopsy and cauterization of skin| Service Date: 10/08/2023•Shave biopsy and cauterization of skin| Service Date: 04/05/2022•Shave biopsy and cauterization of skin| Service Date: 11/25/2019•DXA of axial and appendicular skeleton| Service Date: 01/17/2018•Mammogram| Service Date: 12/14/2015•Mohs surgery| Service Date: 09/14/2015•Mammogram| Service Date: 06/09/2015•DEXA - Dualenergy X-ray photon absorptiometry| Service Date: 06/03/2015•Mammogram| Service Date: 06/03/2015•PFT - lung volume testing| Service Date: 09/01/2014•Hernia•Hysterectomy•Bypass Medications aspirin(Aspirin Low Dose), See Instructions biotin calcium and vitamin D combination(Calcium 600+D), 1 tab, PO, Daily ciprofloxacin(ciprofloxacin 500 mg oral tablet), 500 mg= 1 tab, PO, q12h conjugated estrogens(Premarin 1.25 mg oral tablet), See Instructions, 3 refills ferrous sulfate, 325 mg, PO, Daily finasteride(finasteride 5 mg oral tablet), 5 mg= 1 tab, PO, Daily, 2 refills ketoconazole topical(ketoconazole 2% topical shampoo), 1 appl, topical, Daily, 3 refills multivitamin, 1 tab, PO, Daily multivitamin with iron(Iron Folate Plus) potassium chloride(Klor-Con M20 oral tablet, extended release), 40 mEq= 2 tab, PO, qid, 4 refills rosuvastatin(Crestor 40 mg oral tablet), 40 mg= 1 tab, PO, Daily, 3 refills spironolactone(spironolactone 25 mg oral tablet), 25 mg= 1 tab, PO, Daily Allergies NKA Social History Smoking Status Never smoked cigarettes Tobacco - Denies Tobacco Use Use:Former smoker Type:Cigarettes - Comments: Quit smoking 10 years ago Intake ([place]) Smoking History Cigarette smoker: Never smoked cigarettes Tobacco Product Use: Never used other tobacco products Family History Heart attack: Father and Sister. Health Status Family Member(s) Immunizations Vaccine Date Status influenza virus vaccine, inactivated 01/03/2024 Given SARS-CoV-2 mRNA ([id number]) 08/16/2021 Recorded Comments : 2022-01-05: Historical information-source [...] vaccine live 05/20/2014 Recorded Recommendations Health Maintenance Pending (in the next year) Due Adult Social Determinants of Health Screening due 06/02/24 Unknown Frequency Hepatitis C Screening due 06/02/24 One-time only Medicare Annual Wellness Visit due 06/02/24 and every 1 year Pneumococcal Vaccine Older Adults due 06/02/24 One-time only Seasonal COVID 19 Vaccine due 06/02/24 Unknown Frequency Shingles Vaccine due 06/02/24 One-time only Due In Future Adult Influenza Vaccine not due until 09/30/24 and every 1 year Satisfied (in the past 1 year) Satisfied Adult Influenza Vaccine on 01/03/24. Satisfied by DANIEL Luong Carli Body Mass Index on 06/28/23. Satisfied by DANIEL Vargas Angela Electronic Signature on File Electronically Reviewed/Signed by: Arlet Villar MD Author Signature Dt/Tm:06/02/2024 02:52 PM Resident Department of Family Medicine Electronically Reviewed/Signed by: Tarun Bustos MD Cosigner Signature Dt/Tm: 06/02/2024 03:10PM Department of Family Medicine MP Patient Care team information Care Team Personnel Name: MD Shanika, Amol Medina Position: Physician - Internal Med Member Role: Primary Care Provider Address: [address] [place] [address] Telecom: [phone] Care Team Related Persons Name: Sabino GIVENS Insurance Providers Guarantor name: ARGENTINA GIVENS Health Plan Information #: 1 Payer: MEDICARE Member Number: [id number] Policy Number: NA Group Number: NA Health Plan Information #: 2 Payer: [employer] Member Number: [id number] Policy Number: NA Group Number: [id number]"
[2024-06-07] MEDS: ACETAMINOPHEN 325 MG TAB PO PRN (05:23)
[2024-06-07 06:28] LABS: Basophils # (auto) 0.02 K/uL (0.00-0.20); Basophils % (auto) 0.4 %; Eosinophils # (auto) 0.09 K/uL (0.00-0.50); Eosinophils % (auto) 1.7 %; Hematocrit (blood only) 33.9 % (37.0-47.0); Hemoglobin 11.1 g/dl (12.0-16.0); Immature Granulocytes # (auto) 0.02 K/uL (0.01-0.20); Immature Granulocytes % (auto) 0.4 %; Lymphocytes # (auto) 1.47 K/uL (1.20-3.40); Lymphocytes % (auto) 27.2 %; Mean Corpuscular Hemoglobin 31.8 pg (25.0-34.0); Mean Corpuscular Hgb Conc 32.7 g/dL (32.0-36.0); Mean Corpuscular Volume 97.1 fL (80.0-100.0); Mean Platelet Volume 9.9 fL (9.4-12.4); Monocytes # (auto) 0.76 K/uL (0.11-0.59); Monocytes % (auto) 14.1 %; Neutrophils # (auto) 3.04 K/uL (1.40-6.50); Neutrophils % (auto) 56.2 %; Platelet Count 188 K/uL (130-400); RDW Coefficient of Variation 12.9 % (11.5-14.5); RDW Standard Deviation 45.9 fL (36.4-46.3); Red Blood Count 3.49 M/uL (4.20-5.40)
[2024-06-07 07:19] LABS: BUN Creatinine Ratio 14.2 (10-20); Calcium 8.9 mg/dl (8.6-10.3); Creatinine Clr Calc Pharmacy 31.9 ml/min; Potassium 3.6 mmol/L (3.5-5.1)
--- NOTE | 2024-06-07 08:19 | Hospitalist Progress Note ---
Date of Service June 07, 2024 Assessment & Plan (1) Cellulitis: Plan: 78yo female with admission for progression/worsening cellulitis to her LLE despite abx treatment from hospitalization from 05/23-05/29 as seen by wound center for debridement and cx pending (GS w/ moderate GNB at present) and was on Zosyn per ID and discharged on Cipro to complete the course (noting would not cover anaerobes) * cx 05/12 w/ ecoli, peptostrep, bacteroides * cx hospitalization 05/23 with pseudomonas Zosyn IV continued given prior cx WBC wnl. Afebrile. Blood cultures pending ID consult pending Wound RN consult placed but did place instructions for dressing changes in meantime w/ supplies brought from wound center Elevation encouraged Toradol 10mg IV x 1 for pain, monitor/continue as needed Did message vascular (Dr Bray) if needed if not improving over weekend given prior reduction in MARJORIE but blood flow on exam does appear adequate and remains on ASA, Lovenox SQ for DVT prophlaxis Lasix 40mg daily with spironolactone 12.5mg PO daily for assistance w/ edema Monitor labs/exam. F/u Cx from wound center 06/06 (2) Acute post-traumatic wound infection: Plan: Nonhealing with polymicrobial infection and remains on Zosyn IV for now and cxs pending Wound RN consult placed but will not see over weekend. Has supplies w/ acetic acid and santyl in room and have ordered daily dressing changes in meantime. Diuretics for edema/Toradol for pain as above and will continue to monitor Will need ongoing f/u with wound center (3) H/O: HTN (hypertension): Plan: Chronic and well maintained on lasix/spironolactone and was recently discontinued on her chlorthalidone. Home Kcl was reduced to 20meq once daily given K 4s on admission but w/ 3.5 and prior lows have increased 20mg to TID (was on 40 QID) and will monitor in AM/adjust as needed. Prior renin/brandi levels sent and renin activity 24 and elevated (was obtained prior to starting aldactone) -- consider nephrology f/u at dc Monitor (4) HLD (hyperlipidemia): Plan: Chronic and remains on crestor Plan DVT proph: lovenox SQ while inpatient Dispo: continued inpatient stay on IV abx and monitoring cultures. Likely inpatient until at least Sunday pending course and will need ongoing f/u with wound center at discharge Admission and Anticipated Discharge Date Admission Date: June 06, 2024 Supervising Physician Co-Signing Physician Notes The patient was not seen by me. The chart was reviewed. Case discussed with DEMAR Londono. Agree with assessment and plan Subjective Eval this morning, sitting up in the chair. Leg dressed, central wound without significant "crisco" looking appearance. Still has pain/edema but much improved from last admission. Toradol IV x 1 for pain/monitoring. Discussed ID consult pending and vascular notified if needed. Cx from wound center pending and will follow but remains on IV antibiotics at this time. She notes has liquid and cream from wound center to apply. Will follow up on instructions and have nursing do over weekend for now. K inc to TID, encouraged elevation. Physical Exam 2 Physical Exam: General: 78 yo female sitting up in recliner, NAD, reporting pain to her leg but improved from admission Head atraumatic normocephalic, mmm, trachea midline Resp: even/unlabored, no w/c/r, on room air CV: RRR, no significant m/r/g, pulses present GI: +BS, soft/NT no bojorquez MSK/Neuro: nonfocal, not confused, answering questions appropriately Skin/Ext: LLE with dressing in place, no significant drainage from anterior lesion, IMPROVEMENT in cellulitis/edema and much less warm but remains tender -- encouraged to keep elevated Psych: AOx3, cooperative with exam Results & Data Results & Data Vital Signs (Past 12 Hours) Vital Signs Temp Pulse Pulse Resp BP Pulse Ox O2 Del Method 06/06/24 21:15 36.7 C 84 16 127/77 98 Room Air 06/06/24 21:15 36.7 C 84 16 127/77 98 Room Air 06/06/24 20:24 77 16 103/55 L 96 Room Air Laboratory Results 06/07/24 05:55 06/07/24 05:55 Procal 0.04 LFTs wnl Mag 2.0 PG Care Time/CCT Total # of Minutes Spent Total Time Spent with Patient: Total time spent is greater than 50% in coordination of care (as documented) at patient's floor/unit and/or counseling patient: Coding Level of Care Code 31695 SUB INP/OBS CARE 50MIN Diagnoses Cellulitis L03.116 Laterality: left Site of cellulitis: extremity Site of cellulitis of extremity: lower extremity Acute post-traumatic wound infection T14.8XXA; L08.9 Encounter type: initial encounter H/O: HTN (hypertension) Z86.79 HLD (hyperlipidemia) E78.5 (1) Cellulitis Laterality: left Site of cellulitis: extremity Site of cellulitis of extremity: lower extremity Qualified Code(s): L03.116 - Cellulitis of left lower limb (2) Acute post-traumatic wound infection Encounter type: initial encounter Qualified Code(s): T14.8XXA - Other injury of unspecified body region, initial encounter; L08.9 - Local infection of the skin and subcutaneous tissue, unspecified
[2024-06-07] MEDS: ASPIRIN 81 MG ECTAB PO SCH (08:37)
[2024-06-07] MEDS: FUROSEMIDE 40 MG TAB PO SCH (08:37)
[2024-06-07] MEDS: ESTROGENS, CONJUGATED 0.625 MG TAB PO SCH (08:37)
[2024-06-07] MEDS: FINASTERIDE 5 MG TAB PO SCH (08:37)
[2024-06-07] MEDS: POTASSIUM CHLORIDE CRTAB 20 MEQ TABCR PO SCH ×2 (08:38→14:44)
[2024-06-07] MEDS: SPIRONOLACTONE 12.5 MG TAB PO SCH (08:38)
[2024-06-07] MEDS ORDERED: ENOXAPARIN INJ 40 MG/0.4 ML SYR SQ SCH (09:00)
[2024-06-07] MEDS ORDERED: POTASSIUM CHLORIDE CRTAB 20 MEQ TABCR PO SCH (09:00)
[2024-06-07] MEDS: KETOROLAC TROMETHAMINE 15 MG/ML VIAL IV ONE (10:34)
[2024-06-07] MEDS: COLLAGENASE OINT 30 GM TUBE EXT SCH (11:13)
[2024-06-07] MEDS ORDERED: oxyCODONE HCL IR 5 MG TAB (IMMEDIATE RELEASE) PO PRN (14:34)
[2024-06-07] MEDS ORDERED: KETOROLAC TROMETHAMINE 15 MG/ML VIAL IV PRN (15:06)
[2024-06-08 06:51] LABS: Hemoglobin 11.1 g/dl (12.0-16.0); Mean Corpuscular Hemoglobin 31.7 pg (25.0-34.0); Mean Corpuscular Hgb Conc 32.6 g/dL (32.0-36.0); Mean Corpuscular Volume 97.1 fL (80.0-100.0); Platelet Count 182 K/uL (130-400); RDW Coefficient of Variation 12.8 % (11.5-14.5); White Blood Count 5.44 K/ul (4.8-10.8)
[2024-06-08 07:11] LABS: BUN Creatinine Ratio 14.6 (10-20); Calcium 8.3 mg/dl (8.6-10.3); Potassium 3.5 mmol/L (3.5-5.1)
--- NOTE | 2024-06-08 10:49 | Hospitalist Progress Note ---
Date of Service June 08, 2024 Assessment & Plan (1) Cellulitis: Plan: 78yo female with admission for progression/worsening cellulitis to her LLE despite abx treatment from hospitalization from 05/23-05/29 as seen by wound center for debridement and cx pending (GS w/ moderate GNB at present) and was on Zosyn per ID and discharged on Cipro to complete the course (noting would not cover anaerobes) * cx 05/12 w/ ecoli, peptostrep, bacteroides * cx hospitalization 05/23 with pseudomonas Zosyn IV continued given prior cx WBC wnl. Afebrile. Blood cultures pending ID consult pending Wound RN consult placed but did place instructions for dressing changes in meantime w/ supplies brought from wound center Elevation encouraged Toradol 10mg IV x 1 for pain, monitor/continue as needed Did message vascular (Dr Bary) if needed if not improving over weekend given prior reduction in MARJORIE but blood flow on exam does appear adequate and remains on ASA, Lovenox SQ for DVT prophlaxis Lasix 40mg daily with spironolactone 12.5mg PO daily for assistance w/ edema Monitor labs/exam. F/u Cx from wound center 06/06 (2) Acute post-traumatic wound infection: Plan: Nonhealing with polymicrobial infection and remains on Zosyn IV for now and cxs pending Wound RN consult placed but will not see over weekend. Has supplies w/ acetic acid and santyl in room and have ordered daily dressing changes in meantime. Diuretics for edema/Toradol for pain as above and will continue to monitor Will need ongoing f/u with wound center (3) H/O: HTN (hypertension): Plan: Chronic and well maintained on lasix/spironolactone and was recently discontinued on her chlorthalidone. Home Kcl was reduced to 20meq once daily given K 4s on admission but w/ 3.5 and prior lows have increased 20mg to TID (was on 40 QID) and will monitor in AM/adjust as needed. Prior renin/brandi levels sent and renin activity 24 and elevated (was obtained prior to starting aldactone) -- consider nephrology f/u at dc Monitor (4) HLD (hyperlipidemia): Plan: Chronic and remains on crestor Plan DVT proph: lovenox SQ while inpatient Dispo: continued inpatient stay on IV abx and monitoring cultures. Likely inpatient until at least Sunday pending course and will need ongoing f/u with wound center at discharge Admission and Anticipated Discharge Date Admission Date: June 06, 2024 Subjective No events overnight. Pt resting comfortably in bed. Review of Systems Review of Systems: CONST: Negative for fever, body aches and chills. HENT: Negative for neck pain/stiffness, headache, congestion, sore throat, swelling. EYES: Negative for discharge/pain or vision changes. RESP: Negative for cough/hemoptysis and shortness of breath. CV: Negative chest pain, difficulty breathing, palpitations. ABD: Negative pain, nausea, vomiting. : Negative increase frequency, dysuria, blood in urine or stool. MUSC: Negative for muscle aches, edema. SKIN: Negative rash, lesions/sores. NEURO: Negative headache, dizziness, weakness. Physical Exam Physical Exam: GENERAL APPEARANCE NAD, activity normal for age, well developed/ well nourished, no cyanosis, pallor, or diaphoresis. EYES lids/conjunctiva normal. EARS/NOSE/THROAT Mucous membranes moist, nares normal, lips/teeth normal uvula midline without oral pharyngeal erythema, exudate or swelling TMs normal bilaterally. No lymphangitis/lymphedema. HEAD/NECK normocephalic atraumatic, no facial trauma, neck is supple. RESPIRATORY respiratory effort normal, speaks in full sentences, no tripod position, no accessory muscle use. Lungs clear to auscultation without rhonchi, wheezes, rales CARDIAC Regular rate and rhythm, no edema. ABDOMINAL Soft, ND/NT. No evidence of fluid wave. No pulsatile masses on exam, rebound tenderness, Latif sign or pain over Mcburney's point. MUSCLES/EXTREMITIES No abnormal range of motion, no swelling. SKIN Warm, pink and dry. No rashes, dermatoses, petechiae or lesions. NEUROLOGICAL Speech is clear and appropriate. Normal level of consciousness. Gait and coordination are normal. 5/5 strength in all extremities. PSYCH Normal mood and affect. Judgement/competence is appropriate Results & Data Results & Data Vital Signs (Past 12 Hours) Vital Signs Temp Pulse Resp BP Pulse Ox O2 Del Method 06/08/24 07:15 36.4 C L 60 18 102/58 L 98 Room Air PG Care Time/CCT Total # of Minutes Spent Total Time Spent with Patient: Total time spent is greater than 50% in coordination of care (as documented) at patient's floor/unit and/or counseling patient: Coding Level of Care Code 20889 SUB INP/OBS CARE MIN Diagnoses Cellulitis L03.116 Laterality: left Site of cellulitis: extremity Site of cellulitis of extremity: lower extremity Acute post-traumatic wound infection T14.8XXA; L08.9 Encounter type: initial encounter H/O: HTN (hypertension) Z86.79 HLD (hyperlipidemia) E78.5 (1) Cellulitis Laterality: left Site of cellulitis: extremity Site of cellulitis of extremity: lower extremity Qualified Code(s): L03.116 - Cellulitis of left lower limb (2) Acute post-traumatic wound infection Encounter type: initial encounter Qualified Code(s): T14.8XXA - Other injury of unspecified body region, initial encounter; L08.9 - Local infection of the skin and subcutaneous tissue, unspecified
[2024-06-08] MEDS: LOPERAMIDE HCL 2 MG CAP PO PRN (18:27)
--- NOTE | 2024-06-09 09:01 | Hospitalist Progress Note ---
Date of Service June 09, 2024 Assessment & Plan (1) Cellulitis: Plan: 78yo female with admission for progression/worsening cellulitis to her LLE despite abx treatment from hospitalization from 05/23-05/29 as seen by wound center for debridement and cx pending (GS w/ moderate GNB at present) and was on Zosyn per ID and discharged on Cipro to complete the course (noting would not cover anaerobes) * cx 05/12 w/ ecoli, peptostrep, bacteroides * cx hospitalization 05/23 with pseudomonas Zosyn IV continued given prior cx WBC wnl. Afebrile. Blood cultures pending ID consult pending Wound RN consult placed but did place instructions for dressing changes in meantime w/ supplies brought from wound center Elevation encouraged Toradol 10mg IV x 1 for pain, monitor/continue as needed Did message vascular (Dr rBay) if needed if not improving over weekend given prior reduction in MARJORIE but blood flow on exam does appear adequate and remains on ASA, Lovenox SQ for DVT prophlaxis Lasix 40mg daily with spironolactone 12.5mg PO daily for assistance w/ edema Monitor labs/exam. Cx from wound center 06/06 + for E. Coli (2) Acute post-traumatic wound infection: Plan: Nonhealing with polymicrobial infection and remains on Zosyn IV for now and cxs pending Wound RN consult placed but will not see over weekend. Has supplies w/ acetic acid and santyl in room and have ordered daily dressing changes in meantime. Diuretics for edema/Toradol for pain as above and will continue to monitor Will need ongoing f/u with wound center (3) H/O: HTN (hypertension): Plan: Chronic and well maintained on lasix/spironolactone and was recently discontinued on her chlorthalidone. Home Kcl was reduced to 20meq once daily given K 4s on admission but w/ 3.5 and prior lows have increased 20mg to TID (was on 40 QID) and will monitor in AM/adjust as needed. Prior renin/brandi levels sent and renin activity 24 and elevated (was obtained prior to starting aldactone) -- consider nephrology f/u at dc Monitor (4) HLD (hyperlipidemia): Plan: Chronic and remains on crestor Plan DVT proph: lovenox SQ while inpatient Dispo: continued inpatient stay on IV abx and monitoring cultures. Likely inpatient until at least Sunday pending course and will need ongoing f/u with wound center at discharge Admission and Anticipated Discharge Date Admission Date: June 06, 2024 Subjective No events overnight. Pt resting comfortably in bed. Review of Systems Review of Systems: CONST: Negative for fever, body aches and chills. HENT: Negative for neck pain/stiffness, headache, congestion, sore throat, swelling. EYES: Negative for discharge/pain or vision changes. RESP: Negative for cough/hemoptysis and shortness of breath. CV: Negative chest pain, difficulty breathing, palpitations. ABD: Negative pain, nausea, vomiting. : Negative increase frequency, dysuria, blood in urine or stool. MUSC: Negative for muscle aches, edema. SKIN: Negative rash, lesions/sores. NEURO: Negative headache, dizziness, weakness. Physical Exam Physical Exam: GENERAL APPEARANCE NAD, activity normal for age, well developed/ well nourished, no cyanosis, pallor, or diaphoresis. EYES lids/conjunctiva normal. EARS/NOSE/THROAT Mucous membranes moist, nares normal, lips/teeth normal uvula midline without oral pharyngeal erythema, exudate or swelling TMs normal bilaterally. No lymphangitis/lymphedema. HEAD/NECK normocephalic atraumatic, no facial trauma, neck is supple. RESPIRATORY respiratory effort normal, speaks in full sentences, no tripod position, no accessory muscle use. Lungs clear to auscultation without rhonchi, wheezes, rales CARDIAC Regular rate and rhythm, no edema. ABDOMINAL Soft, ND/NT. No evidence of fluid wave. No pulsatile masses on exam, rebound tenderness, Latif sign or pain over Mcburney's point. MUSCLES/EXTREMITIES No abnormal range of motion, no swelling. SKIN Warm, pink and dry. No rashes, dermatoses, petechiae or lesions. NEUROLOGICAL Speech is clear and appropriate. Normal level of consciousness. Gait and coordination are normal. 5/5 strength in all extremities. PSYCH Normal mood and affect. Judgement/competence is appropriate Results & Data Results & Data Vital Signs (Past 12 Hours) Vital Signs Temp Pulse Resp BP Pulse Ox O2 Del Method 06/09/24 07:26 36.7 C 64 16 110/71 96 Room Air 06/08/24 22:06 36.6 C 69 16 96/56 L 97 Room Air PG Care Time/CCT Total # of Minutes Spent Total Time Spent with Patient: Total time spent is greater than 50% in coordination of care (as documented) at patient's floor/unit and/or counseling patient: Coding Level of Care Code 20730 SUB INP/OBS CARE 2/35MIN Diagnoses Cellulitis L03.116 Laterality: left Site of cellulitis: extremity Site of cellulitis of extremity: lower extremity Acute post-traumatic wound infection T14.8XXA; L08.9 Encounter type: initial encounter H/O: HTN (hypertension) Z86.79 HLD (hyperlipidemia) E78.5 (1) Cellulitis Laterality: left Site of cellulitis: extremity Site of cellulitis of extremity: lower extremity Qualified Code(s): L03.116 - Cellulitis of left lower limb (2) Acute post-traumatic wound infection Encounter type: initial encounter Qualified Code(s): T14.8XXA - Other injury of unspecified body region, initial encounter; L08.9 - Local infection of the s kin and subcutaneous tissue, unspecified
[2024-06-09] MEDS ORDERED: VANCOMYCIN CONSULT ACTIVE PRN (09:34)
[2024-06-09] MEDS: VANCOMYCIN HCL 1,000 MG/270 ML BAG IV SCH (10:35)
--- NOTE | 2024-06-09 10:51 | Infectious Disease Consult ---
Date of Consultation June 09, 2024 Assessment & Plan (1) Cellulitis of left lower leg: (2) Peripheral vascular disease: (3) Chronic venous insufficiency: Plan 78yo F with h/o chronic venous insufficiency, venous stasis ulcers, PVD (high grade stenosis of L popliteal artery), HTN, HLD, DVT, LLE nonhealing ulcer, recurrent LLE cellulitis including ED presentation on 05/12 with trauma to left leg and c/f SSTI (WCX with E. coli, Peptostreptococcus anaerobius and Bacteroides fragilis, s/p augmentin), admission 05/23-05/29 with LLE cellulitis (cx with P aeruginosa, CT neg for abscess/OM, seen by vascular who deemed blood flow adequate) s/p ciprofloxacin x 7 days who presented on 06/06 from wound clinic due to worsening redness/swelling of LLE. She underwent superficial debridement by provider at wound clinic and wound culture was collected. She was nearly completed with cipro course. On admission, she was afebrile, vss. Initial labs with WBC wnl, Cr 1.21, LFT wnl. PCT 0.04. She was started on zosyn. ID consulted 06/09. Im going to leave on zosyn given recent Pseudomonas and she was just finishing course of ciprofloxacin which could be why its not in the recent cultures. E coli, which did grow, was resistant to cipro which could be why she has cellulitis. However, she says that she has not noted any improvement in the hospital (now day 3 of abx). Though MRSA did not grow on cultures and she doesnt have a prior history of this, Im going to add empiric coverage for now given lack of clinical improvement and check MRSA swab. Shes also having diarrhea so Estrella ordered C diff. # LLE cellulitis and nonhealing wound cx E coli, no clinical improvement # Diarrhea # H/o PVD - Estrella ordered stool C diff and MRSA nares screen - Estrella ordered vancomycin pharmacy dosed protocol will keep on this for at least 24-48hrs pending clinical change (if MRSA screen is negative but she starts improving on MRSA coverage, then would favor leaving on) - continue zosyn for now - wound care - I asked RN to outline the cellulitis for monitoring Will continue to follow. If questions or concerns, contact via [employer] or Infectious Disease Call Center . Jayleen Mejias MD [facility], Division of Infectious Diseases Consultation Information Consultation was provided via telemedicine using two-way real-time interactive telecommunication between the patient and the telemedicine provider. For the duration of the visit, the provider was performing the assessment from a different facility than the patient. This includesuse of bluetooth stethoscope forauscultationperformed by the telepresenter that the telemedicine provider can hear if described in the physical exam. Cyber Crime Investigator contact information: Please call [facility] Call Center . (Phone Number For Physician Use Only) After establishing a telemedicine visit, patient was: Patient was verified with two unique identifiers, Patient/authorized rep acknowledged consent and un derstanding and Gave permission to continue telehealth session Time Spent with Patient: Initial => 75 min History of Present Illness Reason for Consultation: nonhealing wound, recurrent cellulitis Attending Physician: Jonathan Bradford MD History of Present Illness 78yo F with h/o chronic venous insufficiency, venous stasis ulcers, PVD (high grade stenosis of L popliteal artery), HTN, HLD, DVT, LLE nonhealing ulcer, recurrent LLE cellulitis including ED presentation on 05/12 with trauma to left leg and c/f SSTI (WCX with E. coli, Peptostreptococcus anaerobius and Bacteroides fragilis, s/p augmentin), admission 05/23-05/29 with LLE cellulitis (cx with P aeruginosa, CT neg for abscess/OM, seen by vascular who deemed blood flow adequate) s/p ciprofloxacin x 7 days who presented on 06/06 from wound clinic due to worsening redness/swelling of LLE. She underwent superficial debridement by provider at wound clinic and wound culture was collected. She was nearly completed with cipro course. On admission, she was afebrile, vss. Initial labs with WBC wnl, Cr 1.21, LFT wnl. PCT 0.04. She was started on zosyn. ID consulted 06/09. On evaluation, patient reports that her leg redness and pain is not getting better on current antibiotics. She also reports having diarrhea that started since she has been in the hospital. No abdominal pain. Allergies Allergy/AdvReac Type Severity Reaction Status Date / Time No Known Allergies Allergy Verified 06/06/24 15:13 Home Medications Medication Instructions Recorded Confirmed Type aspirin 81 mg tablet,delayed 81 mg PO QAM 02/14/19 06/06/24 History release (Adult Low Dose Aspirin) furosemide 40 mg tablet 40 mg PO QAM 02/14/19 06/06/24 History multivitamin 1 tab PO HS 02/14/19 06/06/24 History rosuvastatin 40 mg tablet (Crestor) 40 mg PO HS 02/14/19 06/06/24 History conjugated estrogens 1.25 mg 1.25 mg PO DAILY 08/31/20 06/06/24 History tablet (Premarin) potassium chloride 20 mEq 40 meq PO QID 01/16/23 06/06/24 History tablet,extended release(part/cryst) calcium carbonate (Calcium 600) 600 mg PO BID 02/08/23 06/06/24 History finasteride 5 mg tablet 5 mg PO QAM 05/23/24 06/06/24 History ciprofloxacin HCl 500 mg tablet 500 mg PO BID #14 tabs 05/29/24 06/06/24 Rx spironolactone 25 mg tablet 12.5 mg (1/2 x 25 mg) PO DAILY #30 05/29/24 06/06/24 Rx tabs Patient History Medical History Coronary artery disease Cat bite Surgical History Status post endovenous radiofrequency ablation of saphenous vein Venoseal procedure done 2020 H/O bladder repair surgery Hx of CABG H/O: hysterectomy H/O hernia repair Family History Other No significant family history Social History Smoking Status: Never smoker Second Hand Exposure: No; Do You Dip or Chew Tobacco: No; Tobacco Cessation Education Requested by Patient: No Hx Alcohol Use: No Hx Substance Use: No Preferred Language: Czech Communication Ability: Effective Visual Impairment: Limited Hearing Ability: Normal Traffic Control Supervisor Required: No Beliefs That Will Affect Care: None marital status: Current Living Situation: Spouse Current Living Situation Comment: Lives with . current occupational status: unemployed How many Children do You have: 3 How many Children do You have Comment: 2 children are local, one may help with care as needed. Spouse also able to assist as needed. Other Information That Helps Us Care for You: No Feels Safe at Home: Yes Safety Concerns: Feels Safe At This Time Diet: regular during the past year weight has: remained stable Assistive Devices: Contacts, Glasses and Hospital Bed Review of System 10-point review of systems reviewed and are negative except for as above. Physical Exam Physical Exam: General: Awake, alert, no acute distress HEENT: NC/AT, EOMI, mmm Neck: supple Lungs: respirations non-labored Heart: nl peripheral perfusion Abdomen: soft, NT/ND Ext: LLE with erythema over lower leg, open anterior wound with brown discoloration Neuro: moving all extremities Results & Data Vital Signs (Past 12 Hours) Vital Signs Temp Pulse Resp BP Pulse Ox O2 Del Method 06/09/24 07:26 36.7 C 64 16 110/71 96 Room Air Laboratory Results Labs reviewed. Diagnostic Findings Imaging reviewed.
--- NOTE | 2024-06-09 11:50 | Pharmacy Report ---
Pharmacy PK ABX Note - Date of Service June 09, 2024 - Assessment and Plan Assessment 78 year old F receiving Zosyn and vancomycin for treatment of recurrent cellulitis of the left lower leg with nonhealing ulcer. Previous admission 05/12- left leg culture grew E.coli, Peptostreptococcus, and Bacteroides (treated with Augmentin). Readmitted for cellulitis and culture 05/25 grew Pseudomonas (treated with ciprofloxacin). She presented this admission on 06/06 from the wound clinic where she had a superficial debridement with wound culture collection. * Pertinent microbiologic data includes: left leg culture from 06/06 is growing E. coli S to zosyn; Preliminary blood culture from 06/06 is NGTD * MRSA nares screen ordered today * ID added vanco due to no clinical improvement with zosyn alone. Day # 1 of vancomycin therapy. Plan Vancomycin * Loading dose: 1000 mg IV x 1 * Maintenance dose: 500 mg IV every 12 hours * Regimen is predicted to achieve target AUC/IRVING of 400-600 mg/L.hr * Random level ordered for: 06/11/24 with morning labs Pharmacy will continue to follow and will adjust dose/frequency as necessary. Thank you. Pharmacy has transitioned to AUC monitoring for vancomycin. AUC/IRVING is the preferred PK/PD target and is associated with decreased risk of nephrotoxicity compared to traditional trough targets.
[2024-06-09] MEDS: VANCOMYCIN 500 MG in NSS 100mL IV SCH (20:47)
[2024-06-10 07:37] LABS: Creatinine Clr Calc Pharmacy 42.8 ml/min
--- NOTE | 2024-06-10 08:51 | Infectious Disease Progress Nt ---
Date of Service June 10, 2024 Assessment & Plan (1) Cellulitis of left lower leg: (2) Peripheral vascular disease: (3) Chronic venous insufficiency: Plan 78yo F with h/o chronic venous insufficiency, venous stasis ulcers, PVD (high grade stenosis of L popliteal artery), HTN, HLD, DVT, LLE nonhealing ulcer, recurrent LLE cellulitis including ED presentation on 05/12 with trauma to left leg and c/f SSTI (WCX with E. coli, Peptostreptococcus anaerobius and Bacteroides fragilis, s/p augmentin), admission 05/23-05/29 with LLE cellulitis (cx with P aeruginosa, CT neg for abscess/OM, seen by vascular who deemed blood flow adequate) s/p ciprofloxacin x 7 days who presented on 06/06 from wound clinic due to worsening redness/swelling of LLE. She underwent superficial debridement by provider at wound clinic and wound culture was collected. She was nearly completed with cipro course. On admission, she was afebrile, vss. Initial labs with WBC wnl, Cr 1.21, LFT wnl. PCT 0.04. She was started on zosyn. ID consulted 06/09. Vancomycin added 06/09 given lack of clinical improvement. MRSA screen negative. Today there is some mild improvement in redness and swelling. Despite 3 days of zosyn with cultures just growing E coli, she did not have any clinical improvement. Although MRSA screen is negative, given some improvement in redness/swelling today, Im going to keep on vancomycin and de-escalate zosyn to CTX. Will keep on IV antibiotics for now. # LLE cellulitis and nonhealing wound cx E coli # Diarrhea C diff neg # H/o PVD - continue vancomycin pharmacy dosed protocol - I've stopped zosyn and started CTX 2g IV daily - wound care - monitor on IV antibiotics for now Will continue to follow. If questions or concerns, contact via [employer] or Infectious Disease Call Center . Jayleen Mejias MD [facility], Division of Infectious Diseases Admission and Anticipated Discharge Date Admission Date: June 06, 2024 Subjective Subsequent visit was provided via telemedicine using two-way real-time interactive telecommunication between the patient and the telemedicine provider. For the duration of the visit, the provider was performing the assessment from a different facility than the patient. This includesuse of bluetooth stethoscope forauscultationperformed by the telepresenter that the telemedicine provider can hear if described in the physical exam. [employer] contact information: Please call [facility] Connect Call Center . (Phone Number For Physician Use Only) After establishing a telemedicine visit, patient was: Patient was verified with two unique identifiers, Patient/authorized rep acknowledged consent and understanding and Gave permission to continue telehealth session Time Spent with Patient: Subsequent => 35 min Patient says she has less swelling in the leg today, but says it could be because its not as dependent. Still having loose stools. Physical Exam Physical Exam: General: Awake, alert, no acute distress HEENT: NC/AT, EOMI, mmm Neck: supple Lungs: respirations non-labored Heart: nl peripheral perfusion Abdomen: soft, NT/ND Ext: LLE with erythema over lower leg with some mild improvment at edges, open anterior wound with yellow drainage on dressing Neuro: moving all extremities Results & Data Vital Signs (Past 12 Hours) Vital Signs Temp Pulse Resp BP Pulse Ox O2 Del Method 06/10/24 07:23 36.4 C L 63 16 93/58 L 96 Room Air Laboratory Results Labs reviewed.
[2024-06-10] MEDS: cefTRIAXone SODIUM 2,000 MG/50 ML BAG IV SCH (09:15)
--- NOTE | 2024-06-10 09:58 | Hospitalist Progress Note ---
Date of Service June 10, 2024 Assessment & Plan (1) Cellulitis: Plan: 78yo female with admission for progression/worsening cellulitis to her LLE despite abx treatment from hospitalization from 05/23-05/29 as seen by wound center for debridement and cx pending (GS w/ moderate GNB at present) and was on Zosyn per ID and discharged on Cipro to complete the course (noting would not cover anaerobes) * cx 05/12 w/ ecoli, peptostrep, bacteroides * cx hospitalization 05/23 with pseudomonas Zosyn IV continued given prior cx WBC wnl. Afebrile. Blood cultures pending ID consult appreciated Wound RN consult placed but did place instructions for dressing changes in meantime w/ supplies brought from wound center Elevation encouraged Toradol 10mg IV x 1 for pain, monitor/continue as needed Did message vascular (Dr Bray) if needed if not improving over weekend given prior reduction in MARJORIE but blood flow on exam does appear adequate and remains on ASA, Lovenox SQ for DVT prophlaxis Lasix 40mg daily with spironolactone 12.5mg PO daily for assistance w/ edema Monitor labs/exam. Cx from wound center 06/06 + for E. Coli ABX changed to rocephin and vancomycin as per ID (2) Acute post-traumatic wound infection: Plan: Nonhealing with polymicrobial infection and remains on Zosyn IV for now and cxs pending Wound RN consult placed but will not see over weekend. Has supplies w/ acetic acid and santyl in room and have ordered daily dressing changes in meantime. Diuretics for edema/Toradol for pain as above and will continue to monitor Will need ongoing f/u with wound center (3) H/O: HTN (hypertension): Plan: Chronic and well maintained on lasix/spironolactone and was recently discontinued on her chlorthalidone. Home Kcl was reduced to 20meq once daily given K 4s on admission but w/ 3.5 and prior lows have increased 20mg to TID (was on 40 QID) and will monitor in AM/adjust as needed. Prior renin/brandi levels sent and renin activity 24 and elevated (was obtained prior to starting aldactone) -- consider nephrology f/u at [facility] Monitor (4) HLD (hyperlipidemia): Plan: Chronic and remains on crestor Plan DVT proph: lovenox SQ while inpatient Dispo: continued inpatient stay on IV abx Admission and Anticipated Discharge Date Admission Date: June 06, 2024 Subjective Pt states there is mild improvement to her leg wound. Review of Systems Review of Systems: CONST: Negative for fever, body aches and chills. HENT: Negative for neck pain/stiffness, headache, congestion, sore throat, swelling. EYES: Negative for discharge/pain or vision changes. RESP: Negative for cough/hemoptysis and shortness of breath. CV: Negative chest pain, difficulty breathing, palpitations. ABD: Negative pain, nausea, vomiting. : Negative increase frequency, dysuria, blood in urine or stool. MUSC: Negative for muscle aches, edema. SKIN: Negative rash, lesions/sores. NEURO: Negative headache, dizziness, weakness. Physical Exam Physical Exam: GENERAL APPEARANCE NAD, activity normal for age, well developed/ well nourished, no cyanosis, pallor, or diaphoresis. EYES lids/conjunctiva normal. EARS/NOSE/THROAT Mucous membranes moist, nares normal, lips/teeth normal uvula midline without oral pharyngeal erythema, exudate or swelling TMs normal bilaterally. No lymphangitis/lymphedema. HEAD/NECK normocephalic atraumatic, no facial trauma, neck is supple. RESPIRATORY respiratory effort normal, speaks in full sentences, no tripod position, no accessory muscle use. Lungs clear to auscultation without rhonchi, wheezes, rales CARDIAC Regular rate and rhythm, no edema. ABDOMINAL Soft, ND/NT. No evidence of fluid wave. No pulsatile masses on exam, rebound tenderness, Latif sign or pain over Mcburney's point. MUSCLES/EXTREMITIES No abnormal range of motion, no swelling. SKIN Warm, pink and dry. No rashes, dermatoses, petechiae or lesions. NEUROLOGICAL Speech is clear and appropriate. Normal level of consciousness. Gait and coordination are normal. 5/5 strength in all extremities. PSYCH Normal mood and affect. Judgement/competence is appropriate Results & Data Results & Data Vital Signs (Past 12 Hours) Vital Signs Temp Pulse Resp BP Pulse Ox O2 Del Method 06/10/24 07:23 36.4 C L 63 16 93/58 L 96 Room Air PG Care Time/CCT Total # of Minutes Spent Total Time Spent with Patient: Total time spent is greater than 50% in coordination of care (as documented) at patient's floor/unit and/or counseling patient: Coding Level of Care Code 81875 SUB INP/OBS CARE Diagnoses Cellulitis L03.116 Laterality: left Site of cellulitis: extremity Site of cellulitis of extremity: lower extremity Acute post-traumatic wound infection T14.8XXA; L08.9 Encounter type: initial encounter H/O: HTN (hypertension) Z86.79 HLD (hyperlipidemia) E78.5 (1) Cellulitis Laterality: left Site of cellulitis: extremity Site of cellulitis of extremity: lower extremity Qualified Code(s): L03.116 - Cellulitis of left lower limb (2) Acute post-traumatic wound infection Encounter type: initial encounter Qualified Code(s): T14.8XXA - Other injury of unspecified body region, initial encounter; L08.9 - Local infection of the skin and subcutaneous tissue, unspecified
[2024-06-10 15:28] VITALS: O2SAT 97
[2024-06-10] MEDS: ALUMINUM/MAGNESIUM SUSP 30 ML UDC PO PRN (21:54)
[2024-06-11 06:03] LABS: Creatinine Clr Calc Pharmacy 52.9 ml/min
[2024-06-11] MEDS: VANCOMYCIN LEVEL ONE (07:32)
[2024-06-11 07:43] VITALS: BP 99/54; PULSE 67; RESP 14; TEMP 97.5
--- NOTE | 2024-06-11 09:25 | Pharmacy Report ---
Pharmacy PK ABX Note - Date of Service June 11, 2024 - Assessment and Plan Assessment 06/11: Reviewed vancomycin level, predicting subtherapeutic AUC/IRVING, will increase dosing slightly for better probability of goal AUC/IRVING attainment. Switched from Zosyn to ceftriaxone, ID following continue vancomycin. 06/09: 78 year old F receiving Zosyn and vancomycin for treatment of recurrent cellulitis of the left lower leg with nonhealing ulcer. Previous admission 05/12- left leg culture grew E.coli, Peptostreptococcus, and Bacteroides (treated with Augmentin). Readmitted for cellulitis and culture 05/25 grew Pseudomonas (treated with ciprofloxacin). She presented this admission on 06/06 from the wound clinic where she had a superficial debridement with wound culture collection. * Pertinent microbiologic data includes: left leg culture from 06/06 is growing E. coli S to zosyn; Preliminary blood culture from 06/06 is NGTD * MRSA nares screen ordered today * ID added vanco due to no clinical improvement with zosyn alone. Day # 1 of vancomycin therapy. Plan Vancomycin * Loading dose: 1000 mg IV x 1 * Previous maintenance dose: 500 mg IV every 12 hours * Increase maintenance dose to vancomycin 750mg Q12H for a predicted AUC/IRVING of 551 at steady state * Regimen is predicted to achieve target AUC/IRVING of 400-600 mg/L.hr * Random level ordered for: 06/13/24 with morning labs Pharmacy will continue to follow and will adjust dose/frequency as necessary. Thank you. Pharmacy has transitioned to AUC monitoring for vancomycin. AUC/IRVING is the preferred PK/PD target and is associated with decreased risk of nephrotoxicity compared to traditional trough targets.
--- NOTE | 2024-06-11 09:41 | Infectious Disease Progress Nt ---
Date of Service June 11, 2024 Assessment & Plan (1) Cellulitis of left lower leg: (2) Peripheral vascular disease: (3) Chronic venous insufficiency: Plan 78yo F with h/o chronic venous insufficiency, venous stasis ulcers, PVD (high grade stenosis of L popliteal artery), HTN, HLD, DVT, LLE nonhealing ulcer, recurrent LLE cellulitis including ED presentation on 05/12 with trauma to left leg and c/f SSTI (WCX with E. coli, Peptostreptococcus anaerobius and Bacteroides fragilis, s/p augmentin), admission 05/23-05/29 with LLE cellulitis (cx with P aeruginosa, CT neg for abscess/OM, seen by vascular who deemed blood flow adequate) s/p ciprofloxacin x 7 days who presented on 06/06 from wound clinic due to worsening redness/swelling of LLE. She underwent superficial debridement by provider at wound clinic and wound culture was collected. She was nearly completed with cipro course. On admission, she was afebrile, vss. Initial labs with WBC wnl, Cr 1.21, LFT wnl. PCT 0.04. She was started on zosyn. ID consulted 06/09. Vancomycin added 06/09 given lack of clinical improvement after 3 days of zosyn. MRSA screen negative. However, given improvement noted only after vancomycin was added, MRSA coverage continued. Her leg redness and swelling is much better today. Open wound with yellow drainage, which I think for which wound care should be helpful. Im going to keep her on the current regimen, which can be changed to PO for discharge. Options include doxy + either cefpodoxime or augmentin. Could also use Bactrim but shes elderly so will hold off on this. Micro: 06/06 BCX: ngtd 06/06 WCX: E coli (R-FQ, amp, S-augmentin, CTX) Abx: Zosyn 06/06->CTX 06/10-present Vanc 06/09-present # LLE cellulitis and nonhealing wound cx E coli - improving # Diarrhea C diff neg # H/o PVD - continue vancomycin pharmacy dosed protocol - continue CTX 2g IV daily - on discharge, antibiotics can be changed to doxycycline 100mg PO bid and cefpodoxime 400mg PO bid to complete a duration of 7 days (end through 06/15) > alternatively can use doxycycline + augmentin - close follow up with wound care - ok to discharge form ID standpoint Will discontinue active follow up at this time. Please do not hesitate to reconsult the Infectious Diseases service as needed. Jayleen Mejias MD [facility], Division of Infectious Diseases IDConnect: [phone] Admission and Anticipated Discharge Date Admission Date: June 06, 2024 Subjective Subsequent visit was provided via telemedicine using two-way real-time interactive telecommunication between the patient and the telemedicine provider. For the duration of the visit, the provider was performing the assessment from a different facility than the patient. This includesuse of bluetooth stethoscope forauscultationperformed by the telepresenter that the telemedicine provider can hear if described in the physical exam. [employer] contact information: Please call [facility] Connect Call Center . (Phone Number For Physician Use Only) After establishing a telemedicine visit, patient was: Patient was verified with two unique identifiers, Patient/authorized rep acknowledged consent and understanding and Gave permission to continue telehealth session Time Spent with Patient: Subsequent => 35 min Patient feels leg is better today. Pain is also less. Physical Exam Physical Exam: General: Awake, alert, no acute distress HEENT: NC/AT, EOMI, mmm Neck: supple Lungs: respirations non-labored Heart: nl peripheral perfusion Abdomen: soft, NT/ND Ext: LLE with improving erythema over lower leg, open anterior wound with yellow drainage Neuro: moving all extremities Results & Data Vital Signs (Past 12 Hours) Vital Signs Temp Pulse Resp BP Pulse Ox O2 Del Method 06/11/24 07:43 36.4 C L 67 14 99/54 L 97 Room Air Laboratory Results Labs reviewed. Diagnostic Findings Imaging reviewed.
--- NOTE | 2024-06-11 10:34 | Discharge Summary ---
Discharge Summary Date of Service June 11, 2024 Principal Dx & Hospital Course #1 = Principal Diagnosis (1) Cellulitis: 78yo female with admission for progression/worsening cellulitis to her LLE despite abx treatment from hospitalization from 05/23-05/29 as seen by wound center for debridement and cx pending (GS w/ moderate GNB at present) and was on Zosyn per ID and discharged on Cipro to complete the course (noting would not cover anaerobes) * cx 05/12 w/ ecoli, peptostrep, bacteroides * cx hospitalization 05/23 with pseudomonas Zosyn IV continued given prior cx WBC wnl. Afebrile. Blood cultures pending ID consult appreciated Wound RN consult placed but did place instructions for dressing changes in meantime w/ supplies brought from wound center Elevation encouraged Toradol 10mg IV x 1 for pain, monitor/continue as needed Did message vascular (Dr Bray) if needed if not improving over weekend given prior reduction in MARJORIE but blood flow on exam does appear adequate and remains on ASA, Lovenox SQ for DVT prophlaxis Lasix 40mg daily with spironolactone 12.5mg PO daily for assistance w/ edema Monitor labs/exam. Cx from wound center 06/06 + for E. Coli ABX changed to rocephin and vancomycin as per ID OK to d/c on doxycycline and cefpodoxime (2) Acute post-traumatic wound infection: Nonhealing with polymicrobial infection and remains on Zosyn IV for now and cxs pending Wound RN consult placed but will not see over weekend. Has supplies w/ acetic acid and santyl in room and have ordered daily dressing changes in meantime. Diuretics for edema/Toradol for pain as above and will continue to monitor Will need ongoing f/u with wound center (3) H/O: HTN (hypertension): Chronic and well maintained on lasix/spironolactone and was recently discontinued on her chlorthalidone. Home Kcl was reduced to 20meq once daily given K 4s on admission but w/ 3.5 and prior lows have increased 20mg to TID (was on 40 QID) and will monitor in AM/adjust as needed. Prior renin/brandi levels sent and renin activity 24 and elevated (was obtained prior to starting aldactone) -- consider nephrology f/u at pr Monitor (4) HLD (hyperlipidemia): Chronic and remains on crestor Plan DVT proph: lovenox SQ while inpatient Dispo: continued inpatient stay on IV abx Admission HPI Per Admitting Provider Mary Carmen is a 78 yo F with a pmhx of HTN, HLD, chronic venous stasis/venous insufficiency, and h/o DVT who presents to the ER today from wound care clinic due to worsening redness and swelling of LLE due to nonhealing wound. Patient had initially presented to the ER on 05/12 following hitting her leg with her luggage. Wound cultures collected in the ER grew E. coli, Peptostreptococcus anaerobius and Bacteroides fragilis. Hospitalists were consulted and she was discharged on a course of Augmentin. She noted that while on the medication, her pain and redness worsened and she returned to the ER on 05/23 where she was admitted and placed on empiric broad spectrum IV antibiotic therapy. She had a LLE CT w/ and w/o contrast that showed moderate to severe cellulitis but no drainable abscess or evidence of osteomyelitis. Repeat cultures grew Pseudomona s. At that time, ID was consulted and recommended Zosyn. Abx were changed to reflect this. She was evaluated by vascular surgery (Dr. Bray) and had both venous and arterial dopplers performed. Arterial doppler noted high-grade stenosis of the left popliteal artery posterior to the knee without occlusion but ultimately blood flow was deemed adequate for wound healing and no further intervention was needed. She was discharged on 05/29 on Cipro to complete orally at home. She has been following with the wound clinic where she was seen today and noted to have worsening redness, swelling and a film over the wound that she describes as looking like "lard." She underwent superficial debridement by provider and another wound culture was collected. She is nearly completed with her Cipro and subsequently, wound care recommended she return to the ER for IV abx. She is currently resting comfortably in her ER bay, has no complaints other than feeling cold. No pain in LLE and she denies fever. Labs are unremarkable, no leukocytosis, procalcitonin normal. She was given a dose of Zosyn 4.5g in the ER and has been referred to hospital medicine team for admission. Discharge Exam GENERAL APPEARANCE NAD, activity normal for age, well developed/ well nourished, no cyanosis, pallor, or diaphoresis. EYES lids/conjunctiva normal. EARS/NOSE/THROAT Mucous membranes moist, nares normal, lips/teeth normal uvula midline without oral pharyngeal erythema, exudate or swelling TMs normal bilaterally. No lymphangitis/lymphedema. HEAD/NECK normocephalic atraumatic, no facial trauma, neck is supple. RESPIRATORY respiratory effort normal, speaks in full sentences, no tripod position, no accessory muscle use. Lungs clear to auscultation without rhonchi, wheezes, rales CARDIAC Regular rate and rhythm, no edema. ABDOMINAL Soft, ND/NT. No evidence of fluid wave. No pulsatile masses on exam, rebound tenderness, Latif sign or pain over Mcburney's point. MUSCLES/EXTREMITIES No abnormal range of motion, no swelling. SKIN Warm, pink and dry. No rashes, dermatoses, petechiae or lesions. NEUROLOGICAL Speech is clear and appropriate. Normal level of consciousness. Gait and coordination are normal. 5/5 strength in all extremities. PSYCH Normal mood and affect. Judgement/competence is appropriate Discharge Plan Discharge Items Patient Disposition: Home - Self-Care Reason For Visit: CELLULITIS LLE, NONHEALING WOUND Discharge Diagnosis: LLE cellulitis Condition on Discharge: Good Activity: Resume your previous activity Non-emergency contact: Primary Care Provider Call non-emergency contact if: you have any medication questions Follow-up/Referrals: Amol Voss MD [Primary Care Provider] - Diet: Regular Addtl Attending Provider Instructions: Follow up with PMD in 2 weeks Pending Studies at Discharge: No Stand-Alone Forms: My [employer], Smoking Cessation Medications and DC Order Prescriptions: New doxycycline hyclate 100 mg capsule 100 mg PO BID 7 Days Qty: 14 0RF cefpodoxime 200 mg tablet 400 mg PO BID Qty: 30 0RF Rx Instructions: must administer with a meal/food Continued aspirin [Adult Low Dose Aspirin] 81 mg tablet,delayed release (DR/EC) 81 mg PO QAM multivitamin tablet 1 tab PO HS furosemide 40 mg tablet 40 mg PO QAM rosuvastatin [Crestor] 40 mg tablet 40 mg PO HS calcium carbonate [Calcium 600] 600 mg calcium (1,500 mg) Tablet 600 mg PO BID Premarin 1.25 mg tablet 1.25 mg PO DAILY potassium chloride 20 mEq tablet,ER particles/crystals 40 meq PO QID finasteride 5 mg tablet 5 mg PO QAM spironolactone 25 mg Tablet 12.5 mg PO DAILY Qty: 30 0RF Discontinued ciprofloxacin HCl 500 mg tablet 500 mg PO BID Qty: 14 0RF Rx Instructions: Start Date 06/02/24 x4 day supply Discharge Orders: Discharge Order (Routine); Ordered 06/11/24 Ordered By: Jonathan Bradford Admission Data Admit Date/Time: 06/06/24 16:19 Attending Provider: Jonathan Bradford Admit Provider: Luis Alfredo Leahy Primary Care Provider: Amol Voss Other Providers: Luis Alfredo Leahy; Keyona Alvarado; Misti Cote; Jayleen Mejias; Juanjose Ding; Socorro Sanford; Taylor Mendez; [facility] Fax Hospital Stay Data Consultations 06/06/24 13:52 ED Decision to Admit Stat 06/06/24 18:50 Consult Infectious Diseases Routine Pending Results Patient Have Any Pending Studies at Discharge: No Discharge Instructions Given to Patient (Per Discharging Provider) Follow up with PMD in 2 weeks Total Time Total Time Spent Total Time Spent (In Minutes): 50 Coding Level of Care Code 42821 INP/OBS DISCH >30 MIN Diagnoses Cellulitis L03.116 Laterality: left Site of cellulitis: extremity Site of cellulitis of extremity: lower extremity Acute post-traumatic wound infection T14.8XXA; L08.9 Encounter type: initial encounter H/O: HTN (hypertension) Z86.79 HLD (hyperlipidemia) E78.5
[2024-06-11] MEDS ORDERED: VANCOMYCIN 750 MG in SODIUM CHLORIDE 0.9% 250 ML IV SCH (19:00)
== END 2024-06-11 13:49 | disposition home health service (06) | DRG 923 ==
LOC: ED 12:38 → SUATTDRO 16:19 → EDINP 16:19 → 3W 18:51